=== PATIENT | female | born 1960 | race Caucasian/White ===

== ENCOUNTER 2023-06-27 20:18 | Emergency (ER) | payer MEDICARE, SELFPAY ==
[2023-06-27 20:39] VITALS: BP 145/92; PULSE 75; RESP 18; TEMP 36.4; O2SAT 99
--- NOTE | 2023-06-27 20:46 | XR_ITS ---
The [address] [address] Patient Name: JANET ELIAS MRN: [id number] date: 1960 Sex: F Assigned Patient Location: ER Current Patient Location: ED.MAIN Accession/Order Number: [id number] Exam Date: 06/27/2023 21:08 Report Date: 06/27/2023 21:38 At the request of: JIN LUIS Procedure: XR knee RT 3V EXAM: XR knee RT 3V HISTORY: Knee pain COMPARISON: None. TECHNIQUE: 3 views right knee FINDINGS: Status post right knee total arthroplasty. No evident hardware complication. Moderate to large joint effusion. No acute osseous abnormality. Possible posterior subluxation of the knee joint on the lateral view. XR/XR knee RT 3V IMPRESSION: Possible posterior subluxation of the knee joint on lateral view. Moderate to large joint effusion without acute osseous abnormality. No definite hardware complication otherwise. Electronically authenticated by: COLBY TORRES Date: 06/27/2023 21:38
--- NOTE | 2023-06-27 20:53 | ED_ITS ---
HPI - Extremity Injury (Lower) General Chief Complaint: Extremity Problem, Nontraumatic Stated Complaint: SEVERE KNEE PAIN Time Seen by Provider: 06/27/23 20:34 Source: patient Mode of arrival: Wheelchair Limitations: physical limitation Limitations comment: can't bear weight on right lower extremity History of Present Illness HPI Narrative: patient is a 62-year-old female who presents to the emergency department for the evaluation of right knee pain. She states she had a knee replacement twenty [address] Hurtado, she states in the last several weeks she has had intermittent pain to the anteromedial right knee. She denies any mechanism of injury or trauma. She states today when she was at the [facility] she had significantly increased pain and difficulty bearing weight. She has not had any redness or drainage from the knee. No fevers or vomiting. Her orthopedic surgeon is not aware of the symptoms, she has not yet been seen in the office. Related Data Home Medications Medication Instructions Recorded Confirmed levothyroxine 88 mcg tablet mcg 06/27/23 meloxicam 15 mg tablet mg 06/27/23 metoprolol succinate 50 mg mg PO 06/27/23 tablet,extended release 24 hr Previous Rx's Medication Instructions Recorded hydrocodone 5 mg-acetaminophen 325 1 tab PO Q6H PRN pain #12 tabs 06/27/23 mg tablet methylprednisolone 4 mg tablets in See Rx Instructions .Route 06/27/23 a dose pack (Medrol (Shane)) .COMPLEX #21 ea Allergies Allergy/AdvReac Type Severity Reaction Status Date / Time sulfamethoxazole Allergy Rash Verified 06/27/23 20:46 [From Bactrim] trimethoprim [From Bactrim] Allergy Rash Verified 06/27/23 20:46 Review of Systems ROS Constitutional Denies: fever or chills Ears, nose, mouth, and throat Denies: throat pain or neck pain Respiratory Denies: shortness of breath Gastrointestinal Denies: nausea or vomiting Musculoskeletal Reports: extremity pain and joint pain; Denies: back pain or neck pain Integumentary/Breast Denies: rash Neurological Denies: headache Hematologic/Lymphatic Denies: easy bruising Allergic/Immunologic Denies: hives PFSH PFS Social History Smoking status: Former smoker Exam Narrative Exam Narrative: Gen.: Awake, alert, in no distress Head: Normocephalic, atraumatic ENT: Moist mucous membranes Respiratory: No respiratory distress Extremities: pain with flexion of the right knee, well-healed surgical incision over the anterior right knee. Joint effusion noted to the medial aspect of the anterior knee. No erythema, warmth or pain out of proportion on flexion of the right knee. No bony tenderness of the right tibia or ankle. No laxity of the patella. No posterior right knee tenderness or calf tenderness. Psych: Normal mood and affect Neuro: No focal neuro deficit Skin: Warm, dry, intact Constitutional Vital Signs, click to edit/add: Last Vital Signs Temp 97.6 F 06/27/23 20:39 Pulse 75 06/27/23 20:39 Resp 18 06/27/23 20:39 BP 145/92 H 06/27/23 20:39 Pulse Ox 99 06/27/23 20:39 O2 Del Method Room Air 06/27/23 20:39 Course Vital Signs Vital signs: Vital Signs Temperature 97.6 F 06/27/23 20:39 Pulse Rate 75 06/27/23 20:39 Respiratory Rate 18 06/27/23 20:39 Blood Pressure 145/92 H 06/27/23 20:39 Pulse Oximetry 99 06/27/23 20:39 Oxygen Delivery Method Room Air 06/27/23 20:39 Temperature 97.6 F 06/27/23 20:39 Pulse Rate 75 06/27/23 20:39 Respiratory Rate 18 06/27/23 20:39 Blood Pressure 145/92 H 06/27/23 20:39 Pulse Oximetry 99 06/27/23 20:39 Oxygen Delivery Method Room Air 06/27/23 20:39 MDM - Extremity Injury (Lower) MDM Narrative Medical decision making narrative: x-ray show intact hardware of the right knee, joint effusion palpated on exam. Patient placed in her knee immobilizer which fits her appropriately, she remains neurovascularly intact. Bone spur is noted on the x-rays, this may be contributing to the patient's pain and swelling. She is encouraged to stay off the leg as much as possible, she has crutches which are the appropriate height for her. She will be started on a Medrol Dosepak and a short course of analgesics. It was strongly recommended that she follow up with her orthopedic surgeon for further evaluation and treatment. Return to the Emergency Room if symptoms change or worsen. Medical Records Attestation: I reviewed the patient's medical records. Imaging Data XR knee: Attestation: I personally reviewed and interpreted this imaging study as follows: My impression: NAD Discharge Plan Discharge Chief Complaint: Extremity Problem, Nontraumatic Clinical Impression: Acute pain of right knee, Acute joint effusion Patient Disposition: Home, Self-Care Time of Disposition Decision: 21:32 Condition: Good Prescriptions / Home Meds: New hydrocodone-acetaminophen 5-325 mg tablet 1 tab PO Q6H PRN (Reason: pain) Qty: 12 0RF Rx Instructions: DX: M25.561 methylprednisolone [Medrol (Shane)] 4 mg tablets,dose pack See Rx Instructions .ROUTE .COMPLEX Qty: 21 0RF Rx Instructions: Taper as directed No Action metoprolol succinate 50 mg tablet extended release 24 hr PO meloxicam 15 mg tablet levothyroxine 88 mcg tablet Instructions: Knee Pain (ED) Stand Alone Forms: Portal Instructions Referrals: NOHELIA THOMSON [Primary Care Provider] - 1 week Willie Hurtado DO [Physician] - 1 week Discharge Date/Time: 06/27/23 21:51
[2023-06-27] MEDS: OXYCODONE HCL/ACETAMINOPHEN 5MG/325MG 1 TAB PO (21:10)
[2023-06-27] MEDS: PREDNISONE 20 MG TABLET 60 MG PO (21:10)
[2023-06-27] MEDS: KETOROLAC TROMETHAMINE 10 MG TABLET PO (21:47)
== END 2023-06-27 21:51 | disposition home or self-care (01) ==
PROVIDERS: Emergency Provider Internal Medicine; PCP Family Medicine
DX: M25.461 Effusion, right knee (principal); M25.561 Pain in right knee; Z96.651 Presence of right artificial knee joint; Z79.899 Other long term (current) drug therapy; Z79.890 Hormone replacement therapy; Z87.891 Personal history of nicotine dependence
CPT/HCPCS: 73562; 99283

== ENCOUNTER 2023-08-15 10:55 | Outpatient (OUT) | payer MEDICARE, SELFPAY ==
[2023-08-15 11:20] LABS: Eosinophils Absolute Auto 0.1 10^3/uL (0.0-0.7); Eosinophils Percent Auto 3.4 % (0.9-7.0); Hematocrit 39.8 % (36.0-48.0); Hemoglobin 13.1 g/dL (12.0-16.0); Immature Granulocytes Abs Auto 0.01 10^3/uL (0.00-0.03); Immature Granulocytes Pct Auto 0.3 % (0.0-0.5); Lymphocytes Absolute Auto 1.1 10^3/uL (1.2-3.8); Lymphocytes Percent Auto 28.5 % (20.5-60.0); Mean Corpuscular HGB Conc 32.9 g/dL (29.9-35.2); Mean Corpuscular Hemoglobin 29.8 pg (26.7-34.0); Mean Corpuscular Volume 90.5 fL (81.0-99.0); Mean Platelet Volume 9.7 fL (9.5-13.5); Monocytes Absolute Auto 0.3 10^3/uL (0.3-0.8); Monocytes Percent Auto 7.8 % (1.7-12.0); Neutrophils Absolute Auto 2.3 10^3/uL (1.4-6.5); Platelet Count 239 10^3/uL (150-450); Red Cell Distribution Width 12.6 % (11.0-15.0); White Blood Count 3.9 10^3/uL (4.0-11.0)
[2023-08-15 11:45] LABS: Erythrocyte Sedimentation Rate 31 mm/hr (<=30)
[2023-08-15 11:51] LABS: C Reactive Protein <0.50 mg/dL (<=0.50)
[2023-08-15 14:11] LABS: D Dimer 0.97 mg/L FEU (<=0.59)
== END 2023-08-15 10:56 | disposition home or self-care (01) ==
LOC: LAB 10:59
PROVIDERS: PCP Family Medicine; Visit Provider Orthopaedic Surgery
DX: Z96.651 Presence of right artificial knee joint (principal); T84.84XA Pain due to internal orthopedic prosthetic devices, implants and grafts, initial encounter
CPT/HCPCS: 36415; 85025; 85378; 85652; 86140

== ENCOUNTER 2023-10-09 13:49 | Outpatient (RCR) | payer MEDICARE, SELFPAY | END 2023-10-31 17:20 | disposition home or self-care (01) | LOC: PT 13:49 | PROVIDERS: PCP Family Medicine | DX: Z96.651 Presence of right artificial knee joint (principal); Z47.1 Aftercare following joint replacement surgery | CPT/HCPCS: 97110 ==

== ENCOUNTER 2024-11-22 09:57 | Outpatient (RCR) | payer MEDICARE, SELFPAY | END 2024-12-14 07:03 | disposition home or self-care (01) | LOC: PT 09:57 | PROVIDERS: PCP Family Medicine; Visit Provider Orthopaedic Surgery | DX: Z47.1 Aftercare following joint replacement surgery (principal); Z96.651 Presence of right artificial knee joint | CPT/HCPCS: 97110; 97113; 97161 ==

== ENCOUNTER 2025-05-23 13:40 | Outpatient (OUT) | payer MEDICARE, SELFPAY ==
--- OUTSIDE RECORDS SUMMARY | 2025-05-23 13:44 | XMS_ITS | Encounter Summary ---
Author Organization [facility] Address [address] [place] [address] Care Team Providers Care Semiconductor Dies Loader Name Role Phone Brooks Rodarte MD Primary Care Provider [phone] Encounter Details Date Type Department Care Team (Late st Contact Info) Description 01/04/2019 [facility] [address] [place] [address] Leila Wheeler, [facility] [address] [place] [address] Social History Tobacco Use Types Packs/Day Years Used Date Smoking Tobacco: Never Assessed Comments Unknown Sex and Gender Information Value Date Recorded Sex Assigned at Not on file Legal Sex Female 7:05 PM EDT Gender Identity Not on file Sexual Orientation Not on file documented as of this encounter Plan of Treatment Not on file documented as of this encounter Visit Diagnoses Not on filedocumented in this encounter Care Teams Semiconductor Dies Loader Relationship Specialty Start Date End Date Brooks Rodarte MD [address] [place] [address] PCP - General Family Medicine 07/04/23 documented as of this encounter
--- OUTSIDE RECORDS SUMMARY | 2025-05-23 13:44 | XMS_ITS | Encounter Summary ---
Author Organization [facility] Address [address] [place] [address] Care Team Providers Care Nitroglycerin Supervisor Name Role Phone Brooks Rodarte MD Primary Care Provider [phone] Encounter Details Date Type Department Care Team (Late st Contact Info) Description 11/28/2021 Abstract [facility] [address] [place] [address] Leila Wheeler, [facility] [address] [place] [address] Social History Tobacco Use Types Packs/Day Years [...] on filedocumented in this encounter Care Teams Nitroglycerin Supervisor Relationship Specialty Start Date End Date Brooks Rodarte MD [address] [place] [address] PCP - General Family Medicine 07/04/23 documented as of this encounter
--- OUTSIDE RECORDS SUMMARY | 2025-05-23 13:44 | XMS_ITS | Encounter Summary ---
Author Organization [facility] Address [address] [place] [address] Care Team Providers Care Acting Professor Name Role Phone Brooks Rodarte MD Primary Care Provider [phone] Encounter Details Date Type Department Care Team (Late st Contact Info) Description 04/23/2016 Abstract [facility] [address] [place] [address] Leila Wheeler, [facility] [address] [place] [address] Social History Tobacco Use Types Packs/Day Years [...] on filedocumented in this encounter Care Teams Acting Professor Relationship Specialty Start Date End Date Brooks Rodarte MD [address] [place] [address] PCP - General Family Medicine 07/04/23 documented as of this encounter
--- OUTSIDE RECORDS SUMMARY | 2025-05-23 13:44 | XMS_ITS | Clinical Summary ---
Author Organization [facility] Address [id number] [address] [place] [address] Care Team Providers Care Optician Name Role Phone Brooks Rodarte DO Primary Care Provider [phone] Immunizations Immunization Administration Dates Next Due Covid-19,mrna, Lnp-s, Pf, 50mcg/0.5ml 12+ Season al 07/08/2023 Social History Tobacco Use Types Packs/Day Years Used Date Smoking Tobacco: Never Assessed Childcare Answer Date Recorded Childcare Unknown 02/10/2019 Employment Answer Date Recorded Employment Unknown 02/10/2019 Comments Unknown Sex and Gender Information Value Date Recorded Sex Assigned at Not on file Legal Sex Female 12:02 PM EDT Gender Identity Not on file Sexual Orientation Not on file Plan of Treatment Health Maintenance Due Date Last Done Comments Depression Screening 1971 Tobacco Screening 1971 Adult BMI Screening 1977 DTaP,Tdap and Td Vaccines (1 - Tdap) 1978 Zoster (Shingles) Vaccine (1 of 2) 2009 Fall Risk Screening 2024 COVID-19 Vaccine (6 - 2024-2 6 season) 2025 07/08/2023, 07/02/2022, 07/31/2021, Additional history exists Influenza Vaccine 05/02/2025 07/08/2023, 07/02/2022 Medical Devices Not on file Insurance [facility] Care Teams Optician Relationship Specialty Start Date End Date Brooks Rodarte DO PCP - General Family Medicine 07/11/23
--- OUTSIDE RECORDS SUMMARY | 2025-05-23 13:44 | XMS_ITS | Encounter Summary ---
Author Organization [facility] Address [address] [place] [address] Care Team Providers Care Foot Miter Operator Name Role Phone Brooks Rodarte MD Primary Care Provider [phone] Encounter Details Date Type Department Care Team (Late st Contact Info) Description 12/30/2016 Abstract [facility] [address] [place] [address] Leila Wheeler, [facility] [address] [place] [address] Social History Tobacco Use Types Packs/Day Years [...] on filedocumented in this encounter Care Teams Foot Miter Operator Relationship Specialty Start Date End Date Brooks Rodarte MD [address] [place] [address] PCP - General Family Medicine 07/04/23 documented as of this encounter
--- OUTSIDE RECORDS SUMMARY | 2025-05-23 13:44 | XMS_ITS | Encounter Summary ---
Author Organization [facility] Address [address] [place] [address] Care Team Providers Care Statement Clerks Manager Name Role Phone Brooks Rodarte MD Primary Care Provider [phone] Encounter Details Date Type Department Care Team (Late st Contact Info) Description 12/30/2016 Abstract [facility] [address] [place] [address] Leila Wheeler, [facility] [address] [place] [address] Social History Tobacco Use Types Packs/Day Years [...] on filedocumented in this encounter Care Teams Statement Clerks Manager Relationship Specialty Start Date End Date Brooks Rodarte MD [address] [place] [address] PCP - General Family Medicine 07/04/23 documented as of this encounter
--- OUTSIDE RECORDS SUMMARY | 2025-05-23 13:44 | XMS_ITS | Encounter Summary ---
Author Organization [facility] Address [address] [place] [address] Care Team Providers Care Towel Weaver Name Role Phone Brooks Rodarte MD Primary Care Provider [phone] Encounter Details Date Type Department Care Team (Late st Contact Info) Description 05/20/2016 Abstract [facility] [address] [place] [address] Leila Wheeler, [facility] [address] [place] [address] Social History Tobacco Use Types Packs/Day Years [...] on filedocumented in this encounter Care Teams Towel Weaver Relationship Specialty Start Date End Date Brooks Rodarte MD [address] [place] [address] PCP - General Family Medicine 07/04/23 documented as of this encounter
--- OUTSIDE RECORDS SUMMARY | 2025-05-23 13:44 | XMS_ITS | Encounter Summary ---
Author Organization [facility] Address [address] [place] [address] Care Team Providers Care Prop Maker Name Role Phone Brooks Rodarte MD Primary Care Provider [phone] Encounter Details Date Type Department Care Team (Late st Contact Info) Description 10/23/2016 Abstract [facility] [address] [place] [address] Leila Wheeler, [facility] [address] [place] [address] Social History Tobacco Use Types Packs/Day Years [...] on filedocumented in this encounter Care Teams Prop Maker Relationship Specialty Start Date End Date Brooks Rodarte MD [address] [place] [address] PCP - General Family Medicine 07/04/23 documented as of this encounter
--- OUTSIDE RECORDS SUMMARY | 2025-05-23 13:44 | XMS_ITS | Encounter Summary ---
Author Organization [facility] Address [address] [place] [address] Care Team Providers Care Director Of [employer]ance [employer] Name Role Phone Brooks Rodarte MD Primary Care Provider [phone] Encounter Details Date Type Department Care Team (Late st Contact Info) Description 06/12/2016 Abstract [facility] [address] [place] [address] Leila Wheeler, [facility] [address] [place] [address] Social History Tobacco Use Types Packs/Day Years [...] on filedocumented in this encounter Care Teams Director Of [employer] Relationship Specialty Start Date End Date Brooks Rodarte MD [address] [place] [address] PCP - General Family Medicine 07/04/23 documented as of this encounter
--- OUTSIDE RECORDS SUMMARY | 2025-05-23 13:44 | XMS_ITS | Clinical Summary ---
Author Organization [facility] Address [address] [place] [address] Care Team Providers Care Authorization Representative Name Role Phone House, Brooks Betts MD Primary Care Provider [phone] Allergies Active Allergy Reactions Criticality Noted Date Comments Sulfamethoxazole-Trimethoprim 2022 Medications METOPROLOL SUCCINATE ER PO 50 mg. 05/16/2023 Act cuca esomeprazole (NexIUM) [address] capsule 1 capsule 1 (one) time each day at the same time. Active levothyroxine (Synthroid, Levoxyl) 100 MCG tablet 05/16/2023 Active levothyroxine (Synthroid, Levoxyl) 88 MCG tablet 05/16/2023 Active meloxicam (Mobic) 15 MG tablet Take 15 mg by mouth in the morning. Active triamterene-hyd roCHLOROthiazid e (Dyazide) 37.5-25 MG capsule Active Active Problems No known active problems Family History Medical History Relation Name Comments Emphysema Father motor vehicular accident Maternal Grandfather Heart disease Maternal Grandmother Stroke Maternal Grandmother Hypertension Mother Ovarian cancer Mother Emphysema Paternal Grandfather Heart disease Paternal Grandfather Relation Name Status Comments Father Maternal Grandfather Maternal Grandmother Mother Paternal Grandfather Paternal Grandmother Social History Tobacco Use Types Packs/Day Years Used Date Smoking Tobacco: Former Cigarettes Smokeless Tobacco: Never Tobacco Cessation:Counseling Given: Not Answered Alcohol Use Standard Drinks/Week Comments Yes 0 (1 standard drink = 0.6 oz pure alcohol) 1-2 drinks, monthly or less. caffeine intake: 2-3 cups per day. Comments Unknown Sex and Gender Information Value Date Recorded Sex Assigned at Not on file Legal Sex Female 7:05 PM EDT Gender Identity Not on file Sexual Orientation Not on file Last Filed Vital Signs Vital Sign Reading Time Taken Comments Blood Pressure 140/75 12/03/2021 12:00 PM EDT Pulse - - Temperature - - Respiratory Rate - - Oxygen Saturation - - Inhaled Oxygen Concentration - - Weight 88.9 kg (196 lb) 07/04/2023 8:32 AM EDT Height 152.4 cm (5') 07/04/2023 8:32 AM EDT Body Mass Index 38.28 07/04/2023 8:32 AM EDT Plan of Treatment Health Maintenance Due Date Last Done Comments CT Colonography 1959 Colonoscopy 1959 Colorectal Cancer Screening 1959 FIT-DNA 1959 FIT 1959 FOBT 1959 Sigmoidoscopy 1959 Pap Smear 1980 Cervical Cancer Screening 1989 HPV/Cotest 1989 Mammogram 1999 Pneumococcal Vaccine: 65+ Ye ars (1 of 1 - PCV) 2009 Influenza Vaccine (#1) 2025 07/08/2023, 2021 Insurance [employer] Care Teams Authorization Representative Relationship Specialty Start Date End Date Brooks Rodarte MD [address] [place] [address] PCP - General Family Medicine 07/04/23
--- OUTSIDE RECORDS SUMMARY | 2025-05-23 13:44 | XMS_ITS | Encounter Summary ---
Author Organization [facility] Address [address] [place] [address] Care Team Providers Care Leather Stitcher Name Role Phone Brooks Rodarte MD Primary Care Provider [phone] Encounter Details Date Type Department Care Team (Late st Contact Info) Description 03/26/2016 Abstract [facility] [address] [place] [address] Leila Wheeler, [facility] [address] [place] [address] Social History Tobacco Use Types Packs/Day Years [...] on filedocumented in this encounter Care Teams Leather Stitcher Relationship Specialty Start Date End Date Brooks Rodarte MD [address] [place] [address] PCP - General Family Medicine 07/04/23 documented as of this encounter
--- OUTSIDE RECORDS SUMMARY | 2025-05-23 13:44 | XMS_ITS | Encounter Summary ---
Author Organization [facility] Address [address] [place] [address] Care Team Providers Care Medical Records Assistant Name Role Phone Brooks Rodarte MD Primary Care Provider [phone] Encounter Details Date Type Department Care Team (Late st Contact Info) Description 12/02/2016 Abstract [facility] [address] [place] [address] Leila Wheeler, [facility] [address] [place] [address] Social History Tobacco Use Types Packs/Day Years [...] on filedocumented in this encounter Care Teams Medical Records Assistant Relationship Specialty Start Date End Date Brooks Rodarte MD [address] [place] [address] PCP - General Family Medicine 07/04/23 documented as of this encounter
--- OUTSIDE RECORDS SUMMARY | 2025-05-23 13:44 | XMS_ITS | Encounter Summary ---
Author Organization [facility] Address [address] [place] [address] Care Team Providers Care Roller Coaster Engineer Name Role Phone Brooks Rodarte MD Primary Care Provider [phone] Encounter Details Date Type Department Care Team (Late st Contact Info) Description 12/30/2016 Abstract [facility] [address] [place] [address] Leila Wheeler, [facility] [address] [place] [address] Social History Tobacco Use Types Packs/Day Years [...] on filedocumented in this encounter Care Teams Roller Coaster Engineer Relationship Specialty Start Date End Date Brooks Rodarte MD [address] [place] [address] PCP - General Family Medicine 07/04/23 documented as of this encounter
--- OUTSIDE RECORDS SUMMARY | 2025-05-23 13:44 | XMS_ITS | Encounter Summary ---
Author Organization [facility] Address [address] [place] [address] Care Team Providers Care Settlement Processor Name Role Phone Brooks Rodarte MD Primary Care Provider [phone] Encounter Details Date Type Department Care Team (Late st Contact Info) Description 10/29/2016 Abstract [facility] [address] [place] [address] Leila Wheeler, [facility] [address] [place] [address] Social History Tobacco Use Types Packs/Day Years [...] on filedocumented in this encounter Care Teams Settlement Processor Relationship Specialty Start Date End Date Brooks Rodarte MD [address] [place] [address] PCP - General Family Medicine 07/04/23 documented as of this encounter
--- OUTSIDE RECORDS SUMMARY | 2025-05-23 13:44 | XMS_ITS | Encounter Summary ---
Author Organization [facility] Address [address] [place] [address] Care Team Providers Care Practice Coordinator Name Role Phone Brooks Rodarte MD Primary Care Provider [phone] Encounter Details Date Type Department Care Team (Late st Contact Info) Description 04/07/2000 Abstract [facility] [address] [place] [address] Leila Wheeler, [facility] [address] [place] [address] Social History Tobacco Use Types Packs/Day Years [...] on filedocumented in this encounter Care Teams Practice Coordinator Relationship Specialty Start Date End Date Brooks Rodarte MD [address] [place] [address] PCP - General Family Medicine 07/04/23 documented as of this encounter
--- OUTSIDE RECORDS SUMMARY | 2025-05-23 13:47 | XMS_ITS | CCD ---
Author Organization [facility] CliniSyoh Care Team Providers Care First Aid Director Name Role Phone ANAM COVINGTON Unavailable Unavailable ANAM COVINGTON Unavailable Unavailable ANAM COVINGTON Unavailable Unavailable MAYER, BROOKS Unavailable Unavailable MAYER, DR POZO Primary Care Unavailable MAYER, DR POZO Admitting Unavailable SACRAMENTO, DR JAXSON Jefferson Consulting Unavailable MAYER, DR POZO Attending Unavailable MAYER, DR POZO Consulting Unavailable MAYER, DR POZO Primary Care Unavailable MAYER, DR POZO Admitting Unavailable MAYER, DR POZO Attending Unavailable MAYER, DR POZO Consulting Unavailable [facility], DR SCOOTER Blank Consulting Unavailable MAYER, DR POZO Consulting Unavailable MAYER, DR POZO Primary Care Unavailable MAYER, DR POZO Admitting Unavailable MAYER, DR POZO Attending Unavailable Prince Bradford II Unavailable [phone] MD Prince Bradford II Attending Provider [phone] DO Brooks Thomson Primary Care Provider Mary Allen Unavailable MD Prince Bradford II Attending Provider DO Brooks Thomson Primary Care Provider FELICIA KRAMER Attending Unavailable JR. AGUILLON GEORGE C Attending Unavaila [facility] FELICIA KRAMER Attending Unavailable BROOKS THOMSON Referring Unavailable Prince Bradford MD Attending Provider House Broosk GIRRAD Primary Care Provider Prince Bradford MD Attending Provider House Brooks GIRARD Primary Care Provider [phone] Brooks Thomson Primary Care Unavailable Prince Bradford II Attending UnavailPrince Israel II Admitting Unavailabl e Brooks Thomson Primary Care Unavailable Prince Bradford II Attending UnavailPrince [place] II Admitting UnavailPrince [place] II Attending Unavailabl e House, Brooks Primary Care Unavailable Sanchez KELLY, Prince Muller Admitting Unavailabl e House, Brooks Primary Care Unavailable Sanchez KELLY, Prince Muller Attending Unavailabl e Sanchez KELLY, Prince Muller Admitting Unavailabl e House DO Brooks Primary Care Provider Elaine Crook MD Attending Provider HOUSE, BROOKS P Primary Care Unavailable HOUSE, BROOKS P Primary Care Unavailable HOUSE, BROOKS P Primary Care Unavailable HOUSE, BROOKS P Primary Care Unavailable HOUSE, BROOKS P Primary Care Unavailable HOUSE, BROOKS P Primary Care Unavailable HOUSE, BROOKS P Primary Care Unavailable HOUSE, BROOKS P Primary Care Unavailable HOUSE, DO BROOKS P Attending Unavailable HOUSE, BROOKS P Primary Care Unavailable HOUSE, BROOKS P Primary Care Unavailable HOUSE, DO BROOKS P Attending Unavailable HOUSE, BROOKS P Primary Care Unavailable HOUSE, BROOKS P Primary Care Unavailable HOUSE, DO BROOKS P Attending Unavailable HOUSE, BROOKS P Primary Care Unavailable HOUSE, DO BROOKS P Attending Unavailable HOUSE, BROOKS P Primary Care Unavailable HOUSE, DO BROOKS P Attending Unavailable Allergies Allergy Classification Reported Allergen(s) Allergy Type Date of Onset Reaction(s) Facility (7 sources) Sulfamethoxazole / Trimethoprim Drug Allergy Unknown [employer] Other (13 sources) Sulfamethoxazole; Translations: [sulfamethoxazole] Drug Allergy 4 [facility] (13 sources) Trimethoprim; Translations: [trimethoprim] Drug Allergy 4 [facility] (1 source) Sulfamethoxazole / Trimethoprim; Translations: [Bactrim] Drug Allergy [facility] Repository Medications Current Medications Medication Drug Class(es) Dates Sig (Normalized) Sig (Original) acetaminophen 500 mg oral tablet (17 sources) Start: 09-17-2023 take 1000 mg by mouth every eight hours Acetaminophen Active 1000 MG PO Q8H 0 September 17, 2023 1:00am Start: 09-03-2023 take 2 tablets by mouth every eight hours cholecalciferol 0.125 mg ora l tablet (18 sources) Vitamin D Start: 09-04-2023 take 1 tablet by albertina th once daily in the morning Start: 09-03-2023 take 1 capsule by mo uth once daily Cholecalciferol 125 MCG (5000 UT) 1 capsule Orally Once a day for 30 days Sep, Active diclofenac sodium 75 mg delayed release oral tablet (5 sources) Nonsteroidal Anti-inflammatory Drug Start: 11-03-2024 ergocalciferol 1.25 mg oral capsule (4 sources) Provitamin D2 Compound Start: 09-08-2023 take 1 capsule by mouth every week Ergocalciferol 1.25 MG (66380 UT) 1 capsule Orally Once a Week for 60 days Sep, Active esomeprazole 20 mg delayed release oral capsule (12 sources) Proton Pump Inhibitor Start: 09-04-2023 take 1 capsule by mouth once daily in the morning levothyroxine sodium 0.1 mg oral tablet (20 sources) l-Thyroxine Start: 09-04-2023 take 1 tablet by mouth once Start: 09-04-2023 take 1 tablet by mouth once Levothyroxine So dium Active 24 hr metoprolol succinate 5 0 mg extended release oral tablet (19 sources) beta-Adrenergic Emigdio Start: 09-04-2023 Start: 09-04-2023 take 75 mg by mouth once daily in the morning Metoprolol Succinate Active 75 MG PO Every morning September 04, 2023 1:00am Metoprolol Succi amalia ER Active ondansetron 8 mg oral tablet (6 sources) Serotonin-3 Receptor Antagonist Start: 09-03-2023 take 1 tablet by mouth three times daily as needed for nausea Ondansetron HCl 8 MG 1 tablet as needed for nausea Orally Three times a day for 10 days MED TO BED UPON DISCHARGE 09/16/23 Sep, Active rivaroxaban 10 mg oral tablet (6 sources) Factor Xa Inhibitor Start: 09-03-2023 take 1 tablet by mouth every twenty-four hours Xarelto 10 MG 1 tablet with food Orally Once a day for 35 days MED TO BED UPON DISCHARGE 09/16/23 Sep, Active temazepam 30 mg oral capsule (19 sources) Benzodiazepine Start: 09-04-2023 take 1 capsule by mouth once daily at bedtime Temazepam Active traMADol hydrochloride 50 mg oral tablet (17 sources) Opioid Agonist Start: 09-03-2023 take 1 tablet by mouth every six hours as needed for pain Triamterene-HCTZ (7 sources) Triamterene-HCT Z Active Completed/Discontinued Medications Medication Drug Class(es) Dates Sig (Normalized) Sig (Original) aspirin 81 mg delayed release oral tablet (11 sources) Platelet Aggregation Inhibitor, Nonsteroidal Anti-inflammatory Drug Start: 09-17-2023 End: 10-29-2023 take 1 tablet by mouth twice daily Aspirin 81 mg Tablet,Delayed Release (Dr/Ec) Discontinued 81 MG PO Twice daily 0 September 17, 2023 1:00am October 29, 2023 2:09pm cefadroxil 500 mg oral capsule (17 sources) Cephalosporin Antibacterial Start: 09-17-2023 End: 10-29-2023 take 1 capsule by mouth twice daily Cefadroxil 500 mg Capsule Discontinued 500 MG PO Twice daily 0 September 17, 2023 1:00am October 29, 2023 2:08pm Start: 09-03-2023 take 1 capsule by [facility] every twelve hours Cefadroxil 500 MG 1 tablet Orally every 12 hrs for 7 days MED TO BED UPON DISCHARGE 09/16/23 Sep, Active docusate sodium 50 mg / sennosides, shelter 8.6 mg oral tablet (17 sources) Start: 09-03-2023 End: 10-29-2023 take 2 tablets by mouth once daily Sennosides-Docusate Sodium 8.6-50 mg Tablet Discontinued 2 TAB PO Daily 0 September 17, 2023 1:00am October 29, 2023 2:08pm Ketorolac (7 sources) Nonsteroidal Anti-inflammatory Drug, Cyclooxygenase Inhibitor Start: 03-05-2019 Toradol per 15 mg Mar, 30 mg meloxicam 15 mg oral tablet (12 sources) Nonsteroidal Anti-inflammatory Drug Start: 09-04-2023 End: 09-18-2023 take 1 tablet by mouth once daily in the morning Meloxicam 15 mg Tablet Discontinued 15 MG PO Every morning September 04, 2023 1:00am September 18, 2023 12:02pm methylPREDNISolone 4 mg oral tablet (3 sources) Corticosteroid Start: 11-11-2024 End: 12-16-2024 Methylprednisolone (Medrol (Shane)) 4 mg tablets,dose pack Discontinued 4 MG PO as directed November 11, 2024 12:00am December 16, 2024 1:43pm oxyCODONE hydrochloride 5 mg oral tablet (17 sources) Opioid Agonist Start: 09-03-2023 End: 11-03-2024 take 1 tablet by mouth every four hours as needed for pain Oxycodone 5 mg Tablet Discontinued 5 MG PO Every 4 hours as needed for Pain Scale 6 - 10 0 September 17, 2023 November 03, 2024 12:06pm polyethylene glycol 3350 00548 mg powder for oral solution (17 sources) Osmotic Laxative Start: 09-03-2023 End: 10-29-2023 Polyethylene Glycol 3350 (Healthylax) 17 gram Powder In Packet Discontinued 17 GM PO Daily 0 September 17, 2023 1:00am October 29, 2023 2:08pm predniSONE 10 mg oral tablet (17 sources) Start: 09-03-2023 End: 10-29-2023 take 1 tablet by mouth once daily Prednisone 10 mg tablet Discontinued 10 MG PO Daily September 18, 2023 1:00am October 29, 2023 2:08pm Triamcinolone (7 sources) Corticosteroid Start: 03-05-2019 KENALOG - 10 mg Mar, 40 mg Problems Active Problems Problem Classification Problem Date Documented Da te Episodic/Chronic Complication of device; implant or graft (3 sources) Pain due to internal orthopedic prosthetic devices, implants and grafts, initial encounter Episodic Essential hypertension (15 sources) Hypertensive disorder; Translations: [Essential (primary) hypertension] 09-16-2023 Chronic Nausea and vomiting (1 source) Nausea with vomiting, unspecified; Translations: [NAUSEA WITH VOMITING UNSPECIFIED] Onset: 09-12-2022 Episodic Osteoarthritis (3 sources) Primary osteoarthritis, left wrist; Translations: [Primary osteoarthritis, left elbow] Onset: 02-04-2017 Chronic Osteoporosis (8 sources) Primary osteoporosis; Translations: [Age-related osteoporosis without current pathological fracture] Chronic Other aftercare (1 source) Patient encounter status; Translations: [Aftercare following joint replacement surgery] Chronic Other aftercare (18 sources) Aftercare following joint replacement surgery; Translations: [Aftercare following joint replacement] Onset: 11-03-2024 Chronic Other aftercare (1 source) Other terminal makeup operator (current) drug therapy Episodic Other connective tissue disease (17 sources) History of total knee arthroplasty; Translations: [Presence of right artificial knee joint] 10-28-2023 Chronic Other connective tissue disease (7 sources) Artificial knee joint present; Translations: [Presence of right artificial knee joint] Chronic Other connective tissue disease (7 sources) Presence of right artificial knee joint; Translations: [Knee joint replacement] Onset: 11-03-2024 Chronic Other connective tissue disease (11 sources) History of revision of right total knee arthroplasty; Translations: [Presence of right artificial knee joint] 09-17-2023 Chronic Other connective tissue disease (16 sources) Presence of unspecified artificial knee joint; Translations: [Knee joint replacement] 10-29-2023 Chronic Other connective tissue disease (3 sources) Dupuytren's disease of palm; Translations: [Palmar fascial fibromatosis [Dupuytren]] 02-15-2025 Episodic Other gastrointestinal disorders (4 sources) Diarrhea, unspecified; Translations: [DIARRHEA UNSPECIFIED] Onset: 09-09-2022 Episodic Other nervous system disorders (3 sources) Carpal tunnel syndrome of left wrist; Translations: [Carpal tunnel syndrome, left upper limb] 02-15-2025 Chronic Other nutritional; endocrine; and metabolic disorders (6 sources) Morbid obesity; Translations: [Morbid (severe) obesity due to excess calories] Chronic Other nutritional; endocrine; and metabolic disorders (1 source) Morbid (severe) obesity due to excess calories Chronic Thyroid disorders (16 sources) Hypothyroidism, unspecified; Translations: [Hypothyroidism] Onset: 02-11-2022 09-16-2023 Chronic Unclassified (2 sources) Unknown / UNK(Unknown) Onset: 02-04-2017 Past or Other Problems Problem Classification Problem Date Documented Da te Episodic/Chronic Fracture of upper limb (4 sources) Nondisplaced transverse fracture of shaft of left ulna, subsequent encounter for closed fracture with nonunion; Translations: [NONDISP TRANSVERSE FX SHAFT OF L ULNA, 7THK] Onset: 02-04-2017 Episodic Other connective tissue disease (4 sources) Pain in left foot; Translations: [PAIN IN LEFT FOOT] Onset: 05-10-2022 Episodic Other connective tissue disease (1 source) Neuralgia and neuritis, unspecified; Translations: [NEURALGIA AND NEURITIS UNSPECIFIED] Onset: 02-11-2022 Episodic Other screening for suspected conditions (not mental disorders or infectious disease) (1 source) Encounter for screening mammogram for malignant neoplasm of breast; Translations: [ENC SCR MAMMO MALIG NEOPLASM BREAST] Onset: 02-11-2022 Episodic Residual codes; unclassified (4 sources) Insomnia, unspecified; Translations: [INSOMNIA UNSPECIFIED] Onset: 02-07-2022 Episodic Residual codes; unclassified (1 source) Family history of malignant neoplasm of breast; Translations: [FAMILY HX MALIG NEOPLASM OF BREAST] Onset: 02-11-2022 Episodic Residual codes; unclassified (1 source) Family history of malignant neoplasm of ovary; Translations: [FAM HX MALIGNANT NEOPLASM OVARY] Onset: 02-11-2022 Episodic Results Test Name Value Interpretation Reference Range Facility Controlled Substances Agreem entson 02-16-2025 Controlled Substances Agreements [id number]#1.00OTGTI [facility] Consultation/Specialist Note on 11-16-2024 Consultation/Speciali st Note [id number]#1.00OTGTUC [facility] Consultation/Speciali st Note [id number][facility] reportOrdered By: Vinnie Emmanule on 11-11-2024 Study report [facility] [address] [place] [address] XRay Report Signed Patient: Janet Elias MR#: [id number] : 1960 Acct:[id number] Age/Sex: 64 / F ADM Date: 5 Loc: [facility] Room: Type: [facility] Attending Dr: Prince Bradford II, MD Copies to: Prince Bradford MD~ Ordering Provider: Prince Bradford MD Date of Service: 11/11/24 XR/XR knee RT 3V - NOT FOR ER USE: Z47.1 - Aftercare following joint replacement surgery RIGHT KNEE - 4 views CLINICAL HISTORY: Follow-up right TKA. COMPARISON: Right knee 09/08/2024 FINDINGS: Longstem prosthesis without hardware complication. No acute bony process. XR/XR knee RT 3V - NOT FOR ER USE IMPRESSION: NO HARDWARE COMPLICATION. Impression dictated by: Leonel Emmanuel Jr., D.OIsaiah11/11/2024 1:06 PM Dictation Location: RADIO-PC-23 Transcribed By: WILTON 11/11/24 1306 Dictated By: Leonel Emmanuel Jr, DO 11/11/24 1306 Signed By: 11/11/24 1306 [facility] XR knee RT 3V - NOT FOR ER U Mark 11-11-2024 XR knee RT 3V - NOT FOR ER USE [facility] [address] [place] [address] XRay Report Signed Patient: Janet Elias MR#: [id number] : 1960 Acct:[id number] Age/Sex: 64 / F ADM Date: 11/11/24 Loc: [facility] Room: Type: [facility] Attending Dr: Prince Bradford II, MD Copies to: Prince Bradford MD Ordering Provider: Prince Bradford MD Date of Service: 11/11/24 XR/XR knee RT 3V - NOT FOR ER USE: Z47.1 - Aftercare following joint replacement surgery RIGHT KNEE - 4 views CLINICAL HISTORY: Follow-up right TKA. COMPARISON: Right knee 09/08/2024 FINDINGS: Longstem prosthesis without hardware complication. No acute bony process. XR/XR knee RT 3V - NOT FOR ER USE IMPRESSION: NO HARDWARE COMPLICATION. Impression dictated by: Leonel Emmanuel Jr., D.O.11/11/2024 1:06 PM Dictation Location: RADIO-PC-23 Transcribed By: WILTON 11/11/24 1306 Dictated By: Leonel Emmanuel Jr, DO 11/11/24 1306 Signed By: 11/11/24 1306 Normal [facility] Basophils Auto (Bld) [#/Vol] Ordered By: Prince Bradford on 11-03-2024 Basophils (Bld) [#/Vol] Automated basophil count 0.0-0.2 [facility] Basophils/100 WBC Auto (Bld) Ordered By: Prince Bradford on 11-03-2024 Basophils/100 WBC (Bld) Automated basophil % . [facility] C reactive protein [Mass/vol ume] in Serum or PlasmaOrdered By: Prince Bradford on 11-03-2024 CRP [Mass/Vol] C reactive protein [Mass/volume] in Serum or Plasma High 0.0-0.5 [facility] C-Reactive Proteinon 025 C-Reactive Protein 0.7 mg/dL High 0.0-0.5 [facility] Comment on above: Result Comment: PERF ORMED BY: [place] [address] PATHOLOGIST LICENSED LOAN OFFICER ASSISTANT JOSS JEONG M.D. Performed By: #### C BC, CRP, DDIMER, ESR #### [address] Complete Blood Count Auto Di ffon 11-03-2024 Basophils (Bld) [#/Vol] 0.0 10*3/uL Normal 0.0-0.2 [facility] Comment on above: Performed By: #### C BC, CRP, DDIMER, ESR #### [address] Basophils/100 WBC (Bld) 1.3 % Normal . [facility] Comment on above: Performed By: #### C BC, CRP, DDIMER, ESR #### [address] Eosinophils (Bld) [#/Vol] 0.2 10*3/uL Normal 0.0-0.45 [facility] Comment on above: Performed By: #### C BC, CRP, DDIMER, ESR #### [address] Eosinophils/100 WBC (Bld) 5.6 % Normal . [facility] Comment on above: Performed By: #### C BC, CRP, DDIMER, ESR #### [address] Erythrocyte distribution width (RBC) [Ratio] 13.3 % Normal 11.9-15.3 [facility] Comment on above: Performed By: #### C BC, CRP, DDIMER, ESR #### [address] [address] [place] Hematocrit (Bld) [Volume fraction] 35.8 % Normal 34.0-46.4 [facility] Comment on above: Performed By: #### C BC, CRP, DDIMER, ESR #### [address] Hemoglobin (Bld) [Mass/Vol] 12.8 g/dL Normal 11.8-15.4 [facility] Comment on above: Performed By: #### C BC, CRP, DDIMER, ESR #### [address] Lymphocytes (Bld) [#/Vol] 0.9 10*3/uL Low 1.00-4.8 [facility] Comment on above: Performed By: #### C BC, CRP, DDIMER, ESR #### [address] Lymphocytes/100 WBC (Bld) 24.0 % Normal . [facility] Comment on above: Performed By: #### C BC, CRP, DDIMER, ESR #### [address] MCH (RBC) [Entitic mass] 31.3 pg Normal 24.7-34.3 [facility] Comment on above: Performed By: #### C BC, CRP, DDIMER, ESR #### [address] MCV (RBC) [Entitic vol] 87.7 fL Normal 80-100 [facility] Comment on above: Performed By: #### C BC, CRP, DDIMER, ESR #### [address] Mean Corpuscular HGB Conc 35.7 g/dL High 32.0-35.0 [facility] Comment on above: Performed By: #### C BC, CRP, DDIMER, ESR #### [address] Monocytes (Bld) [#/Vol] 0.3 10*3/uL Normal 0.0-0.8 [facility] Comment on above: Performed By: #### C BC, CRP, DDIMER, ESR #### [address] Monocytes/100 WBC (Bld) 8.8 % Normal . [facility] Comment on above: Performed By: #### C BC, CRP, DDIMER, ESR #### [address] Neutrophils (Bld) [#/Vol] 2.4 10*3/uL Normal 1.8-7.7 [facility] Comment on above: Performed By: #### C BC, CRP, DDIMER, ESR #### [address] Neutrophils/100 WBC (Bld) 60.3 % Normal . [facility] Comment on above: Performed By: #### C BC, CRP, DDIMER, ESR #### [address] NRBC% 0.1 /100{WBC} Normal 0-0.5 [facility] Comment on above: Performed By: #### C BC, CRP, DDIMER, ESR #### [address] Platelet mean volume (Bld) [Entitic vol] 8.1 fL Normal 6.3-10.7 [facility] Comment on above: Performed By: #### C BC, CRP, DDIMER, ESR #### [address] Platelets (Bld) [#/Vol] 240 10*3/uL Normal 150-450 [facility] Comment on above: Performed By: #### C BC, CRP, DDIMER, ESR #### [place] [address] [place] RBC (Bld) [#/Vol] 4.08 10*6/uL Normal 3.60-5.00 [facility] Comment on above: Performed By: #### C BC, CRP, DDIMER, ESR #### [address] [place] [address] [place] WBC (Bld) [#/Vol] 3.9 10*3/uL Normal 3.8-11.6 [facility] Comment on above: Performed By: #### C BC, CRP, DDIMER, ESR #### [address] D-Dimer High Sensitivityon 0 11-03-2024 D-Dimer High Sensitivity 579 ng/mL High 0-243 [facility] Comment on above: Result Comment: The reference range for D-dimer is <243 ng/mL D-dimer units. D-dimer results must be used in conjunction with a clinical pretest probability (PTP) assessment model for deep vein thrombosis (DVT) and pulmonary embolism (PE). Results <230 ng/mL d-dimer units can be used as a negative predictor in patients with low or moderate probability for DVT/PE. Results above the exclusion threshold of 230 ng/ml D-dimer units for DVT/PE may indicate the need for further diagnostic testing. D-Dimer can be increased in hospitalized patients due to co-morbid conditions. A hematocrit value greater than 55% may lead to inaccurate results in coagulation testing. Patients having hematocrit values >55% require a special collection tube for coagulation studies. Please contact the laboratory at [phone] for redraw instructions. PERFORMED BY: [place] [address] PATHOLOGIST LICENSED LOAN OFFICER ASSISTANT JOSS JEONG M.D. Performed By: #### C BC, CRP, DDIMER, ESR #### [place] [id number] [facility] Eosinophils Auto (Bld) [#/Vo l]Ordered By: Prince Bradford on 11-03-2024 Eosinophils (Bld) [#/Vol] Automated eosinophil count 0.0-0.45 [facility] Eosinophils/100 WBC Auto (Bl d)Ordered By: Prince Bradford on 11-03-2024 Eosinophils/100 WBC (Bld) Automated eosinophil % . [facility] Erythrocyte Sedimentation Ra jose 11-03-2024 ESR (Bld) [Velocity] 23 mm/h Normal 0-29 [facility] Comment on above: Result Comment: PERF ORMED BY: [facility] [address] [place] [address] PATHOLOGIST LICENSED LOAN OFFICER ASSISTANT JOSS JEONG M.D. Performed By: #### C BC, CRP, DDIMER, ESR #### [facility] [address] Erythrocyte distribution wid th Auto (RBC) [Ratio]Ordered By: Prince Bradford on 11-03-2024 Erythrocyte distribution width (RBC) [Ratio] Erythrocyte distribution width [Ratio] by Automated count 11.9-15.3 [facility] Erythrocyte sedimentation ra te by Photometric methodOrdered By: Prince Bradford on 11-03-2024 ESR Photometric method (Bld) [Velocity] Erythrocyte sedimentation rate by Photometric method 0-29 [facility] Fibrin D-dimer [Presence] in Platelet poor plasma by Latex agglutinationOrdered By: Prince Bradford on 11-03-2024 Fibrin D-dimer LA Ql (PPP) Fibrin D-dimer [Presence] in Platelet poor plasma by Latex agglutination High 0-243 [facility] Comment on above: The reference range for D-dimer is <243 ng/mL D-dimer units.D-dimer results must be used in conjunction with a clinicalpretest probability (PTP) assessment model for deep veinthrombosis (DVT) and pulmonary embolism (PE). Results <230ng/mL d-dimer units can be used as a negative predictor inpatients with low or moderate probability for DVT/PE.Results above the exclusion threshold of 230 ng/ml D-dimerunits for DVT/PE may indicate the need for furtherdiagnostic testing.D-Dimer can be increased in hospitalized patients due toco-morbid conditions.A hematocrit value greater than 55% may lead to inaccurate results in coagulation testing. Patients having hematocrit values >55% require a special collection tube for coagulation studies. Please contact the laboratory at [phone] for redraw instructions. Hematocrit Auto (Bld) [Volum e fraction]Ordered By: Prince Bradford on 11-03-2024 Hematocrit (Bld) [Volume fraction] Hematocrit [Volume Fraction] of Blood by Automated count 34.0-46.4 [facility] Hemoglobin [Mass/volume] in BloodOrdered By: Prince Bradford on 11-03-2024 Hemoglobin (Bld) [Mass/Vol] Hemoglobin [Mass/volume] in Blood 11.8-15.4 [facility] Leukocytes [#/volume] correc francis for nucleated erythrocytes in Blood by Automated counOrdered By: Prince Bradford on 11-03-2024 WBC corrected for nucl RBC Auto (Bld) [#/Vol] Leukocytes [#/volume] corrected for nucleated erythrocytes in Blood by Automated coun 3.8-11.6 [facility] Lymphocytes Auto (Bld) [#/Vo l]Ordered By: Prince Bradford on 11-03-2024 Lymphocytes (Bld) [#/Vol] Lymphocytes [#/volume] in Blood by Automated count Low 1.00-4.8 [facility] Lymphocytes/100 WBC Auto (Bl d)Ordered By: Prince Bradford on 11-03-2024 Lymphocytes/100 WBC (Bld) Lymphocytes/100 leukocytes in Blood by Automated count . [facility] MCH Auto (RBC) [Entitic mass ]Ordered By: Prince Bradford on 11-03-2024 MCH (RBC) [Entitic mass] MCH [Entitic mass] by Automated count 24.7-34.3 [facility] MCHC Auto (RBC) [Mass/Vol]Or dered By: Prince Bradford on 11-03-2024 MCHC (RBC) [Mass/Vol] MCHC [Mass/volume] by Automated count High 32.0-35.0 [facility] MCV Auto (RBC) [Entitic vol] Ordered By: Prince Bradford on 11-03-2024 MCV (RBC) [Entitic vol] MCV [Entitic volume] by Automated count 80-100 [facility] Monocytes Auto (Bld) [#/Vol] Ordered By: Prince Bradford on 11-03-2024 Monocytes (Bld) [#/Vol] Automated blood monocyte count 0.0-0.8 [facility] Monocytes/100 WBC Auto (Bld) Ordered By: Prince Bradford on 11-03-2024 Monocytes/100 WBC (Bld) Automated monocyte % . [facility] Neutrophils Auto (Bld) [#/Vo l]Ordered By: Prince Bradford on 11-03-2024 Neutrophils (Bld) [#/Vol] Neutrophils [#/volume] in Blood by Automated count 1.8-7.7 [facility] Neutrophils/100 WBC Auto (Bl d)Ordered By: Prince Bradford on 11-03-2024 Neutrophils/100 WBC (Bld) Automated neutrophil % . [facility] Nucleated erythrocytes [Pres ence] in Blood by Automated countOrdered By: Prince Bradford on 11-03-2024 Nucleated RBC Auto Ql (Bld) Nucleated erythrocytes [Presence] in Blood by Automated count 0-0.5 [facility] Platelet mean volume Auto (B ld) [Entitic vol]Ordered By: Prince Bradford on 11-03-2024 Platelet mean volume (Bld) [Entitic vol] Platelet mean volume [Entitic volume] in Blood by Automated count 6.3-10.7 [facility] Platelets Auto (Bld) [#/Vol] Ordered By: Prince Bradford on 11-03-2024 Platelets (Bld) [#/Vol] Platelets [#/volume] in Blood by Automated count 150-450 [facility] RBC Auto (Bld) [#/Vol]Ordere d By: Prince Bradford on 11-03-2024 RBC (Bld) [#/Vol] Erythrocytes [#/volu me] in Blood by Automated count 3.60-5.00 [facility] WBC Auto (Bld) [#/Vol]Ordere d By: Prince Bradford on 11-03-2024 WBC (Bld) [#/Vol] Leukocytes [#/volume ] in Blood by Automated count 3.8-11.6 [facility] Consultation/Specialist Note on 09-15-2024 Consultation/Speciali st Note [id number] FF [facility] X-ray reportOrdered By: Vinnie Emmanuel on 09-08-2024 Study report [facility] [address] [place] [address] XRay Report Signed Patient: Janet Elias MR#: [id number] : 1960 Acct:[id number] Age/Sex: 64 / F ADM Date: 5 Loc: [facility] Room: Type: [facility] CLI Attending Dr: Prince Bradford II, MD Copies to: Prince Bradford MD~ Ordering Provider: Prince Bradford MD Date of Service: 09/08/24 XR/XR knee RT 2V: Z47.1 - Aftercare following joint replacement surgery RIGHT KNEE - 4 views CLINICAL HISTORY: Follow-up right TKA revision COMPARISON: Right knee 12/10/2023 FINDINGS: Long stem prosthesis without radiographic complication or acute bony process. XR/XR knee RT 2V IMPRESSION: NO HARDWARE COMPLICATION. Impression dictated by: Tea Love Jr.OIsaiah09/08/2024 6:29 PM Dictation Location: [place] [address] Transcribed By: [facility] 09/08/241828 Dictated By: Leonel Emmanuel Jr, DO 09/08/241827 Signed By: 09/08/241828 [facility] XR knee RT 2Von 09-08-2024 XR knee RT 2V [facility] [address] [place] [address] XRay Report Signed Patient: Janet Elias MR#: [id number] : 1960 Acct:[id number] Age/Sex: 64 / F ADM Date: 09/08/24 Loc: [facility] Room: Type: [facility] CLI Attending Dr: Prince Bradford II, MD Copies to: Prince Bradford MD Ordering Provider: Prince Bradford MD Date of Service: 09/08/24 XR/XR knee RT 2V: Z47.1 - Aftercare following joint replacement surgery RIGHT KNEE - 4 views CLINICAL HISTORY: Follow-up right TKA revision COMPARISON: Right knee 12/10/2023 FINDINGS: Long stem prosthesis without radiographic complication or acute bony process. XR/XR knee RT 2V IMPRESSION: NO HARDWARE COMPLICATION. Impression dictated by: Lloyd Love Jr..OIsaiah09/08/2024 6:29 PM Dictation Location: RADIO-PC-18 Transcribed By: PWS 09/08/241828 Dictated By: Leonel Emmanuel Jr, DO 09/08/241827 Signed By: 09/08/241828 Normal [facility] XR knee RT 2Von 12-10-2023 XR knee RT 2V [facility] [address] [place] [address] XRay Report Signed Patient: Janet Elias MR#: [id number] : 1960 Acct:[id number] Age/Sex: 63 / F ADM Date: 12/10/23 Loc: [facility] Room: Type: [facility] Attending Dr: Prince Bradford II, MD Copies to: Prince Bradford MD Ordering Provider: Prince Bradford MD Date of Service: 12/10/23 XR/XR knee RT 2V: Z47.1 - Aftercare following joint replacement surgery ([id number]) XR/XR femur RT 2V*: Z47.1 - Aftercare following joint replacement surgery ([id number]) XR/XR tibia fibula RT 2V*: Z47.1 - Aftercare following joint replacement surgery 2 views RIGHT femur HISTORY: Status post RIGHT total knee arthroplasty 09/16/23 COMPARISON: 09/03/23 Revised RIGHT knee arthroplasty. No hardware failure. Adequate hips. Intact bony structures. Adequate alignment. XR/XR femur RT 2V* IMPRESSION: Unremarkable revised RIGHT knee arthroplasty. 2 views of the RIGHT knee. No hardware failure of revised RIGHT knee arthroplasty. Adequate alignment. No acute bony findings. Small joint effusion. Unremarkable soft tissues. IMPRESSION: Complicated revised RIGHT knee arthroplasty. 2 views of the RIGHT tibia and fibula Intact bony structures and adequate alignment. Unremarkable RIGHT knee arthroplasty. Mild RIGHT ankle degenerative change. IMPRESSION: Unremarkable revised RIGHT knee arthroplasty. Impression dictated by: Noé Beck M.D.12/10/2023 4:17 PM Dictation Location: RADIO-PC-01 Transcribed By: PWS 12/10/231616 Dictated By: Noé Beck DO 12/10/231614 Signed By: 04/10/24 1617 Normal [facility] Automated epithelial cells c ount in urine sediment (number/area)Ordered By: Prince Bradford on 09-04-2023 Epithelial cells Auto (Urine sed) [#/Area] 0-1 [HPF] 0-2 [facility] Automated erythrocytes count in urine sediment (number/area)Ordered By: Prince Bradford on 09-04-2023 RBC Auto (Urine sed) [#/Area] 0-1 [HPF] 0-4 [facility] Automated leukocytes count i n urine sediment (number/area)Ordered By: Prince Bradford on 09-04-2023 WBC Auto (Urine sed) [#/Area] 0-1 [HPF] 0-4 [facility] Automated urine hyaline cast s count (number/volume)Ordered By: Prince Bradford on 09-04-2023 Hyaline casts Auto (U) [#/Vol] None seen [LPF] 0-1 [facility] Basophils Auto (Bld) [#/Vol] Ordered By: Prince Bradford on 09-04-2023 Basophils (Bld) [#/Vol] 0.0 10*3/uL 0.0-0.2 [facility] Basophils/100 WBC Auto (Bld) Ordered By: Prince Bradford on 09-04-2023 Basophils/100 WBC (Bld) 0.8 % . [facility] Bilirubin Test strip Ql (U)O rdered By: Prince Bradford on 09-04-2023 Bilirubin Ql (U) Negative Negative [facility] Calcium [Mass/volume] in Ser um or PlasmaOrdered By: Prince Bradford on 09-04-2023 Calcium [Mass/Vol] 9.0 mg/dL 8.6-10.3 [facility] Carbon dioxide, total [Moles /volume] in Serum or PlasmaOrdered By: Prince Bradford on 09-04-2023 CO2 [Moles/Vol] 26.4 mmol/L 21.0-31.0 [facility] Chloride [Moles/volume] in S patricio or PlasmaOrdered By: Prince Bradford on 09-04-2023 Chloride [Moles/Vol] 95 mmol/L 98-107 [facility] Color Auto (U)Ordered By: Olena Bradford on 09-04-2023 Color (U) Yellow Yellow [facility] Creatinine [Mass/volume] in Serum or PlasmaOrdered By: Prince Bradford on 09-04-2023 Creatinine [Mass/Vol] 0.85 mg/dL 0.60-1.20 [facility] Eosinophils Auto (Bld) [#/Vo l]Ordered By: Prince Bradford on 09-04-2023 Eosinophils (Bld) [#/Vol] 0.1 10*3/uL 0.0-0.45 [facility] Eosinophils/100 WBC Auto (Bl d)Ordered By: Prince Bradford on 09-04-2023 Eosinophils/100 WBC (Bld) 3.1 % . [facility] Erythrocyte distribution wid th Auto (RBC) [Ratio]Ordered By: Prince Bradford on 09-04-2023 Erythrocyte distribution width (RBC) [Ratio] 12.5 % 11.9-15.3 [facility] Fructosamine [Moles/volume] in Serum or PlasmaOrdered By: Prince Bradford on 09-04-2023 Fructosamine [Moles/Vol] 207 umol/L 0-285 [facility] Comment on above: Published reference interval for apparently healthysubjects between age 20 and 60 is 205 - 285 umol/L and in apoorly controlled diabetic population is 228 - 563 umol/Lwith a mean of 396 umol/L.Performed at: - [facility] [id number] Director: Walter Prince PhD, Phone: [phone] Glucose [Mass/volume] in Ser um or PlasmaOrdered By: Prince Bradford on 09-04-2023 Glucose [Mass/Vol] 107 mg/dL 70-100 [facility] Comment on above: ADA recommended refe rence rangeRandom Glucose Reference Range is dependent on time and content of last meal. Glucose of more than 200 mg/dL in a nonstressed, ambulatory subject supports the diagnosis of Diabetes Mellitus. Hematocrit Auto (Bld) [Volum e fraction]Ordered By: Prince Bradford on 09-04-2023 Hematocrit (Bld) [Volume fraction] 40.1 % 34.0-46.4 [facility] Hemoglobin [Mass/volume] in BloodOrdered By: Prince Bradford on 09-04-2023 Hemoglobin (Bld) [Mass/Vol] 14.0 g/dL 11.8-15.4 [facility] Ketones Auto test strip (U) [Mass/Vol]Ordered By: Prince Bradford on 09-04-2023 Ketones (U) [Mass/Vol] Negative Negative [facility] Leukocytes [#/volume] correc frnacis for nucleated erythrocytes in Blood by Automated counOrdered By: Prince Bradford on 09-04-2023 WBC corrected for nucl RBC Auto (Bld) [#/Vol] 4.2 10*3/uL 3.8-11.6 [facility] Lymphocytes Auto (Bld) [#/Vo l]Ordered By: Prince Bradford on 09-04-2023 Lymphocytes (Bld) [#/Vol] 1.3 10*3/uL 1.00-4.8 [facility] Lymphocytes/100 WBC Auto (Bl d)Ordered By: Prince Bradford on 09-04-2023 Lymphocytes/100 WBC (Bld) 31.8 % . [facility] MCH Auto (RBC) [Entitic mass ]Ordered By: Prince Bradford on 09-04-2023 MCH (RBC) [Entitic mass] 30.3 pg 24.7-34.3 [facility] MCHC Auto (RBC) [Mass/Vol]Or dered By: Prince Bradford on 09-04-2023 MCHC (RBC) [Mass/Vol] 34.9 g/dL 32.0-35.0 [facility] MCV Auto (RBC) [Entitic vol] Ordered By: Prince Bradford on 09-04-2023 MCV (RBC) [Entitic vol] 86.8 fL 80-100 [facility] Monocytes Auto (Bld) [#/Vol] Ordered By: Prince Bradford on 09-04-2023 Monocytes (Bld) [#/Vol] 0.4 10*3/uL 0.0-0.8 [facility] Monocytes/100 WBC Auto (Bld) Ordered By: Prince Bradford on 09-04-2023 Monocytes/100 WBC (Bld) 8.8 % . [facility] Neutrophils Auto (Bld) [#/Vo l]Ordered By: Prince Bradford on 09-04-2023 Neutrophils (Bld) [#/Vol] 2.4 10*3/uL 1.8-7.7 [facility] Neutrophils/100 WBC Auto (Bl d)Ordered By: Prince Bradford on 09-04-2023 Neutrophils/100 WBC (Bld) 55.5 % . [facility] Nitrite Test strip Ql (U)Ord ered By: Prince Bradford on 09-04-2023 Nitrite Ql (U) Negative Negative [facility] No Panel InformationOrdered By: Prince Bradford on 09-04-2023 Estimated GFR (CKD-EPI) > 60.0 mL/Min [facility] Pharmacy Creatinine Clearance (Chem N/A [facility] Nucleated erythrocytes [Pres ence] in Blood by Automated countOrdered By: Prince Bradford on 09-04-2023 Nucleated RBC Auto Ql (Bld) 0.1 /100{WBC} 0-0.5 [facility] Platelet mean volume Auto (B ld) [Entitic vol]Ordered By: Prince Bradford on 09-04-2023 Platelet mean volume (Bld) [Entitic vol] 8.3 fL 6.3-10.7 [facility] Platelets Auto (Bld) [#/Vol] Ordered By: Prince Bradford on 09-04-2023 Platelets (Bld) [#/Vol] 267 10*3/uL 150-450 [facility] Potassium [Moles/volume] in Serum or PlasmaOrdered By: Prince Bradford on 09-04-2023 Potassium [Moles/Vol] 4.3 mmol/L 3.5-5.1 [facility] Protein Auto test strip (U) [Mass/Vol]Ordered By: Prince Bradford on 09-04-2023 Protein (U) [Mass/Vol] Negative Negative [facility] RBC Auto (Bld) [#/Vol]Ordere d By: Prince Bradford on 09-04-2023 RBC (Bld) [#/Vol] 4.62 10*6/uL 3.60-5.00 [facility] Serum or plasma anion gap de terminationOrdered By: Prince Bradford on 09-04-2023 Anion gap [Moles/Vol] 10.9 mmol/L 6.0-15.0 [facility] Sodium [Moles/volume] in Ser um or PlasmaOrdered By: Prince Bradford on 09-04-2023 Sodium [Moles/Vol] 128 mmol/L 136-145 [facility] Specific gravity Auto test s trip (U) [Rel density]Ordered By: Prince Bradford on 09-04-2023 Specific gravity (U) [Rel density] 1.006 1.001-1.03 0 [facility] Urea nitrogen [Mass/volume] in Serum or PlasmaOrdered By: Prince Bradford on 09-04-2023 Urea nitrogen [Mass/Vol] 9 mg/dL 7-25 [facility] Urine bacteria detection by automated methodOrdered By: Prince Bradford on 09-04-2023 Bacteria Auto Ql (U) None seen None Seen [facility] Urine clarity by refractomet ry automatedOrdered By: Prince Bradford on 09-04-2023 Clarity Refractometry automated (U) Clear Clear [facility] Urine glucose measurement by automated test strip (mass/volume)Ordered By: Prince Bradford on 09-04-2023 Glucose Auto test strip (U) [Mass/Vol] Normal mg/dL Normal [facility] Urine hemoglobin detection b y automated test stripOrdered By: Prince Bradford on 09-04-2023 Hemoglobin Auto test strip Ql (U) Negative Negative [facility] Urine leukocyte esterase det ection by automated test stripOrdered By: Prince Bradford on 09-04-2023 Leukocyte esterase Auto test strip Ql (U) 1+ Negative [facility] Urobilinogen Auto test strip (U) [Mass/Vol]Ordered By: Prince Bradford on 09-04-2023 Urobilinogen (U) [Mass/Vol] Normal mg/dL Normal [facility] WBC Auto (Bld) [#/Vol]Ordere d By: Prince Bradford on 09-04-2023 WBC (Bld) [#/Vol] 4.2 10*3/uL 3.8-11.6 [facility] pH Auto test strip (U)Ordere d By: Prince Bradford on 09-04-2023 pH (U) 6.5 [pH] 5.0-9.0 [facility] Albumin [Mass/volume] in Ser um or Plasma by Bromocresol green (BCG) dye binding methoOrdered By: Prince Bradford on 09-03-2023 Albumin BCG dye [Mass/Vol] 4.2 g/dL 3.5-5.7 [facility] Basophils Auto (Bld) [#/Vol] Ordered By: Prince Bradford on 09-03-2023 Basophils (Bld) [#/Vol] 0.0 10*3/uL 0.0-0.2 [facility] Basophils/100 WBC Auto (Bld) Ordered By: Prince Bradford on 09-03-2023 Basophils/100 WBC (Bld) 1.0 % . [facility] C reactive protein [Mass/vol ume] in Serum or PlasmaOrdered By: Prince Bradford on 09-03-2023 CRP [Mass/Vol] < 0.5 mg/dL 0.0-0.5 [facility] Cotinine [Mass/volume] in Se rum or PlasmaOrdered By: Prince Bradford on 09-03-2023 Cotinine [Mass/Vol] <1.0 ng/mL . [facility] Comment on above: This test was develo ped and its performance characteristicsdetermined by [employer]. It has not been cleared orapproved by the Food and Drug Administration.Cotinine levels greater than 20.0 are consistent with theuse of tobacco or tobacco cessation products.Performed at: [facility] [address] [id number] Director: Ritika Don MD, Phone: [phone] Eosinophils Auto (Bld) [#/Vo l]Ordered By: Prince Bradford on 09-03-2023 Eosinophils (Bld) [#/Vol] 0.2 10*3/uL 0.0-0.45 [facility] Eosinophils/100 WBC Auto (Bl d)Ordered By: Prince Bradford on 09-03-2023 Eosinophils/100 WBC (Bld) 3.7 % . [facility] Erythrocyte distribution wid th Auto (RBC) [Ratio]Ordered By: Prince Bradford on 09-03-2023 Erythrocyte distribution width (RBC) [Ratio] 12.4 % 11.9-15.3 [facility] Erythrocyte sedimentation ra te by Photometric methodOrdered By: Prince Bradford on 09-03-2023 ESR Photometric method (Bld) [Velocity] 19 mm/hr 0-29 [facility] Fibrin D-dimer [Presence] in Platelet poor plasma by Latex agglutinationOrdered By: Prince Bradford on 09-03-2023 Fibrin D-dimer LA Ql (PPP) 313 ng/mL 0-243 [facility] Comment on above: The reference range for D-dimer is <243 ng/mL D-dimer units.D-dimer results must be used in conjunction with a clinicalpretest probability (PTP) assessment model for deep veinthrombosis (DVT) and pulmonary embolism (PE). Results <230ng/mL d-dimer units can be used as a negative predictor inpatients with low or moderate probability for DVT/PE.Results above the exclusion threshold of 230 ng/ml D-dimerunits for DVT/PE may indicate the need for furtherdiagnostic testing.D-Dimer can be increased in hospitalized patients due toco-morbid conditions.A hematocrit value greater than 55% may lead to inaccurate results in coagulation testing. Patients having hematocrit values >55% require a special collection tube for coagulation studies. Please contact the laboratory at [phone] for redraw instructions. Glucose mean value [Mass/vol ume] in Blood Estimated from glycated hemoglobinOrdered By: Prince Bradford on 09-03-2023 Average glucose Estimated from glycated hemoglobin (Bld) [Mass/Vol] 117 mg/dL [facility] Hematocrit Auto (Bld) [Volum e fraction]Ordered By: Prince Bradford on 09-03-2023 Hematocrit (Bld) [Volume fraction] 40.6 % 34.0-46.4 [facility] Hemoglobin A1c percentageOrd ered By: Prince Bradford on 09-03-2023 HbA1c (Bld) [Mass fraction] 5.7 % 4.3-5.6 [facility] Comment on above: Increased risk for d iabetes: 5.7 - 6.4diabetes: >6.4glycemic control for adults with diabetes: <7.0 Hemoglobin [Mass/volume] in BloodOrdered By: Prince Bradford on 09-03-2023 Hemoglobin (Bld) [Mass/Vol] 13.8 g/dL 11.8-15.4 [facility] Leukocytes [#/volume] correc francis for nucleated erythrocytes in Blood by Automated counOrdered By: Prince Bradford on 09-03-2023 WBC corrected for nucl RBC Auto (Bld) [#/Vol] 4.3 10*3/uL 3.8-11.6 [facility] Lymphocytes Auto (Bld) [#/Vo l]Ordered By: Prince Bradford on 09-03-2023 Lymphocytes (Bld) [#/Vol] 1.4 10*3/uL 1.00-4.8 [facility] Lymphocytes/100 WBC Auto (Bl d)Ordered By: Prince Bradford on 09-03-2023 Lymphocytes/100 WBC (Bld) 33.5 % . [facility] MCH Auto (RBC) [Entitic mass ]Ordered By: Prince Bradford on 09-03-2023 MCH (RBC) [Entitic mass] 29.8 pg 24.7-34.3 [facility] MCHC Auto (RBC) [Mass/Vol]Or dered By: Prince Bradford on 09-03-2023 MCHC (RBC) [Mass/Vol] 34.0 g/dL 32.0-35.0 [facility] MCV Auto (RBC) [Entitic vol] Ordered By: Prince Bradford on 09-03-2023 MCV (RBC) [Entitic vol] 87.4 fL 80-100 [facility] Monocytes Auto (Bld) [#/Vol] Ordered By: Prince Bradford on 09-03-2023 Monocytes (Bld) [#/Vol] 0.4 10*3/uL 0.0-0.8 [facility] Monocytes/100 WBC Auto (Bld) Ordered By: Prince Bradford on 09-03-2023 Monocytes/100 WBC (Bld) 9.2 % . [facility] Neutrophils Auto (Bld) [#/Vo l]Ordered By: Prince Bradford on 09-03-2023 Neutrophils (Bld) [#/Vol] 2.3 10*3/uL 1.8-7.7 [facility] Neutrophils/100 WBC Auto (Bl d)Ordered By: Prince Bradford on 09-03-2023 Neutrophils/100 WBC (Bld) 52.6 % . [facility] Nicotine [Mass/volume] in Se rum or PlasmaOrdered By: Prince Bradford on 09-03-2023 Nicotine [Mass/Vol] <1.0 ng/mL . [facility] Comment on above: This test was develo ped and its performance characteristicsdetermined by [employer]. It has not been cleared orapproved by the Food and Drug Administration.Nicotine levels greater than 2.0 are consistent with theuse of tobacco or tobacco cessation products. Nucleated erythrocytes [Pres ence] in Blood by Automated countOrdered By: Prince Bradford on 09-03-2023 Nucleated RBC Auto Ql (Bld) 0.3 /100{WBC} 0-0.5 [facility] Platelet mean volume Auto (B ld) [Entitic vol]Ordered By: Prince Bradford on 09-03-2023 Platelet mean volume (Bld) [Entitic vol] 8.9 fL 6.3-10.7 [facility] Platelets Auto (Bld) [#/Vol] Ordered By: Prince Bradford on 09-03-2023 Platelets (Bld) [#/Vol] 264 10*3/uL 150-450 [facility] RBC Auto (Bld) [#/Vol]Ordere d By: Prince Bradford on 09-03-2023 RBC (Bld) [#/Vol] 4.65 10*6/uL 3.60-5.00 [facility] Vitamin D+Metabolites [Mass/ volume] in Serum or PlasmaOrdered By: Prince Bradford on 09-03-2023 Vitamin D+Metabolites [Mass/Vol] 30.4 ng/mL 30-100 [facility] Comment on above: VITAMIN D STATUS 25( [place])VITAMIN D RANGE (ng/mL) Deficient <20 Insufficient 20 to <30Sufficient 30 to 100Reference: Tobi SANCHEZ,[place], Rosales RIVERS, et al. Evaluation,treatment, and prevention of vitamin D deficiency; an Endocrine Society clinical practice guideline. JCEM. 2010; 96(7):1911-30. WBC Auto (Bld) [#/Vol]Ordere d By: Prince Bradford on 09-03-2023 WBC (Bld) [#/Vol] 4.3 10*3/uL 3.8-11.6 [facility] Wound methicillin resistant Staphylococcus aureus (MRSA) cultureOrdered By: Prince Bradford on 09-03-2023 MRSA isol Org specific cx Ql (Unsp spec) [facility] XR tibia fibula RT 2V*on XR tibia fibula RT 2V* [facility] [employer] Other XR tibia fibula RT 2V* [facility] [place] [employer] Other XR tibia fibula RT 2V* [address] [place] [address] [employer] Other XR tibia fibula RT 2V* [place] [address] [employer] Other XR tibia fibula RT 2V* XRay Report [employer] Other XR tibia fibula RT 2V* Signed [employer] Other XR tibia fibula RT 2V* Patient: Janet Elias MR#: [id number] [employer] Other XR tibia fibula RT 2V* [address] [employer] [employer] Other XR tibia fibula RT 2V* : 1960 Acct:[id number] [employer] Other XR tibia fibula RT 2V* Age/Sex: 63 / F ADM Date: 09/03/23 [employer] Other XR tibia fibula RT 2V* Loc: SOXD Room: Type: REG CLI [employer] Other XR tibia fibula RT 2V* Attending Dr: Prince Bradford II, MD [employer] Other XR tibia fibula RT 2V* Copies to: Prince Bradford MD [employer] Other XR tibia fibula RT 2V* Ordering Provider: Prince Bradford MD [employer] Other XR tibia fibula RT 2V* Date of Service: 09/03/23 [employer] Other XR tibia fibula RT 2V* XR/XR tibia fibula RT 2V*: History of total right knee replacement [employer] Other XR tibia fibula RT 2V* ([id number]) XR/XR femur RT 2V*: History of total right knee replacement [employer] Other XR tibia fibula RT 2V* RIGHT FEMUR AND TIB-FIB - one view [employer] Other XR tibia fibula RT 2V* CLINICAL DATA: Follow-up right knee replacement [employer] Other XR tibia fibula RT 2V* COMPARISON: Right knee 08/15/2023 [employer] Other XR tibia fibula RT 2V* AP standing view to include the femur and tib-fib bilaterally was obtained using a long cassette. [employer] Other XR tibia fibula RT 2V* Patient has bilateral knee prostheses. These appear intact and in appropriate position. [employer] Other XR tibia fibula RT 2V* The femurs shows no acute fracture or dislocation. There is no prominent degenerative change at [employer] Other XR tibia fibula RT 2V* either hip. There is minor sclerosis at the SI joints. [employer] Other XR tibia fibula RT 2V* The tibia and fibula on both sides show no acute fracture or dislocation. No soft tissue [employer] Other XR tibia fibula RT 2V* abnormalities are present. [employer] Other XR tibia fibula RT 2V* XR/XR femur RT 2V* [employer] Other XR tibia fibula RT 2V* IMPRESSION: [employer] Other XR tibia fibula RT 2V* SATISFACTORY SINGLE VIEW ASSESSMENT OF KNEE REPLACEMENTS. [employer] Other XR tibia fibula RT 2V* NO ACUTE BONY FINDINGS INVOLVING THE FEMUR, TIBIA OR FIBULA. [employer] Other XR tibia fibula RT 2V* Impression dictated by: Gunjan Fletcher M.D.09/03/2023 2:38 PM [employer] Other XR tibia fibula RT 2V* Dictation Location: [facility]- [employer] Other XR tibia fibula RT 2V* Transcribed By: WILTON 09/03/23 [facility] [employer] Other XR tibia fibula RT 2V* Dictated By: Gunjan Fletcher MD 09/03/23 [facility] [employer] Other XR tibia fibula RT 2V* Signed By: [employer] Other XR tibia fibula RT 2V* 09/03/23 [facility] [employer] Other XR knee RT 3Von 08-15-2023 XR knee RT 3V [id number]) XR/XR knee RT 3V - NOT FOR ER USE: History of total right knee [employer] Other XR knee RT 3V replacement [employer] Other XR knee RT 3V 3 views right knee p agustina film [employer] Other XR knee RT 3V HISTORY: Right knee pain and swelling since June. [employer] Other XR knee RT 3V ACUTE FINDINGS: No a cute findings [employer] Other XR knee RT 3V DEGENERATIVE CHANGE: Unremarkable [place] [employer] Other XR knee RT 3V SOFT TISSUE FINDINGS : Unremarkable [place] [employer] Other XR knee RT 3V JOINT EFFUSION: Mode rate joint effusion [facility] [employer] Other XR knee RT 3V POSTOP CHANGES: No hardware abnormality. [employer] Other XR knee RT 3V BONE MINERALIZATION: Adequate [facility] [employer] Other XR knee RT 3V X R/XR knee RT 3V - NOT FOR ER USE [facility] [employer] Other XR knee RT 3V IMPRESSION: Uncompli cated right knee arthroplasty. Moderate joint effusion. [employer] Other XR knee RT 3V Impression dictated by: Noé Beck M.D.08/15/2023 12:12 PM [place] [employer] Other XR knee RT 3V Transcribed By: PWS 08/15/23 1212 [employer] Other XR knee RT 3V Dictated By: Olayinka Beck DO 08/15/23 1204 [employer] Other XR knee RT 3V 08/15/23 1212 [facility] [employer] Other XR pelvis 1-2Von 08-15-2023 XR pelvis 1-2V [facility] [employer] Other XR pelvis 1-2V [facility] [employer] Other XR pelvis 1-2V 1111 [facility] [employer] Other XR pelvis 1-2[place] [address] No rt [employer] Other XR pelvis 1-2V XRay Report [facility] [employer] Other XR pelvis 1-2V Signed [employer] Other XR pelvis 1-2V Patient: August Elias MR#: [id number] [employer] Other XR pelvis 1-2V 4123 [employer] Other XR pelvis 1-2V : 1960 Acct:[id number] [employer] Other XR pelvis 1-2V Age/Sex: 63 / F ADM Date: 08/15/23 [employer] Other XR pelvis 1-2V Loc: SOXD Room: Type : [facility] [employer] Other XR pelvis 1-2V Attending Dr: Prince Bradford II, MD [employer] Other XR pelvis 1-2V Copies to: Prince Bradford MD [employer] Other XR pelvis 1-2V Ordering Provider: Abhay Bradford MD [employer] Other XR pelvis 1-2V Date of Service: 08/15/23 [employer] Other XR pelvis 1-2V [id number]) XR/XR pelvis 1-2V: History of total right knee replacement [employer] Other XR pelvis 1-2V Single view of the p shivani plain film [employer] Other XR pelvis 1-2V HISTORY: Right knee pain and swelling since June [employer] Other XR pelvis 1-2V COMPARISON: None [facility] [employer] Other XR pelvis 1-2V ACUTE FINDINGS: None [employer] Other XR pelvis 1-2V BONY ALIGNMENT: Adequate [employer] Other XR pelvis 1-2V SOFT TISSUES: Unremarkable [employer] Other XR pelvis 1-2V DEGENERATIVE CHANGE:Unremarkable hips. Mild SI joint degeneration. Moderate lower lumbar [employer] Other XR pelvis 1-2V degenerative change. [employer] Other XR pelvis 1-2V INTRAPELVIC STRUCTUR ES: Unremarkable [employer] Other XR pelvis 1-2V POSTSURGICAL CHANGES:None [employer] Other XR pelvis 1-2V X R/XR pelvis 1-2V [employer] Other XR pelvis 1-2V IMPRESSION:Unremarka ble hips. SI joint and lower lumbar degenerative change. [employer] Other XR pelvis 1-2V Impression dictated by: Noé Beck M.D.08/15/2023 12:14 PM [employer] Other XR pelvis 1-2V Dictation Location: [place] [address] [employer] Other XR pelvis 1-2V Transcribed By: PWS 08/15/23 [facility]4 [employer] Other XR pelvis 1-2V Dictated By: Olayinka Beck DO 08/15/23 [facility] [employer] Other XR pelvis 1-2V Signed By: [employer] Other XR pelvis 1-2V 08/15/23 [facility]4 [employer] Other CBC AUTO DIFFon 09-09-2022 BASO # 0.0 103/ul Normal 0.0-0.1 [facility] [place] [facility] Comment on above: Performed By: #### C BC #### [facility] [address] [place] [address] Dr. Alyssa Gusman Basophils/100 WBC (Bld) 1.0 % Normal 0.2-2.0 [facility] [place] [facility] Comment on above: Performed By: #### C BC #### [facility] [address] [place] [address] Dr. Alyssa Gusman EO # 0.0 103/ul Normal 0.0-0.7 [facility] [place] [facility] Comment on above: Performed By: #### C BC #### [facility] [address] [place] [address] Dr. Alyssa Gusman Eosinophils/100 WBC (Bld) 1.0 % Normal 0.9-7.0 [facility] [place] [facility] Comment on above: Performed By: #### C BC #### [facility] [address] [place] [address] Dr. Alyssa Gusman Erythrocyte distribution width (RBC) [Ratio] 11.4 % Normal 11.0-15.0 [facility] Comment on above: Performed By: #### C BC #### [facility] [address] [place] [address] Dr. Alyssa Gusman Hematocrit (Bld) [Volume fraction] 37.9 % Normal 36.0-48.0 [facility] Comment on above: Performed By: #### C BC #### [facility] [address] [place] [address] Dr. Alyssa Gusman Hemoglobin (Bld) [Mass/Vol] 14.6 g/dL Normal 12.0-16.0 [facility] [place] [facility] Comment on above: Performed By: #### C BC #### [facility] [address] [place] [address] Dr. Alyssa Gusman IG # 0.02 10e3/ul Normal 0.00-0.03 [facility] [place] [facility] Comment on above: Performed By: #### C BC #### [facility] [address] [place] [address] Dr. Alyssa Gusman IG % 0.5 % Normal 0.0-0.5 [facility] [place] [facility] Comment on above: Performed By: #### C BC #### [facility] [address] [place] [address] Dr. Alyssa Gusman LYMPH # 1.0 103/ul Critically low 1.2-3.8 [facility] Comment on above: Performed By: #### C BC #### [facility] [address] [place] [address] Dr. Alyssa Gusman Lymphocytes/100 WBC (Bld) 24.6 % Normal 20.5-60.0 [facility] Comment on above: Performed By: #### C BC #### [facility] [address] [place] [address] Dr. Alyssa Gusman MANUAL DIFF REQ NO Normal [facility] Comment on above: Performed By: #### C BC #### [facility] [address] [place] [address] Dr. Alyssa Gusman MCH (RBC) [Entitic mass] 29.7 pg Normal 26.7-34.0 [facility] [place] [facility] Comment on above: Performed By: #### C BC #### [facility] [address] [place] [address] Dr. Alyssa Gusman MCHC (RBC) [Mass/Vol] 38.5 g/dL Critically high 29.9-35.2 [facility] Comment on above: Performed By: #### C BC #### [facility] [address] [place] [address] Dr. Alyssa Gusman MCV (RBC) [Entitic vol] 77.2 fL Critically low 81.0-99.0 [facility] Comment on above: Performed By: #### C BC #### [facility] [address] [place] [address] Dr. Alyssa Gusman MONO # 0.5 103/ul Normal 0.3-0.8 [facility] Comment on above: Performed By: #### C BC #### [facility] [address] [place] [address] Dr. Alyssa Gusman Monocytes/100 WBC (Bld) 12.1 % Critically high 1.7-12.0 [facility] [place] [facility] Comment on above: Performed By: #### C BC #### [facility] [address] [place] [address] Dr. Alyssa Gusman NEUT # 2.4 103/ul Normal 1.4-6.5 [facility] [place] [facility] Comment on above: Performed By: #### C BC #### [facility] [address] [place] [address] Dr. Alyssa Gusman Neutrophils/100 WBC (Bld) 60.8 % Normal 43.0-75.0 [facility] Comment on above: Performed By: #### C BC #### [facility] [address] [place] [address] Dr. Alyssa Gusman Platelet mean volume (Bld) [Entitic vol] 9.7 fL Normal 9.5-13.5 [facility] Comment on above: Performed By: #### C BC #### [facility] [address] [place] [address] Dr. Alyssa Gusman PLT 314 103/ul Normal 150-450 [facility] [place] [facility] Comment on above: Performed By: #### C BC #### [facility] [address] [place] [address] Dr. Alyssa Gusman RBC 4.91 106/ul Normal 4.20-5.40 [facility] Comment on above: Performed By: #### C BC #### [facility] [address] [place] [address] Dr. Alyssa Gusman WBC 3.9 103/ul Critically low 4.0-11.0 [facility] Comment on above: Performed By: #### C BC #### [facility] [address] [place] [address] Dr. Alyssa Gusman MAGNESIUMon 09-09-2022 Magnesium [Mass/Vol] 1.7 mg/dL Critically low 1.8-2.4 [facility] Comment on above: Performed By: #### M G, CMP #### [facility] [address] [place] [address] Dr. Alyssa Gusman PROF 14(COMP METB)on 023 Albumin [Mass/Vol] 3.8 g/dL Normal 3.4-5.0 [facility] Comment on above: Performed By: #### M Leonard, CMP #### [facility] [address] [place] [address] Dr. Alyssa Gusman Albumin/Globulin [Mass ratio] 1.2 {ratio} Normal [facility] Comment on above: Performed By: #### M Leonard, CMP #### [facility] [address] [address] [address] Alyssa Gusman ALP [Catalytic activity/Vol] 74 U/L Normal 46-116 [facility] Comment on above: Performed By: #### M G, CMP #### [facility] [address] [address] [address] Alyssa Gusman ALT [Catalytic activity/Vol] 46 U/L Normal 14-59 [facility] Comment on above: Performed By: #### M G, CMP #### [facility] [address] [address] [address] Alyssa Gusman Anion gap [Moles/Vol] 10.4 mmol/L Normal Th [facility] Comment on above: Performed By: #### M G, CMP #### [facility] [address] [place] [address] Dr. Alyssa Gusman AST [Catalytic activity/Vol] 33 U/L Normal 15-37 [facility] Comment on above: Performed By: #### M G, CMP #### [facility] [address] [place] [address] Dr. Alyssa Gusman Bilirubin [Mass/Vol] 0.8 mg/dL Normal 0.2-1.0 [facility] Comment on above: Performed By: #### M G, CMP #### [facility] [address] [place] [address] Dr. Alyssa Gusman Calcium [Mass/Vol] 9.2 mg/dL Normal 8.5-10.1 [facility] Comment on above: Performed By: #### M G, CMP #### [facility] [address] [place] [address] Dr. Alyssa Gusman Chloride [Moles/Vol] 82 mmol/L Critically low 98-107 [facility] Comment on above: Performed By: #### M G, CMP #### [facility] [address] [address] [address] Alyssa Gusman CO2 [Moles/Vol] 32.4 mmol/L Critically high 21.0-32.0 [facility] Comment on above: Performed By: #### M G, CMP #### [facility] [address] [address] [address] Alyssa Gusman Creatinine [Mass/Vol] 1.42 mg/dL Critically high 0.55-1.02 [facility] Comment on above: Performed By: #### M G, CMP #### [facility] [address] [address] [address] Alyssa Gusman EGFR-AF TANZANIAN 45 mL/min/1.73m2 Critically low >=60 [facility] Comment on above: Performed By: #### M G, CMP #### [facility] [address] [address] [address] Alyssa Gusman EGFR-NON AF TANZANIAN 37 mL/min/1.73m2 Critically low >=60 [facility] Comment on above: Performed By: #### M G, CMP #### [facility] [address] [address] [address] Alyssa Gusman Globulin (S) [Mass/Vol] 3.3 g/dL Normal [facility] Comment on above: Performed By: #### M G, CMP #### [facility] [address] [address] [address] Alyssa Gusman Glucose [Mass/Vol] 112 mg/dL Critically high 74-106 T [facility] Comment on above: Performed By: #### Yohana G, CMP #### [facility] [address] [address] [address] Alyssa Gusman Potassium [Moles/Vol] 2.8 mmol/L Critically low 3.5-5.1 [facility] Comment on above: Performed By: #### M G, CMP #### [facility] [address] [address] [address] Alyssa Gusman Protein [Mass/Vol] 7.1 g/dL Normal 6.4-8.2 [facility] Comment on above: Performed By: #### M G, CMP #### [facility] [address] [address] [address] Alyssa Gusman Sodium [Moles/Vol] 122 mmol/L Critically low 136-145 Th [facility] Comment on above: Performed By: #### M G, CMP #### [facility] [address] [place] [address] Dr. Alyssa Gusman Urea nitrogen [Mass/Vol] 15.0 mg/dL Normal 7.0-18.0 [facility] Comment on above: Performed By: #### M G, CMP #### [facility] [address] [place] [address] Dr. Alyssa Gusman Urea nitrogen/Creatinine [Mass ratio] 10.6 mg/mg Normal [facility] Comment on above: Performed By: #### M G, CMP #### [facility] [address] [place] [address] Dr. Alyssa Gusman T4 LABCORPon 02-08-2022 T4 [Mass/Vol] 11.1 ug/dL Normal 4.5-12.0 [facility] Comment on above: Performed By: #### T 4LC #### [facility] [address] [place] [address] Dr. Alyssa Gusman CBC AUTO DIFFon 02-07-2022 BASO # 0.0 103/ul Normal 0.0-0.1 [facility] Comment on above: Performed By: #### C BC #### [facility] [address] [place] [address] Dr. Alyssa Gusman Basophils/100 WBC (Bld) 0.9 % Normal 0.2-2.0 [facility] Comment on above: Performed By: #### C BC #### [facility] [address] [place] [address] Dr. Alyssa Gusman EO # 0.1 103/ul Normal 0.0-0.7 [facility] Comment on above: Performed By: #### C BC #### [facility] [address] [place] [address] Dr. Alyssa Gusman Eosinophils/100 WBC (Bld) 3.4 % Normal 0.9-7.0 [facility] Comment on above: Performed By: #### C BC #### [facility] [address] [place] [address] Dr. Alyssa Gusman Erythrocyte distribution width (RBC) [Ratio] 12.4 % Normal 11.0-15.0 [facility] Comment on above: Performed By: #### C BC #### [facility] [address] [place] [address] Dr. Alyssa Gusman Hematocrit (Bld) [Volume fraction] 39.3 % Normal 36.0-48.0 [facility] Comment on above: Performed By: #### C BC #### [facility] [address] [place] [address] Dr. Alyssa Gusman Hemoglobin (Bld) [Mass/Vol] 13.2 g/dL Normal 12.0-16.0 [facility] Comment on above: Performed By: #### C BC #### [facility] [address] [place] [address] Dr. Alyssa Gusman IG # 0.00 10e3/ul Normal 0.00-0.03 [facility] Comment on above: Performed By: #### C BC #### [facility] [address] [place] [address] Dr. Alyssa Gusman IG % 0.0 % Normal 0.0-0.5 [facility] Comment on above: Performed By: #### C BC #### [facility] [address] [place] [address] Dr. Alyssa Gusman LYMPH # 1.2 103/ul Normal 1.2-3.8 [facility] Comment on above: Performed By: #### C BC #### [facility] [address] [place] [address] Dr. Alyssa Gusman Lymphocytes/100 WBC (Bld) 34.1 % Normal 20.5-60.0 [facility] Comment on above: Performed By: #### C BC #### [facility] [address] [place] [address] Dr. Alyssa Gusman MANUAL DIFF REQ NO Normal [facility] Comment on above: Performed By: #### C BC #### [facility] [address] [place] [address] Dr. Alyssa Gusman MCH (RBC) [Entitic mass] 30.2 pg Normal 26.7-34.0 [facility] Comment on above: Performed By: #### C BC #### [facility] [address] [address] [address] Alyssa Gusman MCHC (RBC) [Mass/Vol] 33.6 g/dL Normal 29.9-35.2 [facility] Comment on above: Performed By: #### C BC #### [facility] [address] [place] [address] Dr. Alyssa Gusman MCV (RBC) [Entitic vol] 89.9 fL Normal 81.0-99.0 [facility] Comment on above: Performed By: #### C BC #### [facility] [address] [place] [address] Dr. Alyssa Gusman MONO # 0.4 103/ul Normal 0.3-0.8 [facility] Comment on above: Performed By: #### C BC #### [facility] [address] [place] [address] Dr. Alyssa Gusman Monocytes/100 WBC (Bld) 11.4 % Normal 1.7-12.0 [facility] Comment on above: Performed By: #### C BC #### [facility] [address] [place] [address] Dr. Alyssa Gusman NEUT # 1.8 103/ul Normal 1.4-6.5 [facility] Comment on above: Performed By: #### C BC #### [facility] [address] [place] [address] Dr. Alyssa Gusman Neutrophils/100 WBC (Bld) 50.2 % Normal 43.0-75.0 [facility] Comment on above: Performed By: #### C BC #### [facility] [address] [place] [address] Dr. Alyssa Gusman Platelet mean volume (Bld) [Entitic vol] 10.5 fL Normal 9.5-13.5 [facility] Comment on above: Performed By: #### C BC #### [facility] [address] [place] [address] Dr. Alyssa Gusman PLT 241 103/ul Normal 150-450 [facility] [place] [facility] Comment on above: Performed By: #### C BC #### [facility] [address] [place], [place] [address] Dr. Alyssa Gusman RBC 4.37 106/ul Normal 4.20-5.40 [facility] Comment on above: Performed By: #### C BC #### [facility] [address] [place], [place] [address] Dr. Alyssa Gusman WBC 3.5 103/ul Critically low 4.0-11.0 [facility] Comment on above: Performed By: #### C BC #### [facility] [address] [place], [place] [address] Dr. Alysas Gusman MG MAMM SCREEN 3D DEX CADon 02-07-2022 MG MAMM SCREEN 3D DEX CAD Patient: JANET ELIAS Exam Date: 02/07/2022 : 1960 Gender:F Ordering : DR BROOKS THOMSON D.O. Admission #: [id number] Family : Order #: [id number] CLICK HERE TO VIEW EXAM RADIOLOGY REPORT PROCEDURE: MAMMOGRAM SCREENING 3D BILATERAL CAD COMPARISON: MG MAMM SCREEN DEX W CAD, 07/25/2017. MG MAMM SCREEN DEX W CAD, 08/21/2020. INDICATIONS: Screening mammography Calculator Name NCI Breast Cancer Risk Assessment Tool 5 Year Breast Cancer Risk 1.70% Lifetime Breast Cancer Risk 7.70% Personal Breast Cancer No Personal Ovarian Cancer No Treatments None Family Cancers Grandmother-maternal with breast cancer at age 71; Mother with ovarian cancer at age 36. LOCATION: [facility] BREAST COMPOSITION: Scattered areas fibroglandular density. FINDINGS: DIAGNOSTIC CATEGORY 1--NEGATIVE. NO CHANGE FROM COMPARISON ASSESSMENT. Scattered benign-appearing calcifications are present. Scattered benign-appearing lymph nodes are present. Scattered benign-appearing nodules are present. RIGHT BREAST: No significant suspicious finding. LEFT BREAST: No significant suspicious finding. RECOMMENDATIONS: ROUTINE MAMMOGRAM AND CLINICAL EVALUATION IN 12 MONTHS. PLEASE NOTE: A NORMAL MAMMOGRAM DOES NOT EXCLUDE THE POSSIBILITY OF BREAST CANCER. A CLINICALLY SUSPICIOUS PALPABLE LUMP SHOULD BE BIOPSIED. Dictated by: Jaxson Foster MD on 02/07/2022 at 10:21 Approved by: Jaxson Foster MD on 02/07/2022 at 10:22 Normal [facility] PROF 14(COMP METB)on 06-09-2 022 Albumin [Mass/Vol] 3.5 g/dL Normal 3.4-5.0 [facility] Comment on above: Performed By: #### T RAVINDRA, CMP #### [facility] [address] [place] [address] Dr. Alyssa Gusman Albumin/Globulin [Mass ratio] 1.0 {ratio} Normal [facility] Comment on above: Performed By: #### T RAVINDRA, CMP #### [facility] [address] [place] [address] Dr. Alyssa Gusman ALP [Catalytic activity/Vol] 68 U/L Normal 46-116 [facility] Comment on above: Performed By: #### T RAVINDRA, CMP #### [facility] [address] [place] [address] Dr. Alyssa Gusman ALT [Catalytic activity/Vol] 39 U/L Normal 14-59 [facility] Comment on above: Performed By: #### T RAVINDRA, CMP #### [facility] [address] [place] [address] Dr. Alyssa Gusman Anion gap [Moles/Vol] 13.7 mmol/L Normal [facility] [place] Comment on above: Performed By: #### T RAVINDRA, CMP #### [facility] [address] [place] [address] Dr. Alyssa Gusman AST [Catalytic activity/Vol] 22 U/L Normal 15-37 [facility] Comment on above: Performed By: #### T RAVINDRA, CMP #### [facility] [address] [place] [address] Dr. Alyssa Gusman Bilirubin [Mass/Vol] 0.4 mg/dL Normal 0.2-1.0 [facility] Comment on above: Performed By: #### T RAVINDRA, CMP #### [facility] [address] [place] [address] Dr. Alyssa Gusman Calcium [Mass/Vol] 8.5 mg/dL Normal 8.5-10.1 [facility] Comment on above: Performed By: #### T RAVINDRA, CMP #### [facility] [address] [place] [address] Dr. Alyssa Gusman Chloride [Moles/Vol] 100 mmol/L Normal 98-107 [facility] Comment on above: Performed By: #### T SH, CMP #### [facility] [address] [place] [address] Dr. Alyssa Gusman CO2 [Moles/Vol] 27.5 mmol/L Normal 21.0-32.0 [facility] Comment on above: Performed By: #### T SH, CMP #### [facility] [address] [place] [address] Dr. Alyssa Gusman Creatinine [Mass/Vol] 0.79 mg/dL Normal 0.55-1.02 [facility] Comment on above: Performed By: #### T SH, CMP #### [facility] [address] [place] [address] Dr. Alyssa Gusman EGFR-AF TANZANIAN >60 Normal >=60 [facility] Comment on above: Performed By: #### T SH, CMP #### [facility] [address] [place] [address] Dr. Alyssa Gusman EGFR-NON AF TANZANIAN >60 Normal >=60 [facility] Comment on above: Performed By: #### T SH, CMP #### [facility] [address] [place] [address] Dr. Alyssa Gusman Globulin (S) [Mass/Vol] 3.4 g/dL Normal [facility] Comment on above: Performed By: #### T SH, CMP #### [facility] [address] [place] [address] Dr. Alyssa Gusman Glucose [Mass/Vol] 110 mg/dL Critically high 74-106 [facility] Comment on above: Performed By: #### T SH, CMP #### [facility] [address] [place] [address] Dr. Alyssa Gusman Potassium [Moles/Vol] 4.2 mmol/L Normal 3.5-5.1 [facility] Comment on above: Performed By: #### T SH, CMP #### [facility] [address] [place] [address] Dr. Alyssa Gusman Protein [Mass/Vol] 6.9 g/dL Normal 6.4-8.2 [facility] Comment on above: Performed By: #### T SH, CMP #### [facility] [address] [place] [address] Dr. Alyssa Gusman Sodium [Moles/Vol] 137 mmol/L Normal 136-145 [facility] Comment on above: Performed By: #### T SH, CMP #### [facility] [address] [place] [address] Dr. Alyssa Gusman Urea nitrogen [Mass/Vol] 15.0 mg/dL Normal 7.0-18.0 [facility] Comment on above: Performed By: #### T SH, CMP #### [facility] [address] [place] [address] Dr. Alyssa Gusman Urea nitrogen/Creatinine [Mass ratio] 18.9 mg/mg Normal [facility] Comment on above: Performed By: #### T SH, CMP #### [facility] [address] [place] [address] Dr. Alyssa Gusman TSHon 02-07-2022 TSH 1.298 uIU/mL Normal 0.358-3.74 0 [facility] Comment on above: Performed By: #### T SH, CMP #### [facility] [address] [place] [address] Dr. Alyssa Gusman TSH RANGE SEE BELOW Normal [facility] Comment on above: Result Comment: <0.3 4 UIU/ml HYPERTHYROID 0.34-5.60 UIU/ml EUTHYROID >5.60 UIU/ml HYPOTHYROID Performed By: #### T SH, CMP #### [facility] [address] [place] [address] Dr. Alyssa Gusman Vital Signs Date Time Vital Sign Value Performing Clinician Facility 02-15-2025 13:02-040 Body height 152.4 cm [facility] Work Phone: [facility] 02-15-2025 13:02-0400 Body mass index (BMI) [Ratio] 36.7 kg/m2 [facility] Work Phone: [facility] 02-15-2025 13:02-0400 Body weight 85.27 kg Brooks Thomson DO Work Phone: [facility] 09-18-2023 07:40-0500 Body temperature 97.4 [degF] MD Prince Bradford II Work Phone: [facility] 09-18-2023 07:40-0500 Diastolic blood pressure 78 mm[Hg] MD Prince Bradford II Work Phone: [facility] 09-18-2023 07:40-0500 Heart rate 86 /min MD Prince Bradford II Work Phone: [facility] 09-18-2023 07:40-0500 Respiratory rate 20 /min MD Prince Bradford II Work Phone: [facility] 09-18-2023 07:40-0500 SaO2% (BldA) [Mass fraction] 93 % MD Prince Bradford II Work Phone: [facility] 09-18-2023 07:40-0500 Systolic blood pressure 130 mm[Hg] MD Prince Bradford II Work Phone: [facility] 09-17-2023 12:27-0500 Body height 152.4 cm MD Prince Bradford II Work Phone: [facility] 09-16-2023 18:05-0500 Inhaled oxygen flow rate 1 L/min MD Prince Bradford II Work Phone: [facility] 09-16-2023 11:52-0500 Body mass index (BMI) [Ratio] 38.7 kg/m2 MD Prince Bradford II Work Phone: [facility] 09-16-2023 11:52-0500 Body weight 89.9 kg MD Prince Bradford II Work Phone: [facility] 08-15-2023 09:00-0500 Body height 152.4 cm Prince Bradford II Other [employer] Other 08-15-2023 09:00-0500 Body mass index (BMI) [Ratio] 37.1 kg/m2 Prince Bradford II Other [employer] Other 08-15-2023 09:00-0500 Body weight 86.18 kg Prince Bradford II Other [employer] Other Encounters Encounter Date Encounter Type Care Provider Facility Start: 05-23-2025 ambulatory BR[facility]KS P HOUSE Facilit y:[facility] Start: 05-18-2025 ambulatory BR[facility]KS P [facility]SE Facilit y:[facility] Start: 04-21-2025 End: 04-21-2025 ambulatory BR[facility]KS P HOUSE Facility:[facility] Start: 03-31-2025 End: 03-31-2025 ambulatory Brooks House DO Work Phone: [facility] Work Phone: Start: 03-31-2025 End: 03-31-2025 Patient encounter procedure Elaine Crook MD -[facility] Work Phone: Start: 03-21-2025 End: 03-21-2025 ambulatory BROOKS P HOUSE Facility:[facility] Start: 02-16-2025 ambulatory BROOKS P HOUSE Facilit y:[facility] Start: 02-15-2025 End: 02-15-2025 Patient encounter procedure Elaine Crook MD -[facility] Work Phone: Start: 02-14-2025 End: 02-14-2025 ambulatory BROOKS P HOUSE Facility:[facility] Start: 01-20-2025 End: 01-20-2025 ambulatory [facility]KS P [facility]SE [facility] Start: 12-20-2024 End: 12-20-2024 ambulatory [facility] Start: 11-17-2024 ambulatory BROOKS P HOUSE Facilit y:[facility] Start: 11-11-2024 End: 11-11-2024 ambulatory Brooks House DO Work Phone: [facility] Work Phone: Start: 11-11-2024 End: 11-11-2024 Patient encounter procedure Brooks House DO Work Phone: [facility] Work Phone: Start: 11-03-2024 End: 11-03-2024 ambulatory Brooks House DO Work Phone: [facility] Work Phone: Start: 11-03-2024 End: 11-03-2024 Patient encounter procedure Brooks House DO Work Phone: [facility] Work Phone: Start: 10-22-2024 End: 10-22-2024 ambulatory BROOKS P HOUSE Facility:[facility] Start: 09-22-2024 End: 09-22-2024 ambulatory BR[facility]KS P HOUSE Facility:[facility] Start: 09-08-2024 End: 09-08-2024 Patient encounter procedure Brooks House DO Work Phone: [facility] Work Phone: Start: 09-08-2024 End: 09-08-2024 ambulatory Brooks House DO Work Phone: [facility] Work Phone: Start: 08-18-2024 ambulatory BROOKS P HOUSE Facilit y:[facility] Start: 07-21-2024 End: 07-21-2024 ambulatory BROOKS P HOUSE Facility:[facility] Start: 06-22-2024 End: 06-22-2024 ambulatory BROOKS P HOUSE Facility:[facility] Start: 03-03-2024 End: 03-03-2024 ambulatory FELICIA KRAMER Not Available Start: 12-30-2023 End: 12-30-2023 ambulatory FELICIA KRAMER Not Available Start: 12-10-2023 End: 12-10-2023 ambulatory DO Brooks House Work Phone: [facility] Work Phone: Start: 12-10-2023 End: 12-10-2023 Patient encounter procedure DO Brooks House Work Phone: [facility] Work Phone: Start: 12-10-2023 End: 12-10-2023 Patient encounter procedure DO Brooks House Work Phone: [facility] [place] [facility] Start: 12-10-2023 End: 12-10-2023 ambulatory DO Brooks House Work Phone: [facility] Work Phone: Start: 10-29-2023 End: 10-29-2023 Patient encounter procedure MD Prince Bradford II Work Phone: [facility] Work Phone: Start: 10-01-2023 End: 10-01-2023 ambulatory Mary Allen Other [employer] Other Start: 10-01-2023 Postop follow up vis it related to original px Mary Allen [facility] Start: 09-16-2023 Non-patient / Non-visit MD Romeo Bradford II Work Phone: [facility] Work Phone: Start: 09-12-2023 (Prolonged) Prolonge d Services Prince Bradford II [facility] Start: 09-12-2023 End: 09-12-2023 ambulatory Prince Bradford II Other [employer] Other Start: 09-12-2023 Telephone encounter Prince Bradford II [facility] Start: 09-08-2023 End: 09-08-2023 ambulatory Prince Bradford II Other [employer] Other Start: 09-08-2023 Telephone encounter Prince Bradford II [facility] Start: 09-05-2023 Registered Recurring MD Prince Bradford II Work Phone: [facility] [place] Start: 09-04-2023 End: 09-04-2023 ambulatory DO Brooks Thomson Work Phone: [facility] Work Phone: Start: 09-04-2023 End: 09-04-2023 Patient encounter procedure DO Brooks Thomson Work Phone: [facility] Work Phone: Start: 09-03-2023 Office outpatient vi sit 40 minutes Prince Bradford II [facility] Start: 09-03-2023 Telephone encounter Prince Bradford II [facility] Start: 09-03-2023 End: 09-03-2023 ambulatory DO Brooks Thomson Work Phone: [facility] Work Phone: Start: 09-03-2023 End: 09-03-2023 Patient encounter procedure DO Brooks Thomson Work Phone: [facility] Start: 08-15-2023 Office outpatient ne w 45 minutes Prince Bradford II [facility] Start: 08-15-2023 End: 08-15-2023 ambulatory Prince Bradford II Other [employer] Other Start: 08-15-2023 End: 08-15-2023 Patient encounter procedure MD Prince Bradford II Work Phone: [facility] Start: 08-04-2023 End: 08-04-2023 ambulatory FLORIAN VALDEZ Not Available Start: 09-09-2022 End: 09-10-[address] BROOKS THOMSON Facility:[facility] Start: 05-10-2022 End: 05-11-[address] BROOKS THOMSON Facility:[facility] Start: 02-07-2022 End: 02-08-[address] BROOKS THOMSON Facility:[facility] Start: 02-04-2017 End: 02-05-2017 Ambulatory ANAM COVINGTON Facility:[facility] Procedures Date Procedure Procedure Detail Performing Clinician Start: 11-11-2024 X-ray of right knee, three views Brooks Thomson DO Work Phone: Start: 09-08-2024 X-ray of right knee, two views Brooks Thomson DO Work Phone: Start: 12-10-2023 Plain X-ray of right femur DO Brooks Ho use Work Phone: Start: 12-10-2023 X-ray of right knee DO Brooks Thomson Work Phone: Start: 12-10-2023 Plain X-ray of right tibia and right fibula DO Brooks Thomson Work Phone: Start: 10-29-2023 X-ray of right knee MD Prince Johnston Work Phone: Start: 09-03-2023 Methicillin resistant Staphylococcus aureus culture MD Prince Bradford II Work Phone: Start: 09-03-2023 Plain X-ray of right femur DO Brooks Ho use Work Phone: Start: 09-03-2023 Plain X-ray of right tibia and right fibula DO Brooks Thomson Work Phone: Start: 08-15-2023 X-ray of right knee MD Prince Johnston Work Phone: H/O: artificial joint Aftercare following joint replacement MD Prince Bradford II Work Phone: Plan of Treatment Date Care Activity Detail Author Start: 11-11-2024 X-ray of right knee, three views XR knee RT 3V - NOT FOR ER USE [facility] Start: 11-11-2024 XR Knee - right 3 Views [facility] Start: 09-08-2024 X-ray of right knee, two views XR knee RT 2V [facility] Start: 09-08-2024 XR Knee - right 2 Views [facility] Start: 12-10-2023 Plain X-ray of right femur XR femur RT 2V* [facility] Start: 12-10-2023 X-ray of right knee XR knee RT 2V [facility] Start: 12-10-2023 XR Femur - right 2 Views [facility] Start: 12-10-2023 XR Knee - right 2 Views [facility] Start: 12-10-2023 Plain X-ray of right tibia and right fibula XR tibia fibula RT 2V* [facility] Start: 12-10-2023 XR Tibia and Fibula - right 2 Views [facility] Start: 09-18-2023 [facility] Start: 09-16-2023 Referral to rehabili tation physician [facility] Start: 09-16-2023 Referral to clinical vegetable grader [facility] Start: 09-16-2023 Hospital admission [facility] Start: 09-16-2023 [facility] Start: 09-04-2023 [facility] Start: 09-03-2023 Methicillin resistan t Staphylococcus aureus culture MRSA Culture [facility] Start: 09-03-2023 MRSA Culture MRSA Culture [facility] Cotinine [Mass/volum e] in Serum or Plasma [facility] Fungus identified in Unspecified specimen by Culture [facility] Methicillin resistan t Staphylococcus aureus [Presence] in Unspecified specimen by Organism specific culture [facility] Nicotine [Mass/volum e] in Serum or Plasma [facility] Patient Education [address] Therapy [facility] Work Phone: Patient referral [facility] Work Phone: Immunizations Immunization Date Immunization Notes Care Provider Margie weinstein 07-08-2023 COVID-19 (MODERNA) 12Y and older DO Brooks House Work Phone: [facility] 07-02-2022 COVID-19 mRNA Bivale nt Booster (Moderna) DO Brooks Bethesda Work Phone: [facility] 07-31-2021 COVID-19 mRNA-1273 (Moderna) DO [facility] Work Phone: [facility] 12-09-2020 COVID-19 mRNA-1273 (Moderna) DO Brooks Thomson Work Phone: [facility] 11-11-2020 COVID-19 mRNA-1273 (Moderna) DO Brooks Thomson Work Phone: [facility] Payers Date Payer Category Payer Self-pay 1960 Unknown [id number] 1960 Unknown [id number] 2.16.84 [id number] 1959 Unknown [id number] 2.16.84 [id number] 1959 Unknown [id number] 2.16.84 [id number] 1959 Unknown [id number] 2.16.84 [id number] 1959 Unknown [id number] 2.16.84 [id number] 1959 Unknown [id number] 2.16.840 .[id number] 1959 Unknown [id number] 2.16.8 [id number] 1959 Unknown [id number] 2.16.8 [id number] 1959 Unknown [id number] 2.16.8 [id number] 1959 Unknown [id number] 2.16.8 [id number] 1959 Unknown [id number] 2.16.8 [id number] Medicare Medicare [id number] Unknown [id number] 2.16.8 [id number] Unknown [id number] 2.16.8 [id number] Unknown [id number] 2.16.8 [id number] Unknown [id number] 2.16.8 [id number] Social History Date Type Detail Facility Unknown if ever smoked [employer] Other Start: 09-01-1966 End: 09-01-2013 Sex Assigned At [employer] Other Start: 1960 Sex Assigned At Female [facility] Start: 09-04-2023 End: 09-16-2023 Tobacco smoking status NHIS Ex-smoker (finding) [facility] Start: 09-08-2024 End: 11-12-2024 Sex Female (finding) [facility] Medical Equipment Procedure Code Equipment Code Equipment Origin al Text Equipment Identifier Dates Revision total knee arthroplasty Orthopaedic cement, non-medicated ()[id number] FDA Start: 09-16-2023 Revision total knee arthroplasty Knee arthroplasty wedge ()[id number] FDA Start: 09-16-2023 Revision total knee arthroplasty Uncoated knee femur prosthesis, metallic ()[id number] FDA Start: 09-16-2023 Revision total knee arthroplasty Uncoated knee tibia prosthesis, metallic ()[id number] FDA Start: 09-16-2023 Revision total knee arthroplasty Knee femur stem prosthesis ()[id number] FDA Start: 09-16-2023 Revision total knee arthroplasty Knee femur stem prosthesis ()[id number] FDA Start: 09-16-2023 Revision total knee arthroplasty Tibial insert ()[id number] FDA Start: 09-16-2023 Revision total knee arthroplasty Knee arthroplasty wedge ()[id number] FDA Start: 09-16-2023 Revision total knee arthroplasty Knee arthroplasty wedge ()[id number] FDA Start: 09-16-2023 Clinical Notes 05-10-2022 to 05-03-2025 Note Date & Type Note Facility 05-03-2025 Note Entered by KP THOMSON DO on May 03, 2025 07:41:33 EDT From: BROOKS THOMSON DO To: [facility]/pharmacy #[id number] Sent: 05/03/2025 07:41:33 EDT Subject: Medication Management Submitted: Complete:diclofenac (diclofenac sodium 75 mg oral delayed release tablet) Signed by BROOKS THOMSON DO 05/03/2025 07:41:00 EDT Approved with modifications: diclofenac (DICLOFENAC SOD EC 75 MG TAB) TAKE 1 TABLET BY MOUTH TWICE A DAY Qty: 60 tab(s) Days Supply: 30 Refills: 5 Substitutions [id number] To: BROOKS THOMSON DO Sent: May 02, 2025 11:27:46 PM CDT Subject: Medication Management Due: May 03, 2025 12:02:36 AM CDT On Hold Pending Signature Dispensed Drug: diclofenac (diclofenac sodium 75 mg oral delayed release tablet), TAKE 1 TABLET BY MOUTH TWICE A DAY Quantity: 60 tab(s) Days Supply: 30 Refills: 5 Substitutions Allowed Notes from Pharmacy: [facility] 04-17-2025 Note Entered by KP THOMSON DO on April 17, 2025 09:25:30 EDT From: BROOKS THOMSON DO [id number] Sent: 04/17/2025 09:25:30 EDT Subject: Medication Management Submitted: Complete:levothyroxine (levothyroxine 100 mcg (0.1 mg) oral tablet) Signed by BROOKS THOMSON DO 04/17/2025 09:25:00 EDT Approved with modifications: levothyroxine (LEVOTHYROXINE 88 MCG TABLET) TAKE 1 TABLET BY MOUTH ON FRIDAY, FRIDAY & FRIDAY Qty: 36 tab(s) Days Supply: 84 Refills: 5 Substitutions [id number] [id number] To: BROOKS THOMSON DO Sent: April 16, 2025 11:41:30 PM CDT Subject: Medication Management Due: April 17, 2025 12:25:07 AM CDT On Hold Pending Signature Dispensed Drug: levothyroxine (levothyroxine 88 mcg (0.088 mg) oral tablet), TAKE 1 TABLET BY MOUTH ON FRIDAY, FRIDAY & FRIDAY Quantity: 36 tab(s) Days Supply: 84 Refills: 4 Substitutions Allowed Notes from Pharmacy: [facility] 04-10-2025 Note Entered by KP THOMSON DO on April 10, 2025 17:16:19 EDT From: BROOKS THOMSON DO To: [facility]/pharmacy #[id number] Sent: 04/10/2025 17:16:19 EDT Subject: Medication Management Submitted: Complete:cyclobenzaprine (cyclobenzaprine 5 mg oral tablet) Signed by BROOKS THOMSON DO 04/10/2025 17:16:00 EDT Approved with modifications: cyclobenzaprine (CYCLOBENZAPRINE 5 MG TABLET) TAKE 1 TABLET BY MOUTH TWICE A DAY Qty: 60 tab(s) Days Supply: 30 Refills: 5 Substitutions Allowed Route To Pharmacy - [facility]/pharmacy #[id number] From: [facility]ORE [id number] To: BROOKS THOMSON DO Sent: April 09, 2025 12:12:21 AM CDT Subject: Medication Management Due: April 10, 2025 12:12:21 AM CDT On Hold Pending Signature Dispensed Drug: cyclobenzaprine (cyclobenzaprine 5 mg oral tablet), TAKE 1 TABLET BY MOUTH TWICE A DAY Quantity: 60 tab(s) Days Supply: 30 Refills: 1 Substitutions Allowed Notes from Pharmacy: [facility] 02-15-2025 Evaluation note Diagnosis Onset Date Resolution Left carpal tunnel syndrome acute February 15, 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, 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 Left carpal tunnel syndrome acute March 31, 2025 9:43am Palmar fibromatosis acute March 31, 2025 9:43am [facility] Work Phone: 1(923) 182-961606-16-2025 NoteEntered by BROOKS THOMSON DO on February 14, 2025 07:37:22 EDT From: BROOKS THOMSON DO To: [facility]/pharmacy #[id number] Sent: 02/14/2025 07:37:22 EDT Subject: Medication Management Submitted: Complete:metoprolol (Metoprolol Succinate ER 50 mg oral tablet, extended release) Signed by BROOKS THOMSON DO 02/14/2025 07:37:00 EDT Approved with modifications: metoprolol (METOPROLOL SUCC ER 50 MG TAB) TAKE 1 AND 1/2 TABLETS BY MOUTH EVERY DAY Qty: 135 tab(s) Days Supply: 90 Refills: 1 Substitutions Allowed Route To Pharmacy - [facility]/pharmacy #[id number] Patient matched by BROOKS THOMSON DO on 02/14/2025 07:37:01 EDT From: [id number] To: BROOKS THOMSON DO Sent: February 12, 2025 11:41:39 PM CDT Subject: Medication Management Due: February 13, 2025 12:20:41 AM CDT On Hold Pending Signature Dispensed Drug: metoprolol (Metoprolol Succinate ER 50 mg oral tablet, extended release), TAKE 1 AND 1/2 TABLETS BY MOUTH EVERY DAY Quantity: 135 tab(s) Days Supply: 90 Refills: 3 Substitutions [facility]owed [id number] Note Entered by BROOKS THOMSON DO on January 31, 2025 07:34:13 EDT From: BROOKS THOMSON DO To: [facility]/pharmacy #[id number] Sent: 01/31/2025 07:34:13 EDT Subject: Medication Management Submitted: Complete:levothyroxine (levothyroxine 100 mcg (0.1 mg) oral tablet) Signed by BROOKS THOMSON DO 01/31/2025 07:34:00 EDT Submitted: Complete:levothyroxine (levothyroxine 88 mcg (0.088 mg) oral tablet) Signed by BROOKS THOMSON DO 01/31/2025 07:34:00 EDT Approved with modifications: levothyroxine (LEVOTHYROXINE 100 MCG TABLET) TAKE 1 TABLET BY MOUTH ON FRIDAY,FRIDAY,FRIDAY,FRIDAY Qty: 48 tab(s) Days Supply: 84 Refills: 2 Substitutions Allowed Route To Pharmacy - [facility]/pharmacy #[id number] From: [employer] To: BROOKS THOMSON DO Sent: January 28, 2025 11:41:48 PM CDT Subject: Medication Management Due: January 29, 2025 12:07:55 AM CDT On Hold Pending Signature Dispensed Drug: levothyroxine (levothyroxine 100 mcg (0.1 mg) oral tablet), TAKE 1 TABLET BY MOUTH ON FRIDAY,FRIDAY,FRIDAY,FRIDAY Quantity: 48 tab(s) Days Supply: 84 Refills: 3 Substitutions Allowed [id number] Note Entered by BROOKS THOMSON DO on December 13, 2024 07:29:49 EDT From: BROOKS THOMSON DO To: [facility]/pharmacy #[id number] Sent: 12/13/2024 07:29:49 EDT Subject: Medication Management Submitted: Complete:hydrochlorothiazide-triamterene (hydrochlorothiazide-triamterene 25 mg- 37.5 mg oral tablet) Signed by BROOKS THOMSON DO 12/13/2024 07:29:00 EDT Approved with modifications: hydrochlorothiazide-triamterene (TRIAMTERENE-HCTZ 37.5-25 MG TB) TAKE 1 TABLET BY MOUTH EVERY DAY Qty: 90 tab(s) Days Supply: 90 Refills: 1 Substitutions Allowed Route To Pharmacy - [facility]/pharmacy #[id number] From: [place] [employer] [id number] To: BROOKS THOMSON DO Sent: December 11, 2024 11:40:02 PM CDT Subject: Medication Management Due: December 12, 2024 12:21:24 AM CDT On Hold Pending Signature Dispensed Drug: hydrochlorothiazide-triamterene (hydrochlorothiazide-triamterene 25 mg-37.5 mg oraltablet), TAKE 1 TABLET BY MOUTH EVERY DAY Quantity: 90 tab(s) Days Supply: 90 Refills: 1 Substitutions Allowed [id number] Note Entered by BROOKS THOMSON DO on November 10, 2024 07:29:19 EDT From: BROOKS THOMSON DO [id number]: 11/10/2024 07:29:19 EDT Subject: Medication Management Submitted: Complete:diclofenac (diclofenac sodium 75 mg oral delayed release tablet) Signed by BROOKS THOMSON DO 11/10/2024 07:29:00 EDT Approved with modifications: diclofenac (DICLOFENAC SOD EC 75 MG TAB) TAKE 1 TABLET BY MOUTH TWICE A DAY Qty: 60 tab(s) Days Supply: 30 Refills: 5 Substitutions Allowed Route To Pharmacy - [facility]/pharmacy #[id number] From: [facility] [id number] To: BROOKS THOMSON DO Sent: November 09, 2024 11:27:23 PM CDT Subject: Medication Management Due: November 10, 2024 12:03:01 AM CDT On Hold Pending Signature Dispensed Drug: diclofenac (diclofenac sodium 75 mg oral delayed release tablet), TAKE 1 TABLET BY MOUTH TWICE A DAY Quantity: 60 tab(s) Days Supply: 30 Refills: 2 Substitutions Allowed [id number] Evaluation note* Diagnosis Onset Date Resolution Status Admit Date Aftercare following joint replacement acute September 08 12:36pm Status post revision of tota l knee replacement acute September 08 12:36pm [facility] Work Phone: 1(218) 793-929301-08-2025 Evaluation note* Diagnosis Onset Date Resolution Status Admit Date Aftercare following joint replacement acute September 08 12:36pm Status post revision of tota l knee replacement acute September 08 12:36pm Aftercare following joint replacement acute November 03, 2024 11:03am Status post revision of tota l knee replacement acute November 03, 2024 11:03am [facility] Work Phone: 1(686) 771-594601-08-2025 Evaluation note* Diagnosis Onset Date Resolution Status Admit Date Aftercare following joint replacement acute September 08 12:36pm Status post revision of tota l knee replacement acute September 08 12:36pm Aftercare following joint replacement acute November 03, 2024 11:03am Status post revision of tota l knee replacement acute November 03, 2024 11:03am Aftercare following joint replacement acute November 11, 2024 10:50am Status post revision of tota l knee replacement acute November 11 10:50am [facility] Work Phone: 1(485) 640-564912-18-2024 NoteEntered by BROOKS THOMSON DO on August 18, 2024 07:28:35 EST From: BROOKS THOMSON DO To: [facility]/pharmacy #[id number] Sent: 08/18/2024 07:28:35 EST Subject: Medication Management Submitted: Complete:meloxicam (meloxicam 15 mg oral tablet) Signed by BROOKS THOMSON DO 08/18/2024 07:28:00 EST Approved with modifications: meloxicam (MELOXICAM 15 MG TABLET) TAKE 1 TABLET BY MOUTH EVERY DAY Qty: 30 tab(s) Days Supply: 30 Refills: 5 Substitutions Allowed Route To Pharmacy - [facility]/pharmacy #[id number] From: [place] [employer] To: BROOKS THOMSON DO Sent: August 17, 2024 11:46:21 PM [employer] Subject: Medication Management Due: August 18, 2024 12:07:38 AM [employer]A DEVELOPER On Hold Pending Signature Dispensed Drug: meloxicam (meloxicam 15 mg oral tablet), TAKE 1 TABLET BY MOUTH EVERY DAY Quantity: 30 tab(s) Days Supply: 30 Refills: 5 Substitutions Allowed [id number] Note Entered by BROOKS THOMSON DO on June 16, 2024 07:26:51 EDT From: BROOKS THOMSON DO To: [facility]/pharmacy #[id number] Sent: 06/16/2024 07:26:51 EDT Subject: Medication Management Submitted: Complete:hydrochlorothiazide-triamterene (hydrochlorothiazide-triamterene 25 mg- 37.5 mg oral tablet) Signed by BROOKS THOMSON DO 06/16/2024 07:26:00 EDT Approved with modifications: hydrochlorothiazide-triamterene (TRIAMTERENE-HCTZ 37.5-25 MG TB) TAKE 1 TABLET BY MOUTH EVERY DAY Qty: 90 tab(s) Days Supply: 90 Refills: 1 Substitutions Allowed Route To Pharmacy - [facility]/pharmacy #[id number] From: [place] [employer] To: BROOKS THOMSON DO Sent: June 15, 2024 11:43:03 PM CDT Subject: Medication Management Due: June 16, 2024 12:03:32 AM CDT On Hold Pending Signature Dispensed Drug: hydrochlorothiazide-triamterene (hydrochlorothiazide-triamterene 25 mg-37.5 mg oraltablet), TAKE 1 TABLET BY MOUTH EVERY DAY Quantity: 90 tab(s) Days Supply: 90 Refills: 0 Substitutions Allowed [id number] Evaluation note* Encounter Date Diagnosis Assessment Notes Treatment Notes Treatment Clinical Notes Sep, Aftercare following joint replacement surgery (ICD-10 - Z47.1) Patient is progressing well 2 weeks status post right total knee arthroplasty revision. Zipline removed and Steri-Strips placed. Patient may shower but should refrain from soaking in a hot tub bathtub or swimming pool. Patient to continue anticoagulation therapy as previously ordered by Dr. Bradford. Order provided for outpatient physical therapy. Patient asked if she could drive inform patient if she is able to move foot from gas to brake without difficulty and is not taking any pain medication then she is cleared for driving. Follow-up with Dr. Bradford in 4 weeks with x-ray of right knee. All questions and concerns addressed. Examination and assessment of this patient was performed by Mary Allen NP and patient will continue with the treatment plan per Dr. Bradford, who initiated this treatment plan. Dr. Bradford is present in the office today and providing supervision. Sep, Presence of right artificial knee joint (ICD-10 - Z96.651) [employer] Other 01-12-2024 Evaluation note* Encounter Date Diagnosis Assessment Notes Treatment Notes Treatment Clinical Notes Sep, Other [employer] ped[employer] 1. H and P date: 09/03/2023 2. Diagnosis: Right total knee aseptic loosening 3. Counseling: Patient received counseling at their history and physical. 4. Coordination of care: The patient was discussed at today's total joints meeting with anesthesia, OR staff, and implant reps in an effort to coordinate the patient's care during the perioperative period. The anesthesiologist was involved in discussions regarding the patient's pain management such as regional blocks, anesthesia plans the day of surgery such as general versus spinal, as well as a final review of lab work to ensure the patient could proceed with surgery safely. The trust manager was vital for surgery timing and scheduling purposes. The implant rep was also available for necessary discussions regarding preoperative templates that were created on preoperative x-rays to ensure the appropriate implants and sizes of implants would be available the day of surgery. The patient's discharge plan was also discussed and the final decision was confirmed. 5. Medication Changes: None 6. Lab Tests: The patient's screening tests including albumin levels, vitamin D levels, hemoglobin, hemoglobin A1c, cotinine serum level, and MRSA nasal cultures were all reviewed to ensure appropriate perioperative care can be performed. This included selection of perioperative antibiotics, surgical dressing, and any contact precautions that may need to be enacted. The patient's presurgical testing lab work was also reviewed. This included a CBC, BMP, UA, fructosamine, and a blood type and screen. This lab work was discussed with anesthesia during today's total joints meeting to ensure the patient could proceed with surgery safely. We will plan to do a repeat sodium the morning of surgery 7. Review of reports/records: The surgical clearance information provided by the patient's PCP and if deemed necessary, other specialists, was reviewed. Any recommendations made by these care providers were taken into consideration for the patient's perioperative and postoperative treatment plans. Prolonged services time spent: 32 minutes [employer] Other 01-08-2024 Evaluation note* Encounter Date Diagnosis Assessment Notes Treatment Notes Treatment Clinical Notes Sep, Age-related osteoporosis without current pathological fracture (ICD-10 - M81.0) [employer] Other 01-03-2024 Evaluation note* Encounter Date Diagnosis Assessment Notes Treatment Notes Treatment Clinical Notes Sep, Pain due to internal orthopedic prosthetic devices, implants and grafts, initial encounter (ICD-10 - T84.84XA) [employer] Other 01-03-2024 Evaluation note* Encounter Date Diagnosis Assessment Notes Treatment Notes Treatment Clinical Notes Sep, History of total right knee replacement (ICD-10 - Z96.651) Sep, Pain due to internal orthopedic prosthetic devices, implants and grafts, initial encounter (ICD-10 - T84.84XA) Sep, Presence of right artificial knee joint (ICD-10 - Z96.651) Sep, Age-related osteoporosis without current pathological fracture (ICD-10 - M81.0) Sep, Obesity, morbid, BMI 50 or higher (ICD-10 - E66.01) Sep, Other mcfp (current) drug therapy (ICD-10 - Z79.899) Sep, Other Aspiration Date : 08/15/2023 Alpha-defensin: Negative Synovial CRP: 1.0 Cell count with diff: 677 with 26.6% PMNs Neutrophil elastase: Negative Microbial ID panel: Negative Cultures: No growth x 7 days Lab collection date: 08/15/2023 WBC 3.9 ESR 31 CRP less than 0.5 D-Dimer 970 The results of these labs will determine the next step in treatment. We discussed the above results and taking her bone scan/x-rays into account, I explained to her that I think her knee components are loose but have undergone aseptic loosening. I explained that this is an identifiable mechanical problem and in my opinion I would recommend surgery to fix this problem with revision total knee replacement. We discussed the specific risks and benefits of the procedure including infection, blood loss requiring transfusion, blood clots, fracture, instability, injury to surrounding structures including blood vessels nerves tendons ligaments, and bone. We also discussed the overall expectations of revision knee replacement surgery and its outcomes. All the patient's questions and concerns were answered and addressed. Will work to get her set up for right total knee revision surgery as soon as possible. Will plan for her to stay the night and then determine if she would be a good candidate for acute inpatient rehab. 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 Patient does have stairs to get into her home. I think that she be an excellent inpatient candidate as well as acute inpatient rehab candidate. [employer] Other 12-15-2023 Evaluation note* Encounter Date Diagnosis Assessment Notes Treatment Notes Treatment Clinical Notes Aug, History of total right knee replacement (ICD-10 - Z96.651) Aug, Pain due to internal orthopedic prosthetic devices, implants and grafts, initial encounter (ICD-10 - T84.84XA) Aug, Presence of right artificial knee joint (ICD-10 - Z96.651) Aug, Other We had a long discussion today regarding her right knee presentation as well as x-rays/bone scan. I explained that the x-rays and bone scan suggest that the knee is loose especially in the distal femoral component but at this point we need to determine the etiology of that loosening. We discussed the concern for infection and a result we will order the following labs: WBC ESR CRP D-Dimer The results of these labs will determine the next step in treatment. We also did an aspiration of the right knee today under sterile conditions. Approximately 25 cc of a dark yellow appearing joint fluid was aspirated and will be sent for Synovasure testing. Patient tolerated this well. I will plan to check back with her in about 10 days when we have all of the lab work as well as the Synovasure findings to determine if this is septic versus aseptic loosening. [place] [employer] Other 09-09-2022 NotePROCEDURE: XR FOOT LT MIN 3 VIEWS HISTORY: Pain in left foot ; lateral foot pain for 6 months COMPARISON: None. FINDINGS: BONES:Calcaneal plantar spur. No fracture, dislocation, or bone lesion. Mild degenerative changes of the midfoot. SOFT TISSUES:No visible soft tissue swelling. EFFUSION:None visible. OTHER: Negative. IMPRESSION: 1. No acute bone abnormality. 2. Minimal degenerative changes. Electronically authenticated by: SCOOTER HO Date: 2022-05-10 16:13[facility] information [facility] Work Phone: Evaluation note* Diagnosis Onset Date Resolution Status Hypertension acute Hypothyroidism acute Status post revision of total replacement of right kne e [facility] Work Phone: Evaluation noteNo InformationNortNew [facility] [employer] Other Evaluation note* Diagnosis Onset Date Resolution Status Hypertension acute Hypothyroidism acute Aftercare following joint replacement acute Status post revision of total knee replacement [facility] Work Phone: Evaluation note* Diagnosis Onset Date Resolution Status Hypertension acute Hypothyroidism acute Aftercare following joint replacement acute Status post revision of total knee replacement acute Aftercare following joint replacement acute Status post revision of total knee replacement [facility] Work Phone: Evaluation note* Diagnosis Onset Date Resolution Status Admit Date Aftercare following joint replacement acute [place] [address], 202 5 12:36pm Status post revision of tota l knee replacement acute September 08 12:36pm [facility] Work Phone: History general Narrative - Reported* Type Description Date Medical History Hypothyroidism Medical History Arthritis Medical History irregular heart beat Surgical History both knees replaced Surgical History bilateral shoulder surgery [employer] Other Hospital Discharge instructions Additional Instructions Joint Replacement Discharge Instructions Your safety during your recovery process is important to us. Please seek immediate emergency care if you have sudden chest pain or shortness of breath. Additionally, please call our office at [phone] should any of the following occur: wound bleeding or an increase in bleeding, increased swelling, redness around the incision, fever over 101 F, excessive vomiting, nosebleeds, or bloody stool. Discharge Medications (scheduled) indicated with an X: ___X___ Senokot-S 8.6-50mg tablet. Take 2 tablets by mouth daily for 30 days or as long as you are taking a narcotic pain medication (tramadol, oxycodone, or morphine). Begin the day of surgery. X___ Miralax 17g packet. Drink 1 packet mixed with 8 ounces of water daily for 7 days. Begin the morning after surgery. Begin your home anticoagulation medication, the morning after surgery. Take as prescribed like you were before surgery. Ecotrin (coated aspirin) 81mg tablet by mouth twice daily for 35 days. Begin the morning after surgery. Protonix (pantoprazole) 20mg tablet by mouth daily for 35 days. Begin the morning after surgery. ___X___ Xarelto (rivaroxaban) 10mg table by mouth daily for 35 days. Begin the morning after surgery. Celebrex (celecoxib) 200mg tablet by mouth twice daily for 30 days. Take with food. Begin the morning after surgery. ___X___ Duricef (cefadroxil) 500mg tablet by mouth twice daily for 7 days. Take with food. Begin the morning after surgery. Bactrim-DS (sulfamethoxazole & trimethoprim) 800mg-160mg tablet by mouth twice daily for 7 days. Take with food. Begin the morning after surgery. Cleocin (clindamycin) 300mg tablet by mouth 3 times (every 8 hours) a day for 7 days. Take with food. Begin the morning after surgery. ____X__ Tylenol (acetaminophen) 500mg tablet. Take 2 tablets 3 times (every 8 hours) a day for 30 days. Begin the night of surgery if necessary. ____X__ Prednisone 10mg tablet. Take 1 tablet daily for 10 days. Begin the morning after surgery. *If you have a patch behind your ear remove it the morning after surgery, discard, and thoroughly wash your hands. Discharge Medications (as needed) indicated with an X: Zofran (Ondansetron) 8mg tablet by mouth 3 times (every 8 hours) a day as needed for nausea. Begin the night of surgery if necessary. ___X___ Tramadol (Ultram) 50mg tablet. Take 1 tablet by mouth every 6 hours as needed for pain. Do not take at the same time as oxycodone, MS Contin (morphine extended release), or Dilaudid (hydromorphone). Take with food. Begin the night of surgery. Take around the clock for 24 hours after surgery and then utilize if necessary. ____X__ Oxycodone 5mg tablet. Take 1 tablet by mouth every 4 hours as needed for pain. If pain unrelenting 30 minutes after taking 1 tablet, then take another 1 tablet. Do not take at the same time as MS Contin (morphine extended release), Dilaudid (hydromorphone), or Tramadol (Ultram). Take with food. Begin the night of surgery. Take around the clock for 24 hours after surgery and then utilize if necessary. MS Contin (morphine extended release) 15mg tablet. Take 1 tablet by mouth every 12 hours as needed for BREAKTHROUGH pain only. If pain unrelenting 30 minutes after you have taken the second oxycodone 5mg tablet, then take 1 MS Contin tablet. Do not take at the same time as oxycodone or Tramadol (Ultram); this is a time-released medication and can only be taken once every 12 hours. Resume oxycodone at next scheduled time (4 hours after the MS Contin tablet). Begin the night of surgery if necessary. Dilaudid (hydromorphone) 2mg tablet. Take 1 tablet by mouth every 8 hours as needed for BREAKTHROUGH pain only. If pain unrelenting 30 minutes after oxycodone, then take 1 Dilaudid tablet. Do not take at the same time as oxycodone or Tramadol (Ultram). Resume oxycodone at next scheduled time (4 hours after the Dilaudid tablet). Begin the night of surgery if necessary. Discharge Instructions: BE SURE YOU HAVE READ THE BOOKLET YOU RECEIVED IN THE OFFICE. Home Health: Home health is a valuable partner in the joint replacement process; they will be your first step to your road of recovery. A therapist will see you the day after your surgery; they will be at your home before noon. They will see you the first three days after surgery and continue working with you until I see you in the office for your 2-week post-op appointment. Follow their instructions. Exercises are to be done several times a day, including the days the therapist does not come to your house! Wound Care: Your surgical incision may be covered with a few different dressings. Your home health physical therapist will remove the gauze dressing the first day after surgery, but they will leave one of the following in place until you see me in the office. Zipline This is a no contact dressing that will stay in place until you are seen in the office for your 2-week post-op appointment. Do not place any ointments, creams, or lotions on your wound. Avoid getting outside on hot days; excessive sweating can increase the risk of wound infection. If there is drainage, place a gauze dressing over the wound, secure with paper tape, and call your therapist. A small amount of drainage is expected. When you do bathe, allow soapy water to run over the dressing site, but do not scrub the incision or the dressing. Pat the dressing site dry with a towel after you shower. DO NOT take a bath, enter a pool, oneil/pond,or ocean until we discuss this at your post-op appointments. Aquacel This is a silver-impregnated dressing with antibiotic properties that will stay in place until you are seen in the office for your 2-week post-op appointment. Do not place any ointments, creams, or lotions around your wound or on the dressing. Avoid getting outside on hot days; excessive sweating can increase the risk of wound infection. If there is drainage, place a gauze dressing over the wound, secure with paper tape, and call your therapist. A small amount of drainage is expected. When you do bathe, allow soapy water to run over the dressing site, but do not scrub the incision or the dressing. Pat the dressing site dry with a towel after you shower. DO NOT take a bath, enter a pool, oneil pond, or ocean until we discuss this at your post-op appointments. Prevena This is a negative pressure wound therapy device with a collection container for any drainage. If this becomes completely full, call your therapist to discuss changing the collection container. This device also has a 14-day battery. Your home health physical therapist will remove the dressing 14 days after your surgery; it will be removed prior to your initial follow up appointment. Do not place any ointments, creams, or lotions around your wound or on the dressing. Avoid getting outside on hot days; excessive sweating can increase the risk of wound infection. When you do bathe, allow soapy water to run over the dressing site, but do not scrub the device or the surrounding skin. DO NOT get the device wet! Pat the dressing site dry with a towel after you shower. DO NOT take a bath, enter a pool, oneil/pond, or ocean until we discuss this at your post-op appointments. What to expect: SWELLING: Ice frequently, a minimum of 4 times a day for 20 minutes at a time for the first 2-3 weeks after surgery, especially after doing your exercises. While icing, elevate your foot above the level of your heart with several pillows under your ankle. DO NOT put pillows under your knee. (KNEE REPLACEMENT ONLY) Avoid prolonged periods of sitting over the first 7 to 10 days after surgery. We recommend that you not sit for more than 45 to 60 minutes at a time. You should get up and move around or lie down and elevate your leg. BRUISING: You will have bruising to some degree; possibly the thigh, calf, ankle, foot, and in some cases the genitalia. Do not be alarmed. The bruising will eventually go away on its own as the body reabsorbs the blood. BLISTERS: Some patients may develop blisters around the knee/hip and/or the incision. Although they can be alarming in appearance, they pose no significant risk to your joint replacement. Leave the blisters alone and allow them to heal on their own. NUMBNESS: Usually normal around the incision. For knee replacements, the outside of the knee may be involved as well. The area of numbness may shrink over time or it could last forever. For hip replacements, you may notice numbness on the outside of the thigh extending down the outside of the knee. The area of numbness may shrink over time or it could last forever. FRANCIS hose (stockinette): Wear them for 4 weeks on the operative side and 2 weeks on the nonoperative side. Try to wear these as 24/7 as possible to help decrease swelling. Weight Bearing, Walkers, and Canes: Do not remove your knee immobilizer. Do not walk without this until your therapist has removed it either on the first day after surgery or the second day after surgery. Do not attempt to walk without your walker and your healthcare consultant until the therapist checks you the following day after surgery and gives you further instruction. Typically, you will start out on a walker, then progress to a cane, and eventually walk without any device. Some of our patients do this within 2 weeks of surgery, while others can take 6 weeks. Pain Medications: You may experience significant pain. Our goal is to make your pain manageable (not absent, since this is usually not realistic) and to allow you to progress with your therapy for your hip or knee. Take your pain medication scheduled for the first 24 hours, then take it as needed. Always take your pain medication with food to decrease nausea and vomiting. Be sure to take stool softeners and/or laxatives as directed. You may take xzsc-gfr-shzbagj Benadryl if itching occurs without a rash or hives. Icing and elevation will help relieve pain as well, do not underestimate the power of ice and elevation. We do recommend that you stop taking narcotic pain medications by 4-6 weeks after surgery and if necessary, continue to use anti-inflammatory medications such as Mobic (meloxicam), Celebrex (celecoxib), or an xinz-sze-zztzmhd medication (Aleve, Motrin, Ibuprofen, etc). Driving an automobile: You must be off all narcotic pain medications. If your right leg is involved, that is your braking leg. Your physical therapist needs to help you determine that you can actively and firmly hit the brake and sustain it as this could be a life or situation for you or someone else. You will not be cleared to drive by me or anyone else. It is up to you to know when you feel safe to drive. We do recommend utilizing an empty parking lot to practice and ensure you are able to slam on the brakes if necessary during an emergency. Low Grade Fever (less than 101 F): Low-grade fevers can be treated, but make sure you do not exceed the daily limit of Tylenol. The daily limit on Tylenol (acetaminophen) is 3000 mg in a 24-hour period. If you have procedures done after your joint replacement: Dental procedures (including routine cleaning), prostate surgery, colonoscopy, and other invasive procedures could increase your risk for a total joint infection. During a postoperative visit, be sure to discuss the use of prophylactic antibiotic therapy prior to and sometimes after these invasive procedures. The decision to utilize antibiotics before and/or after these invasive procedures is a shared decision process between you and myself. Constipation: If you develop constipation in spite of taking stool softeners and/or laxatives, follow the protocol below: Day 2 of constipation if no results, use a Dulcolax suppository Day 3 of constipation if no results, use a fleet s enema. If no results by the afternoon, notify our office. Bladder Habits: If you have difficulty urinating or are unable to urinate within 12 hours after arriving home following your surgery, please notify our office immediately. Expectations for Pain Relief after Joint Replacement: Patients predictably improve for up to a year after a hip or knee replacement. It is normal for you to still have some pain in your hip or knee for as much as 3 to 9 months after surgery. The pain relief will come, but you should not expect great relief of pain in less than this time. High demand activities (such as going up and down stairs) frequently take 3 to 9 months before patients feel comfortable doing them. It is permissible to go up and down stairs whenever you can safely navigate them, but it will take much longer to do them normally and with great confidence. Questions or Problems: If you have any questions, problems, or confusion about your recovery after your hip or knee replacement, please feel free to call our office at [phone]. You are a priority of ours and we will not be upset with you if you call. We would much rather you call to confirm aspects of your recovery process as opposed to possibly hindering your recovery with inappropriate care. We are committed to providing you with the best care possible. Prince Bradford II, MD Updated 11/15/2022[facility] Work Phone: Reason for referral (narrative)No reason for referral information available[facility] Work Phone: Summary Purpose Family History No Family History Records Found Relationship Condition Age at Onset Recorded Date/T christo Not Specified Malignant neoplasm of ovary Unknown Hypertension Unknown father Malignant neoplasm of urinary bladder Unk nown Chronic obstructive pulmonary disease Unk nown brother Obstructive sleep apnea syndrome Unknown sister Obstructive sleep apnea syndrome Unknown Relationship Condition Age at Onset Recorded Date/T christo Not Specified Malignant neoplasm of ovary Unknown Hypertension Unknown father Malignant neoplasm of urinary bladder Unk nown Chronic obstructive pulmonary disease Unk nown brother Obstructive sleep apnea syndrome Unknown sister Obstructive sleep apnea syndrome Unknown father Unknown Not Specified Hypertension Unknown Malignant neoplasm Unknown Unknown Relationship Condition Age at Onset Recorded Date/T christo mother Malignant neoplasm of ovary Unknown Hypertension Unknown father Malignant neoplasm of urinary bladder Unk nown Chronic obstructive pulmonary disease Unk nown brother Obstructive sleep apnea syndrome Unknown sister Obstructive sleep apnea syndrome Unknown father Unknown mother Hypertension Unknown Malignant neoplasm Unknown Unknown Advance Directives No Advanced Directives Records Found Advance Directive Response Recorded Date/ Time Advance Directives No August 1:39pm Advance Directive Response Recorded Date/ Time Advance Directives No August 2:39pm Chief Complaint and Reason for Visit Chief Complaint Admit Date Z47.1 Z96.651 September 08, 2024 12 :10pm 1 YEAR FOLLOW UP September 08, 2024 12 :36pm Reason for Visit Admit Date Aftercare following joint replacement Donte kim 2024 12:36pm Status post revision of total knee repla cement September 08, 2024 12:36pm Chief Complaint z96.651 Z96.651 T84.84XA E66.01 M81.0 Z79.899 Chief Complaint z96.651 Z96.651 T84.84XA E66.01 M81.0 Z79.899 Right Knee Pain Chief Complaint z96.651 Z96.651 Z96.651 T84.84XA E66.01 M81.0 Z79.899 Right Knee Pain Revision RTK Pre Op Right Knee Pain Reason for Visit Hypertension Hypothyroidism Status post revision of total replacement of right knee Chief Complaint Right Knee Pain Z96.659 - Presence of unspecified artificial knee 4 WEEKS Reason for Visit Hypertension Hypothyroidism Aftercare following joint replacement Status post revision of total knee replacement Chief Complaint Right Knee Pain Z96.659 - Presence of unspecified artificial knee 4 WEEKS Z47.1 - Aftercare following joint replacement surg 6 weeks Reason for Visit Hypertension Hypothyroidism Aftercare following joint replacement Status post revision of total knee replacement Aftercare following joint replacement Status post revision of total knee replacement Chief Complaint Admit Date Z47.1 - Aftercare following joint replac ement surg September 08, 2024 12:10pm 1 YEAR FOLLOW UP September 08, 2024 12 :36pm Chief Complaint Admit Date Z47.1 Z96.651 September 08, 2024 12 :10pm 1 YEAR FOLLOW UP September 08, 2024 12 :36pm OP SP RTKA PAIN AND SWELLING November 03, 2024 11:03am Chief Complaint Admit Date Z47.1 Z96.651 September 08, 2024 12 :10pm 1 YEAR FOLLOW UP September 08, 2024 12 :36pm OP SP RTKA PAIN AND SWELLING November 03, 2024 11:03am Z96.651 Z47.1 November 03, 2024 11:4 2am Reason for Visit Admit Date Aftercare following joint replacement Donte kim 2024 12:36pm Status post revision of total knee repla cement September 08, 2024 12:36pm Aftercare following joint replacement [facility] 2024 11:03am Status post revision of total knee repla cement November 03, 2024 11:03am Chief Complaint Admit Date Z47.1 Z96.651 September 08, 2024 12 :10pm 1 YEAR FOLLOW UP September 08, 2024 12 :36pm OP SP RTKA PAIN AND SWELLING November 03, 2024 11:03am Z96.651 Z47.1 November 03, 2024 11:4 2am 1 WEEK November 11, 2024 10: 50am Z47.1 - Aftercare following joint replac ement surg November 11, 2024 10:54am Reason for Visit Admit Date Aftercare following joint replacement Donte kim 2024 12:36pm Status post revision of total knee repla cement September 08, 2024 12:36pm Aftercare following joint replacement [facility] 2024 11:03am Status post revision of total knee repla cement November 03, 2024 11:03am Aftercare following joint replacement [facility] 2024 10:50am Status post revision of total knee repla cement November 11, 2024 10:50am Chief Complaint Admit Date CONSULT DR. 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 Left carpal tunnel syndrome March 31 025 9:43am Palmar fibromatosis March 31, 2025 9:43 am Additional Source Comments INFORMATION SOURCE (unrecogn ized section and content) DATE CREATED AUTHOR 02/25/2018 [facility] DATE CREATED AUTHOR AUTHOR'S ORGANIZ ATION 09/12/2022 [facility] DATE CREATED AUTHOR AUTHOR'S ORGANIZ ATION 03/04/2024 [facility] EPIC DATE CREATED AUTHOR AUTHOR'S ORGANIZ ATION 11/14/2024 [facility] DATE CREATED AUTHOR AUTHOR'S ORGANIZ ATION 05/21/2025 [facility] REASON FOR VISIT (unrecogniz ed section and content) CONSULT DR AGUILLON RT TKA P AIN, CONCERN FOR PROSTHETIC LOOSENING WX NOMS, APPROVED PER [facility]post op medsRecheck Right KneeNo InformationNo Informationpre op/post op (inpatient)Recheck Right Knee Care Teams (unrecognized sec tion and content) Team Status: Active Member Role Status Dates Brooks Thomson DO Primary Care Provider Active Team Status: Inactive Member Role Status Dates Prince Bradford II, MD Attending Provider Active Start: September 08, 2024 End: September 08, 2024 Brooks Thomson DO Primary Care Provider Active Start: September 08, 2024 End: September 08, 2024 Team Status: Inactive Member Role Status Dates Brooks Thomson DO Primary Care Provider Active Start: September 08, 2024 End: September 08, 2024 Prince Bradford II, MD Attending Provider Active Start: September 08, 2024 End: September 08, 2024 Team Status: Active Member Role Status Dates Prince Bradford II, MD Admit Provider, Attending Provider, Other Provider Active Start: September 16, 2023 Brooks Thomson DO Primary Care Provider Active Start: September 16, 2023 Seema Issa RN Other Provider Active Star t: September 16, 2023 Carmita Jara RN Other Provider Active Start : September 16, 2023 Angelica Acevedo RN Other Provider Active Start: J anuary 2023 Galina Umaña RN Other Provider Active Star t: September 16, 2023 Yara Mesa RN Other Provider Active Start : September 16, 2023 Kellie Salazar RN Other Provider Active Start: J anuary 2023 Rigoberto Lea MD Other Provider Active Start: September 16, 2023 Neeta Lilly APRN Other Provider Active Start: September 16, 2023 Jarrell Acevedo DO Other Provider Active Start : September 16, 2023 Christos Conrad MD Other Provider Active Start : September 16, 2023 Mani Quevedo DO Other Provider Active Start: September 16, 2023 Archie Beasley MD Other Provider Active Start: September 16, 2023 Jolene Pedersen MD Other Provider Active Start : September 16, 2023 Carley Conway APRN Other Provider Active Start: September 16, 2023 Lizbet Jin MD Other Provider Active Start: September 16, 2023 Jeff Evans MD Other Provider Active Start: J anuary 2023 Thu Wright MD Other Provider Active Start: September 16, 2023 Andres Macias MD Other Provider Active Start: September 16, 2023 Kin Alberts DO Other Provider Active Start: September 16, 2023 Mohan Howard MD Other Provider Active Start: covel 2023 Min Kuo MD Other Provider Active Start: Sep Nieves Jaquez NP-C Other Provider Active St art: September 16, 2023 Shon Shin MD Other Provider Active Start: September 16, 2023 Tadeo Hernandez MD Other Provider Active Start: covel 2023 John Russ MD Other Provider Active Start: Sep Armaan Stovall MD Other Provider Active Start: anuary 2023 Heather Landry DO Other Provider Active Start: covel 2023 Jerry Barker , Other Provider Active Start : September 16, 2023 Manuel You , Other Provider Active Sta rt: September 16, 2023 Teresa Walker APRN Other Provider Active Start: September 16, 2023 Jamey Gil , Other Provider Active Start: September 16, 2023 Shant Kramer MD Other Provider Active Sta rt: September 16, 2023 Meagan Cheatham APRN Other Provider Active Start : September 16, 2023 Darline Renteria APRN Other Provider Active St art: September 16, 2023 Jennifer Munguia MD Other Provider Active Start: J anuary 2023 Darien Correia MD Other Provider Active S tart: September 16, 2023 Janet Collado , Other Provider Active Star t: September 16, 2023 Sofia Hilliard APRN Other Provider Active S tart: September 16, 2023 Kp Houser DO Other Provider Active Start: September 16, 2023 Amita Jerome RN Other Provider Active Start: J anuary 2023 Leonel Dinh MD Other Provider Active Start: J anuary 2023 Team Status: Inactive Member Role Status Dates Prince Bradford II, MD Attending Provider Active Start: October 29, 2023 End: October 29, 2023 Brooks Thomson DO Primary Care Provider Active Start: October 29, 2023 End: October 29, 2023 Team Status: Inactive Member Role Status Dates Brooks Thomson DO Primary Care Provider Active Start: October 29, 2023 End: October 29, 2023 Prince Bradford II, MD Attending Provider Active Start: October 29, 2023 End: October 29, 2023 Team Status: Inactive Member Role Status Dates Prince Bradford II, MD Attending Provider Active Team Status: Inactive Member Role Status Dates Brooks Thomson DO Primary Care Provider Active Prince Bradford II, MD Attending Provider Active Team Status: Inactive Member Role Status Dates Prince Bradford II, MD Attending Provider Active Brooks Thomson DO Primary Care Provider Active Team Status: Inactive Member Role Status Dates Prince Bradford II, MD Attending Provider Active Start: August 15, 2023 End: August 15, 2023 Team Status: Inactive Member Role Status Dates Prince Bradford II, MD Attending Provider Active Start: September 03, 2023 End: September 03, 2023 Team Status: Inactive Member Role Status Dates Brooks Thomson DO Primary Care Provider Active Start: September 03, 2023 End: September 03, 2023 Prince Bradford II, MD Attending Provider Active Start: September 03, 2023 End: September 03, 2023 Team Status: Inactive Member Role Status Dates Prince Bradford II, MD Attending Provider Active Start: September 04, 2023 End: September 04, 2023 Brooks Thomson DO Primary Care Provider Active Start: September 04, 2023 End: September 04, 2023 Team Status: Active Member Role Status Brodie Bradford II, MD Attending Provider Active Start: September 05, 2023 Brooks Thomson DO Primary Care Provider Active Start: September 05, 2023 Team Status: Active Member Role Status Dates Prince Bradford II, MD Attending Provider Active Start: December 10, 2023 Brooks Thomson DO Primary Care Provider Active Start: December 10, 2023 Team Status: Inactive Member Role Status Dates Brooks Thomson DO Primary Care Provider Active Start: December 10, 2023 End: December 10, 2023 Prince Bradford II, MD Attending Provider Active Start: December 10, 2023 End: December 10, 2023 Team Status: Inactive Member Role Status Brodie Bradford II, MD Attending Provider Active Start: December 10, 2023 End: December 10, 2023 Brooks Thomson DO Primary Care Provider Active Start: December 10, 2023 End: December 10, 2023 Team Status: Active Member Role Status Dates Prince Bradford II, MD Attending Provider Active Start: September 08, 2024 Brooks Thomson DO Primary Care Provider Active Start: September 08, 2024 Team Status: Inactive Member Role Status Dates Brooks Thomson DO Primary Care Provider Active Start: November 03, 2024 End: November 03, 2024 Prince Bradford II, MD Attending Provider Active Start: November 03, 2024 End: November 03, 2024 Team Status: Inactive Member Role Status Brodie Thomson DO Primary Care Provider Active Start: November 11, 2024 End: November 11, 2024 Prince Bradford II, MD Attending Provider Active Start: November 11, 2024 End: November 11, 2024 Team Status: Active Member Role Status Dates Prince Bradford II, MD Attending Provider Active Start: November 11, 2024 Brooks Thomson DO Primary Care Provider Active Start: November 11, 2024 Team Status: Inactive Member Role Status Dates Prince Bradford II, MD Attending Provider Active Start: November 11, 2024 End: November 11, 2024 Brooks Thomson DO Primary Care Provider Active Start: November 11, 2024 End: November 11, 2024 Team Status: Inactive Member Role Status Dates Brooks Thomson DO Primary Care Provider Active Start: February 15, 2025 End: February 15, 2025 Elaine Crook MD Attending Provider Active Start: February 15, 2025 End: February 15, 2025 Team Status: Inactive Member Role Status Brodie Thomson DO Primary Care Provider Active Start: March 31, 2025 End: March 31, 2025 Elaine Crook MD Attending Provider Active Start: March 31, 2025 End: March 31, 2025 Goals (unrecognized section and content) Goals may be documented in a n alternate section FOR RECORDS PERTAINING TO PATIENTS WHO ARE OR HAVE BEEN ENROLLED IN A CHEMICAL DEPENDENCY/SUBSTANCEABUSE PROGRAM, SOME INFORMATION MAY BE OMITTED. This clinical summary was aggregated from multiple sources. Caution should be exercised in using it in the provision of clinical care. This summary normalizes information from multiple sources, and as a consequence, information in this document may materially change the coding, format and clinical context of patient data. In addition, data may be omitted in some cases. CLINICAL DECISIONS SHOULD BE BASED ON THE PRIMARY CLINICAL RECORDS. [facility] [employer] provides no warranty or guarantee of the accuracy or completeness of information in this document.
--- NOTE | 2025-05-23 13:49 | XR_ITS ---
The [address] [address] Patient Name: JANET ELIAS MRN: [id number] date: 1960 Sex: F Assigned Patient Location: [facility] Current Patient Location: Accession/Order Number: [id number] Exam Date: 05/23/2025 13:55 Report Date: 05/24/2025 08:45 At the request of: NOHELIA THOMSON Procedure: XR lumbar spine min 4V LUMBAR SPINE -4 views: CLINICAL HISTORY: Left back pain for the past 4 months after lifting sandbags. COMPARISON: None AP, lateral and both oblique views of the lumbosacral junction were obtained. There is subtle dextroscoliotic curvature. There is no acute compression fracture. There is slight anterolisthesis of L4 and L5. There is multilevel disc space narrowing and endplate spurring, greater in the lower thoracic and upper lumbar region. There is vacuum phenomenon at L4-5. The lumbosacral disc space is maintained. Facet hypertrophy is seen, greater distally. The SI joints show mild sclerosis. There are no paraspinal soft tissue abnormalities. There is minor atherosclerotic plaque at the aorta. XR/XR lumbar spine min 4V IMPRESSION: SUBTLE SCOLIOSIS AND MULTILEVEL DEGENERATIVE CHANGES. NO DEFINITE ACUTE BONY FINDINGS. Impression dictated by: Gunjan Fletcher M.D. 05/24/2025 8:45 AM Dictation Location: [employer] Electronically authenticated by: [id number] Date: 05/24/2025 08:45
== END 2025-05-23 13:41 | disposition home or self-care (01) ==
PROVIDERS: PCP Family Medicine; Visit Provider Family Medicine
DX: M19.90 Unspecified osteoarthritis, unspecified site (principal); M54.50 Low back pain, unspecified; M51.369 Other intervertebral disc degeneration, lumbar region without mention of lumbar back pain or lower extremity pain
CPT/HCPCS: 72110

== ENCOUNTER 2025-05-31 16:43 | Emergency (ER) | payer MEDICARE, SELFPAY ==
[2025-05-31 16:55] VITALS: BP 152/81; PULSE 82; TEMP 36.6; O2SAT 97; BMI 38.1
--- NOTE | 2025-05-31 17:28 | ED_ITS ---
Documented by User: EMILY Pisano 06/01/25 10:11 HPI HPI - General Adult General Chief complaint: Extremity Injury, Lower Stated complaint: FELL ON RIGHT KNEE Time Seen by Provider: 05/31/25 17:13 Source: patient Mode of arrival: Wheelchair Limitations: no limitations History of Present Illness HPI narrative: Patient is a 64-year-old female that presents to the emergency department with complaints of right knee pain after a trip and fall onto her knee. She denies any head strike or LOC. She states that she was watching the baseball game and was in her bedroom and ended up tripping over a sheet when she tried to munguia to see the TV. She does not take AC/AP medications. She has had bilateral knee replacements originally with Dr. Hurtado in [place] and a revision on the right knee with Dr. Bradford 18 months ago. She last saw him in November for some increased pain. She states she did hurt her right great toe but the pain is not that bad. She is walking with a cane but does not normally use one. She was able to get up and bear weight through the leg. Related Data Home Medications ?Medication ?Instructions ?Recorded ?Confirmed levothyroxine 88 mcg tablet mcg 06/27/23 meloxicam 15 mg tablet mg 06/27/23 metoprolol succinate 50 mg mg PO 06/27/23 tablet,extended release 24 hr Previous Rx's ?Medication ?Instructions ?Recorded hydrocodone 5 mg-acetaminophen 325 1 tab PO Q6H PRN pa in #12 tabs 06/27/23 mg tablet methylprednisolone 4 mg tablets in See Rx Instructions .Route 06/27/23 a dose pack (Medrol (Shane)) .COMPLEX #21 ea Allergies Allergy/AdvReac Type Severity Reaction Status Date / Time sulfamethoxazole (From Allergy Rash Verified 06/27/23 20:46 Bactrim) trimethoprim (From Bactrim) Allergy Rash Verified 06/27/23 20:46 Opioid HPI Opioid Management Most Recent Opioid Data: Last Pain Scale 3 05/31/25, 17:12 Review of Systems ROS Status of ROS 10 or more systems reviewed and unremark able except as noted in history and below PFSH PFSH Social History Smoking status: Former smoker Little interest or pleasure in doing things: not at all Feeling down, depressed, or hopeless: not at all Exam Narrative Exam Narrative: General: No distress, age-appropriate Skin: Warm, dry, no pallor. No rash. Head: Normocephalic, atraumatic. Neck: Supple, non-tender. Eye: Pupils are equal, round and EOMI. No scleral icterus. Ears, Nose, Mouth, and Throat: No nasal mucosal hypertrophy. Oral mucosa is moist, no posterior oropharynx erythema, uvula is mid-line Cardiovascular: Regular Rate and Rhythm without murmur, gallop or rub. Respiratory: No accessory muscle use or respiratory distress. Lungs are clear to auscultation, no wheezing, rales or rhonchi Chest Wall: no tenderness Back: No midline thoracic or lumbar vertebral tenderness. Musculoskeletal: Full ROM of all extremities, except right knee, 0?90 actively. Diffusely tender, minimal swelling. No erythema. Well-healed midline scars bilateral knees. No calf or popliteal tenderness. GI: Abdomen is soft, non-distended, non tender to palpation. No masses appreciated. No rebound, guarding, or rigidity noted. Neurological: A&O x4. No cranial nerve dysfunction observed. No truncal ataxia. Moves all extremities. Sensation intact. Psychiatric: Cooperative and interactive. Normal mood and affect. Constitutional Vital Signs, click to edit/add: Last Vital Signs Temp 97.8 F 05/31/25 16:55 Pulse 82 05/31/25 16:55 Resp 20 05/31/25 16:55 BP 152/81 H 05/31/25 16:55 Pulse Ox 97 05/31/25 16:55 O2 Del Method Room Air 05/31/25 16:55 Documenting provider has reviewed patient's vital signs: yes Course Vital Signs Vital signs: Vital Signs Temperature 97.8 F 05/31/25 16:55 Pulse Rate 82 05/31/25 16:55 Respiratory Rate 20 05/31/25 16:55 Blood Pressure 152/81 H 05/31/25 16:55 Pulse Oximetry 97 05/31/25 16:55 Oxygen Delivery Method Room Air 05/31/25 16:55 Temperature 97.8 F 05/31/25 16:55 Pulse Rate 82 05/31/25 16:55 Respiratory Rate 20 05/31/25 16:55 Blood Pressure 152/81 H 05/31/25 16:55 Pulse Oximetry 97 05/31/25 16:55 Oxygen Delivery Method Room Air 05/31/25 16:55 Medical Decision Making MDM Narrative Medical decision making narrative: This is a 64-year-old female that presents with right knee pain after a trip and fall onto the right knee. Past surgical history of bilateral total knee replacements with Dr. Genesis gomes. She had a right knee revision with Dr. Bradford about 18 months ago. She was able to bear weight with a cane after the fall. On arrival patient appears comfortable sitting up on the ED cart, there is an ice pack on her right knee. There is no erythema to the right knee, mild swelling. Well-healed midline scar. Vitals are stable on arrival. X-ray right knee ordered. X-ray right knee reviewed by myself and radiological read as follows: No acute findings no hardware complication. I discussed this with patient and plan to discharge home and she is agreeable. She can bear weight as tolerated with her cane or walker. We discussed ice, elevation, and Tylenol for pain, she cannot take IBU. All questions answered and vitals remained stable during her ED course. Patients pain controlled. Patient discharged with plan for follow up wit h her ortho surgeon Dr Bradford. ATTENDING ADDENDUM: Dr. Cabrera Patient seen and evaluated at bedside with midlevel provider. Agree with plan. Differential Diagnosis Differential Diagnosis: Hardware malfunction total joint, femur or tibia fracture Imaging Data Right Knee X-Ray: Attestation: I have reviewed the pertinent imaging results. Radiologist's impression: ITS Impressions Knee X-Ray 05/31/25 17:32 IMPRESSION: No acute findings no hardware complication. Impression dictated by: Noé Beck M.D. 05/31/2025 6:04 PM Dictation Location: [facility] Electronically authenticated by: [id number] Y Date: 05/31/2025 18:04 Discharge Plan Discharge Chief Complaint: Extremity Injury, Lower Clinical Impression: Acute pain of right knee Patient Disposition: Home, Self-Care Time of Disposition Decision: 18:13 Condition: Good Mode of Transportation: Private Vehicle Prescriptions / Home Meds: No Action metoprolol succinate 50 mg tablet extended release 24 hr PO meloxicam 15 mg tablet levothyroxine 88 mcg tablet hydrocodone-acetaminophen 5-325 mg tablet 1 tab PO Q6H PRN (Reason: pain) Qty: 12 0RF Rx Instructions: DX: M25.561 methylprednisolone [Medrol (Shane)] 4 mg tablets,dose pack See Rx Instructions .ROUTE .COMPLEX Qty: 21 0RF Rx Instructions: Taper as directed Print Language: Kuwaiti Instructions: Knee Pain (ED) Referrals: NOHELIA THOMSON [Primary Care Provider, Family Practice] - 1 week Prince Bradford MD [Physician, Orthopedics] - 1 week Discharge Date/Time: 05/31/25 18:29 Documented by User: Timothy Cabrera, 05/31/25 18:56 HPI HPI - General Adult General Chief complaint: Extremity Injury, Lower Stated complaint: FELL ON RIGHT KNEE Time Seen by Provider: 05/31/25 17:13 Related Data Home Medications ?Medication ?Instructions ?Recorded ?Confirmed levothyroxine 88 mcg tablet mcg 06/27/23 meloxicam 15 mg tablet mg 06/27/23 metoprolol succinate 50 mg mg PO 06/27/23 tablet,extended release 24 hr Previous Rx's ?Medication ?Instructions ?Recorded hydrocodone 5 mg-acetaminophen 325 1 tab PO Q6H PRN pa in #12 tabs 06/27/23 mg tablet methylprednisolone 4 mg tablets in See Rx Instructions .Route 06/27/23 a dose pack (Medrol (Shane)) .COMPLEX #21 ea Allergies Allergy/AdvReac Type Severity Reaction Status Date / Time sulfamethoxazole (From Allergy Rash Verified 06/27/23 20:46 Bactrim) trimethoprim (From Bactrim) Allergy Rash Verified 06/27/23 20:46 Opioid HPI Opioid Management Most Recent Opioid Data: Last Pain Scale 3 05/31/25, 17:12 PFSH PFSH Social History Smoking status: Former smoker Little interest or pleasure in doing things: not at all Feeling down, depressed, or hopeless: not at all Exam Constitutional Vital Signs, click to edit/add: Last Vital Signs Temp 97.8 F 05/31/25 16:55 Pulse 82 05/31/25 16:55 Resp 20 05/31/25 16:55 BP 152/81 H 05/31/25 16:55 Pulse Ox 97 05/31/25 16:55 O2 Del Method Room Air 05/31/25 16:55 Course Vital Signs Vital signs: Vital Signs Temperature 97.8 F 05/31/25 16:55 Pulse Rate 82 05/31/25 16:55 Respiratory Rate 20 05/31/25 16:55 Blood Pressure 152/81 H 05/31/25 16:55 Pulse Oximetry 97 05/31/25 16:55 Oxygen Delivery Method Room Air 05/31/25 16:55 Temperature 97.8 F 05/31/25 16:55 Pulse Rate 82 05/31/25 16:55 Respiratory Rate 20 05/31/25 16:55 Blood Pressure 152/81 H 05/31/25 16:55 Pulse Oximetry 97 05/31/25 16:55 Oxygen Delivery Method Room Air 05/31/25 16:55 Medical Decision Making MDM Narrative Medical decision making narrative: This is a 64-year-old female that presents with right knee pain after a trip and fall onto the right knee. Past surgical history of bilateral total knee replacements with Dr. Genesis gomes. She had a right knee revision with Dr. Bradford about 18 months ago. She was able to bear weight with a cane after the fall. On arrival patient appears comfortable sitting up on the ED cart, there is an ice pack on her right knee. There is no erythema to the right knee, mild swelling. Well-healed midline scar. Vitals are stable on arrival. X-ray right knee ordered. ATTENDING ADDENDUM: Dr. Cabrera Patient seen and evaluated at bedside with midlevel provider. Agree with plan. Imaging Data Right Knee X-Ray: Radiologist's impression: ITS Impressions Knee X-Ray 05/31/25 17:32 IMPRESSION: No acute findings no hardware complication. Impression dictated by: Noé Beck M.D. 05/31/2025 6:04 PM Dictation Location: [place] [address] Electronically authenticated by: [id number] Y Date: 05/31/2025 18:04 Discharge Plan Discharge Chief Complaint: Extremity Injury, Lower Clinical Impression: Acute pain of right knee Patient Disposition: Home, Self-Care Time of Disposition Decision: 18:13 Condition: Good Mode of Transportation: Private Vehicle Prescriptions / Home Meds: No Action metoprolol succinate 50 mg tablet extended release 24 hr PO meloxicam 15 mg tablet levothyroxine 88 mcg tablet hydrocodone-acetaminophen 5-325 mg tablet 1 tab PO Q6H PRN (Reason: pain) Qty: 12 0RF Rx Instructions: DX: M25.561 methylprednisolone [Medrol (Shane)] 4 mg tablets,dose pack See Rx Instructions .ROUTE .COMPLEX Qty: 21 0RF Rx Instructions: Taper as directed Print Language: Kuwaiti Instructions: Knee Pain (ED) Referrals: NOHELIA THOMSON [Primary Care Provider, Family Practice] - 1 week Prince Bradford MD [Physician, Orthopedics] - 1 week Discharge Date/Time: 05/31/25 18:29
--- NOTE | 2025-05-31 17:32 | XR_ITS ---
[facility] [place] [id number] Patient Name: JANET ELIAS MRN: [id number] date: 1960 Sex: F Assigned Patient Location: ER Current Patient Location: ED.MAIN Accession/Order Number: [id number] Exam Date: 05/31/2025 17:25 Report Date: 05/31/2025 18:04 At the request of: ZURI DIAZ Procedure: XR knee RT 3V 3 views right knee plain film COMPARISON: 06/27/2023 HISTORY: Right knee pain. Fell. ACUTE FINDINGS: No acute findings DEGENERATIVE CHANGE: Unremarkable SOFT TISSUE FINDINGS: Unremarkable JOINT EFFUSION: None POSTOP CHANGES: Right knee arthroplasty. No hardware complication. BONE MINERALIZATION: Adequate XR/XR knee RT 3V IMPRESSION: No acute findings no hardware complication. Impression dictated by: Noé Beck M.D. 05/31/2025 6:04 PM Dictation Location: [place] [address] Electronically authenticated by: [id number] Y Date: 05/31/2025 18:04
--- OUTSIDE RECORDS SUMMARY | 2025-05-31 18:01 | XMS_ITS | Encounter Summary ---
Author Organization [facility] Address [address] [place] [address] Care Team Providers Care Instrumentation Specialist Name Role Phone Brooks Rodarte MD Primary Care Provider [phone] Encounter Details Date Type Department Care Team (Late st Contact Info) Description 12/30/2016 Abstract [facility] [address] [place] [address] Leila Wheeler, [facility] [address] [place] [address] Social History Tobacco Use Types Packs/Day Years [...] on filedocumented in this encounter Care Teams Instrumentation Specialist Relationship Specialty Start Date End Date Brooks Rodarte MD [address] [place] [address] PCP - General Family Medicine 07/04/23 documented as of this encounter
--- OUTSIDE RECORDS SUMMARY | 2025-05-31 18:01 | XMS_ITS | Clinical Summary ---
Author Organization [id number] [address] [place] [address] Care Team Providers Care Skein Tier Name Role Phone Brooks Rodarte DO Primary Care Provider [phone] Immunizations Immunization Administration Dates Next Due Covid-19,mrna, [...] 07/02/2022 Medical Devices Not on file Insurance [facility] MEDICARE Care Teams Skein Tier Relationship Specialty Start Date End Date Brooks Rodarte DO PCP - General Family Medicine 07/11/23
--- OUTSIDE RECORDS SUMMARY | 2025-05-31 18:01 | XMS_ITS | Encounter Summary ---
Author Organization [facility] Address [address] [place] [address] Care Team Providers Care Professional Athlete Name Role Phone Brooks Rodarte MD Primary Care Provider [phone] Encounter Details Date Type Department Care Team (Late st Contact Info) Description 05/20/2016 Abstract [facility] [address] [place] [address] Leila Wheeler, [facility] [address] [place] [address] Social History Tobacco Use Types Packs/Day Years [...] on filedocumented in this encounter Care Teams Professional Athlete Relationship Specialty Start Date End Date Brooks Rodarte MD [address] [place] [address] PCP - General Family Medicine 07/04/23 documented as of this encounter
--- OUTSIDE RECORDS SUMMARY | 2025-05-31 18:01 | XMS_ITS | Encounter Summary ---
Author Organization [facility] Address [address] [place] [address] Care Team Providers Care Smoke Jumper Supervisor Name Role Phone Brooks Rodarte MD Primary Care Provider [phone] Encounter Details Date Type Department Care Team (Late st Contact Info) Description 10/29/2016 Abstract [facility] [address] [place] [address] Leila Wheeler, [facility] [address] [place] [address] Social History Tobacco Use Types Packs/Day Years [...] on filedocumented in this encounter Care Teams Smoke Jumper Supervisor Relationship Specialty Start Date End Date Brooks Rodarte MD [address] [place] [address] PCP - General Family Medicine 07/04/23 documented as of this encounter
--- OUTSIDE RECORDS SUMMARY | 2025-05-31 18:01 | XMS_ITS | Encounter Summary ---
Author Organization [facility] Address [address] [place] [address] Care Team Providers Care Security Management Specialist Name Role Phone Brooks Rodarte MD Primary Care Provider [phone] Encounter Details Date Type Department Care Team (Late st Contact Info) Description 01/04/2019 Abstract [facility] [address] [place] [address] Leila Wheeler, [facility] [address] [place] [address] Social History Tobacco Use Types Packs/Day Years [...] on filedocumented in this encounter Care Teams Security Management Specialist Relationship Specialty Start Date End Date Brooks Rodarte MD [address] [place] [address] PCP - General Family Medicine 07/04/23 documented as of this encounter
--- OUTSIDE RECORDS SUMMARY | 2025-05-31 18:01 | XMS_ITS | Encounter Summary ---
Author Organization [facility] Address [address] [place] [address] Care Team Providers Care Deputy Jailer Name Role Phone Brooks Rodarte MD Primary Care Provider [phone] Encounter Details Date Type Department Care Team (Late st Contact Info) Description 10/23/2016 Abstract [facility] [address] [place] [address] Leila Wheeler, [facility] [address] [place] [address] Social History Tobacco Use Types Packs/Day Years [...] on filedocumented in this encounter Care Teams Deputy Jailer Relationship Specialty Start Date End Date Brooks Rodarte MD [address] [place] [address] PCP - General Family Medicine 07/04/23 documented as of this encounter
--- OUTSIDE RECORDS SUMMARY | 2025-05-31 18:01 | XMS_ITS | Encounter Summary ---
Author Organization [facility] Address [address] [place] [address] Care Team Providers Care Try On Baster Name Role Phone Brooks Rodarte MD Primary Care Provider [phone] Encounter Details Date Type Department Care Team (Late st Contact Info) Description 12/30/2016 Abstract [facility] [address] [place] [address] Leila Wheeler, [facility] [address] [place] [address] Social History Tobacco Use Types Packs/Day Years [...] on filedocumented in this encounter Care Teams Try On Baster Relationship Specialty Start Date End Date Brooks Rodarte MD [address] [place] [address] PCP - General Family Medicine 07/04/23 documented as of this encounter
--- OUTSIDE RECORDS SUMMARY | 2025-05-31 18:01 | XMS_ITS | Encounter Summary ---
Author Organization [facility] Address [address] [place] [address] Care Team Providers Care Tutor Coordinator Name Role Phone Brooks Rodarte MD Primary Care Provider [phone] Encounter Details Date Type Department Care Team (Late st Contact Info) Description 01/24/2021 Abstract [facility] [address] [place] [address] Leila Wheeler, [facility] [address] [place] [address] Social History Tobacco Use Types Packs/Day Years [...] on filedocumented in this encounter Care Teams Tutor Coordinator Relationship Specialty Start Date End Date Brooks Rodarte MD [address] [facility] [place] [address] PCP - General Family Medicine 07/04/23 documented as of this encounter
--- OUTSIDE RECORDS SUMMARY | 2025-05-31 18:01 | XMS_ITS | Encounter Summary ---
Author Organization [facility] Address [address] [place] [address] Care Team Providers Care Farm Field Manager Name Role Phone Brooks Rodarte MD Primary Care Provider Encounter Details Date Type Department Care Team (Late st Contact Info) Description 12/02/2016 Abstract [facility] [address] [place] [address] Leila Wheeler, [facility] [address] [place] [address] Social History Tobacco Use Types Packs/Day Years [...] on filedocumented in this encounter Care Teams Farm Field Manager Relationship Specialty Start Date End Date Brooks Rodarte MD [address] [place] [address] PCP - General Family Medicine 07/04/23 documented as of this encounter
--- OUTSIDE RECORDS SUMMARY | 2025-05-31 18:01 | XMS_ITS | Encounter Summary ---
Author Organization [facility] Address [address] [place] [address] Care Team Providers Care Medical Asst Name Role Phone Brooks Rodarte MD Primary Care Provider [phone] Encounter Details Date Type Department Care Team (Late st Contact Info) Description 04/23/2016 Abstract [facility] [address] [place] [address] Leila Wheeler, [facility] [address] [place] [address] Social History Tobacco Use Types Packs/Day Years [...] filedocumented in this encounter Care Teams Medical Asst Relationship Specialty Start Date End Date Brooks Rodarte MD [address] [place] [address] PCP - General Family Medicine 07/04/23 documented as of this encounter
--- OUTSIDE RECORDS SUMMARY | 2025-05-31 18:01 | XMS_ITS | Clinical Summary ---
Author Organization [facility] Address [address] [place] [address] Care Team Providers Care Putty Worker Name Role Phone House, Brooks Betts MD Primary Care Provider [phone] Allergies Active Allergy Reactions Criticality Noted Date [...] 2025 07/08/2023, 2021 Insurance [employer] Care Teams Putty Worker Relationship Specialty Start Date End Date Brooks Rodarte MD [address] [place] [address] PCP - General Family Medicine 07/04/23
--- OUTSIDE RECORDS SUMMARY | 2025-05-31 18:01 | XMS_ITS | Encounter Summary ---
Author Organization [facility] Address [address] [place] [address] Care Team Providers Care Shop And Alteration Tailor Name Role Phone Brooks Rodarte MD Primary Care Provider Encounter Details Date Type Department Care Team (Late st Contact Info) Description 12/30/2016 [facility] [address] [place] [address] Leila Wheeler, [facility] [address] [place] [address] Social History Tobacco Use Types Packs/Day Years [...] on filedocumented in this encounter Care Teams Shop And Alteration Tailor Relationship Specialty Start Date End Date Brooks Rodarte MD [address] [place] [address] PCP - General Family Medicine 07/04/23 documented as of this encounter
--- OUTSIDE RECORDS SUMMARY | 2025-05-31 18:01 | XMS_ITS | Encounter Summary ---
Author Organization [facility] Address [address] [place] [address] Care Team Providers Care Swabber Name Role Phone Brooks Rodarte MD Primary Care Provider [phone] Encounter Details Date Type Department Care Team (Late st Contact Info) Description 03/26/2016 Abstract [facility] [address] [place] [address] Leila Wheeler, [facility] [address] [place] [address] Social History Tobacco Use Types Packs/Day Years [...] on filedocumented in this encounter Care Teams Swabber Relationship Specialty Start Date End Date Brooks Rodarte MD [address] [place] [address] PCP - General Family Medicine 07/04/23 documented as of this encounter
--- OUTSIDE RECORDS SUMMARY | 2025-05-31 18:01 | XMS_ITS | Encounter Summary ---
Author Organization [facility] Address [address] [place] [address] Care Team Providers Care Vp Packaging Name Role Phone Brooks Rodarte MD Primary Care Provider [phone] Encounter Details Date Type Department Care Team (Late st Contact Info) Description 11/28/2021 Abstract [facility] [address] [place] [address] Leila Wheeler, [facility] [address] [place] [address] Social History Tobacco Use Types Packs/Day Years [...] on filedocumented in this encounter Care Teams Vp Packaging Relationship Specialty Start Date End Date Brooks Rodarte MD [address] [place] [address] PCP - General Family Medicine 07/04/23 documented as of this encounter
--- OUTSIDE RECORDS SUMMARY | 2025-05-31 18:01 | XMS_ITS | Encounter Summary ---
Author Organization [facility] Address [address] [place] [address] Care Team Providers Care Pewter Finisher Name Role Phone Brooks Rodarte MD Primary Care Provider [phone] Encounter Details Date Type Department Care Team (Late st Contact Info) Description 06/12/2016 Abstract [facility] [address] [place] [address] Leila Wheeler, [facility] [address] [place] [address] Social History Tobacco Use Types Packs/Day Years [...] on filedocumented in this encounter Care Teams Pewter Finisher Relationship Specialty Start Date End Date Brooks Rodarte MD [address] [place] [address] PCP - General Family Medicine 07/04/23 documented as of this encounter
--- OUTSIDE RECORDS SUMMARY | 2025-05-31 18:02 | XMS_ITS | Encounter Summary ---
Author Organization [facility] Address [address] [place] [address] Care Team Providers Care Uniforms Sales Representative Name Role Phone Brooks Rodarte MD Primary Care Provider [phone] Encounter Details Date Type Department Care Team (Late st Contact Info) Description 04/07/2000 Abstract [facility] [address] [place] [address] Leila Wheeler, [facility] [address] [place] [address] Social History Tobacco Use Types Packs/Day Years [...] on filedocumented in this encounter Care Teams Uniforms Sales Representative Relationship Specialty Start Date End Date Brooks Rodarte MD [address] [place] [address] PCP - General Family Medicine 07/04/23 documented as of this encounter
== END 2025-05-31 18:29 | disposition home or self-care (01) ==
PROVIDERS: Emergency Provider Student in an Organized Health Care Education/Training Program; PCP Family Medicine
DX: M25.561 Pain in right knee (principal); Z96.653 Presence of artificial knee joint, bilateral; Z87.891 Personal history of nicotine dependence
CPT/HCPCS: 73562; 99283

== ENCOUNTER 2025-06-22 10:57 | Outpatient (RCR) | payer MEDICARE, SELFPAY | END 2025-07-14 10:14 | disposition home or self-care (01) | LOC: PT 10:57 | PROVIDERS: PCP Family Medicine; Visit Provider Orthopaedic Surgery | DX: M25.461 Effusion, right knee (principal); Z96.651 Presence of right artificial knee joint | CPT/HCPCS: 97110; 97112; 97161 ==

== ENCOUNTER 2025-07-05 12:48 | Outpatient (OUT) | payer MEDICARE, SELFPAY ==
--- OUTSIDE RECORDS SUMMARY | 2025-07-05 12:52 | XMS_ITS | CCD ---
Author Organization [facility] CliniSyme Care Team Providers Care [employer] Club Repairer Name Role Phone ANAM COVINGTON Unavailable Unavailable ANAM COVINGTON Unavailable Unavailable ANAM COVINGTON Unavailable Unavailable COLERIDGE, BROOKS Unavailable Unavailable COLERIDGE, DR POZO Primary Care Unavailable COLERIDGE, DR POZO Admitting Unavailable [place], DR JAXSON Jefferson Consulting Unavailable HOUSE, DR POZO Attending Unavailable HOUSE, DR POZO Consulting Unavailable HOUSE, DR POZO Primary Care Unavailable HOUSE, DR POZO Admitting Unavailable COLERIDGE, DR POZO Attending Unavailable COLERIDGE, DR POZO Consulting Unavailable [facility], DR SCOOTER Blank Consulting Unavailable COLERIDGE, DR POZO Consulting Unavailable COLERIDGE, DR POZO Primary Care Unavailable HOUSE, DR POZO Admitting Unavailable COLERIDGE, DR POZO Attending Unavailable Prince Bradford II Unavailable [phone] MD Prince Bradford II Attending Provider DO Brooks Thomson Primary Care Provider Mary Allen Unavailable MD Prince Bradford II Attending Provider [phone] DO Brooks Thomson Primary Care Provider FELICIA KRAMER Attending Unavailable JR. AGUILLON GEORGE C Attending Unav[facility] FELICIA KRAMER Attending Unavailable BROOKS THOMSON Referring Unavailable Prince Bradford MD Attending Provider House Brooks GIRARD Primary Care Provider Prince Bradford MD Attending Provider House Brooks GIRARD Primary Care Provider Brooks Thomson DO Primary Care Provider [phone] Elaine Crook MD Attending Provider House Brooks GIRARD Primary Care Provider [phone] Elaine Crook MD Attending Provider Prince Bradford MD Attending Provider [phone] [place] IRMA, Ann-Marie Niño Attending U navailable [place] II, Prince Muller Attending Unavailabl e [place] II, Prince Muller Admitting Unavailabl e House, Brooks Primary Care Unavailable [place] II, Prince Muller Attending Unavailabl e House, Brooks Primary Care Unavailable [place] II, Prince Muller Admitting Unavailabl e Sanchez II, Prince Muller Attending Unavailabl e House, Brooks Primary Care Unavailable Sanchez II, Prince Muller Admitting Unavailabl e [place] II, Prince Muller Attending Unavailabl e [place] II, Prince Muller Admitting Unavailabl e House, Brooks Primary Care Unavailable [place] II, Prince Muller Attending Unavailabl e [place] II, Prince Muller Admitting Unavailabl e House, Brooks Primary Care Unavailable HOUSE, BROOKS P Primary [...] Unavailable HOUSE, BROOKS P Primary Care Unavailable [place], Ann-Marie Muller Admitting Unavailable [place], Ann-Marie Muller Attending Unavailable HOUSE, BROOKS P Primary Care Unavailable HOUSE, DO BROOKS P Attending Unavailable HOUSE, BROOKS P Primary Care Unavailable HOUSE, BROOKS P Primary Care Unavailable HOUSE, DO BROOKS P Attending Unavailable HOUSE, DO BROOKS P Attending Unavailable HOUSE, BROOKS P Primary Care Unavailable Allergies Allergy ClassificationReported Allergen(s)Allergy TypeDate of OnsetReaction(s) Facility (7 sources)Sulfamethoxazole / TrimethoprimDrug AllergySam[facility] Hospital AdultSpace Other (16 sources)Sulfamethoxazole; Translations: [sulfamethoxazole]Drug Allergy 35-55-8003XhgrTdkbsxbtlE[facility] (16 sources)Trimethoprim; Translations: [trimethoprim]Drug Fhfirkf77-29-2078HmrbSelect [facility] (1 source)Sulfamethoxazole / Trimethoprim; Translations: [Bactrim]Drug Allergy [facility] Medications Current Medications MedicationDrug Class(es)DatesSig (Normalized)Sig (Original)acetaminophen 500 mg oral tablet (20 sources)Start: 53-55-7050wahv 1000 mg by mouth every eight hours Acetaminophen Active 1000 MG PO Q8H 0 September 17, 2023 1:00amStart: 09-03-2023 take 2 tablets by mouth every eight hourscholecalciferol 0.125 mg oral tablet (20 sources)Vitamin DStart: 26-07-8997mpob 1 tablet by mouth once daily in the morningStart: 94-11-6239gwlj 1 capsule by mouth once dailyCholecalciferol 125 MCG (5000 UT) 1 capsule Orally Once a day for 30 days Sep, Active cyclobenzaprine hydrochloride 5 mg oral tablet (2 sources)Muscle RelaxantStart: 41-69-9385swmephmjqu sodium 75 mg delayed release oral tablet (8 sources)Nonsteroidal Anti-inflammatory DrugStart: 63-39-0772flgcrgzufztpln 1.25 mg oral capsule (4 sources)Provitamin D2 CompoundStart: 51-49-0517reok 1 capsule by mouth every weekErgocalciferol 1.25 MG (17691 UT) 1 capsule Orally Once a Week for 60 days Sep, Activeesomeprazole 20 mg delayed release oral capsule (15 sources)Proton Pump InhibitorStart: 61-61-6945dcdl 1 capsule by mouth once daily in the morninglevothyroxine sodium 0.1 mg oral tablet (20 sources)l-ThyroxineStart: 86-06-4852eynj 1 tablet by mouth onceStart: 61-05-1482whyh 1 tablet by mouth onceLevothyroxine Sodium Active methylPREDNISolone 4 mg oral tablet (7 sources)CorticosteroidStart: 87-08-9749Ldsjc: 11-11-2024 End: 76-59-6682Rylqtosxzqdijcqpbc (Medrol (Shane)) 4 mg tablets,dose pack Discontinued 4 MG PO as directed 2024 12:00am December 16, 2024 1:43pm24 hr metoprolol succinate 50 mg extended release oral tablet (20 sources)beta-Adrenergic BlockerStart: 93-96-6769Yvxub: 69-14-7639mojp 75 mg by mouth once daily in the morningMetoprolol Succinate Active 75 MG PO Every morning September 04, 2023 1:00amMetoprolol Succinate ER Activeondansetron 8 mg oral tablet (6 sources)Serotonin-3 Receptor AntagonistStart: 11-77-7104nnbz 1 tablet by mouth three times daily as needed for nauseaOndansetron HCl 8 MG 1 tablet as needed for nausea Orally Three times a day for 10 days MED TO BED UPON DISCHARGE 09/16/23 Sep, Activerivaroxaban 10 mg oral tablet (6 sources)Factor Xa InhibitorStart: 23-41-9675qmwt 1 tablet by mouth every twenty-four hoursXarelto 10 MG 1 tablet with food Orally Once a day for 35 days MED TO BED UPON DISCHARGE 09/16/232023 Activetemazepam 30 mg oral capsule (20 sources)BenzodiazepineStart: 34-55-0712tgwt 1 capsule by mouth once daily at bedtimeTemazepam ActiveTriamterene-HCTZ (7 sources)Triamterene-HCTZ Active Completed/Discontinued Medications MedicationDrug Class(es)DatesSig (Normalized)Sig (Original)aspirin 81 mg delayed release oral tablet (14 sources)Platelet Aggregation Inhibitor, Nonsteroidal Anti-inflammatory Drug Start: 09-17-2023 End: 99-38-7843icuq 1 tablet by mouth twice dailyAspirin 81 mg Tablet,Delayed Release (Dr/Ec) Discontinued 81 MG PO Twice daily 0 September 17, 2023 1:00am October 29, 2023 2:09pmcefadroxil 500 mg oral capsule (20 sources)Cephalosporin AntibacterialStart: 09-17-2023 End: 28-24-8913iwfw 1 capsule by mouth twice dailyCefadroxil 500 mg Capsule Discontinued 500 MG PO Twice daily 0 September 17, 2023 1:00am 2023 2:08pmStart: 83-69-8967vzmw 1 capsule by mouth every twelve hoursCefadroxil 500 MG 1 tablet Orally every 12 hrs for 7 days MED TO BED UPON DISCHARGE 09/16/23 Activedocusate sodium 50 mg / sennosides, snf 8.6 mg oral tablet (20 sources)Start: 09-03-2023 End: 20-80-2475sijd 2 tablets by mouth once dailySennosides-Docusate Sodium 8.6- 50 mg Tablet Discontinued 2 TAB PO Daily 0 September 17, 2023 1:00am October 29, 2023 2:08pmKetorolac (7 sources)Nonsteroidal Anti-inflammatory Drug, Cyclooxygenase InhibitorStart: 18-48-6218Nypfpdy per 15 mg Mar, 30 mgmeloxicam 15 mg oral tablet (15 sources)Nonsteroidal Anti-inflammatory DrugStart: 09-04-2023 End: 94-86-7900rbxa 1 tablet by mouth once daily in the morningMeloxicam 15 mg Tablet Discontinued 15 MG PO Every morning September 04, 2023 1:00am September 18, 2023 12:02pmoxyCODONE hydrochloride 5 mg oral tablet (20 sources)Opioid AgonistStart: 09-03-2023 End: 90-66-4531cjnb 1 tablet by mouth every four hours as needed for pain Oxycodone 5 mg Tablet Discontinued 5 MG PO Every 4 hours as needed for Pain Scale 6 - 10 0 0 September 17, 2023 November 03, 2024 12:06pmpolyethylene glycol 3350 44927 mg powder for oral solution (20 sources)Osmotic LaxativeStart: 09-03-2023 End: 59-03-6865Xtpktsgvvvhd Glycol 3350 (Healthylax) 17 gram Powder In Packet Discontinued 17 GM PO Daily 0 0 September 17, 2023 1:00am October 29, 2023 2:08pm ConstipationpredniSONE 10 mg oral tablet (20 sources)Start: 09-03-2023 End: 61-62-7214twvl 1 tablet by mouth once dailyPrednisone 10 mg tablet Discontinued 10 MG PO Daily 10 0 September 18, 2023 1:00am October 29, 2023 2:08pmtraMADol hydrochloride 50 mg oral tablet (20 sources)Opioid AgonistStart: 09-03-2023 End: 74-57-7163tvmk 1 tablet by mouth every six hours as needed for painTramadol 50 mg Tablet Discontinued 50 MG PO Q6H as needed for Pain Scale 1 - 5 0 0 September 17, 2023 1:00am June 17, 2025 8:46amTriamcinolone (7 sources)CorticosteroidStart: 43-85-6714EVRWKLF - 10 mg Mar, 40 mg Problems Active Problems Problem ClassificationProblemDateDocumented DateEpisodic/ChronicComplication of device; implant or graft (3 sources)Pain due to internal orthopedic prosthetic devices, implants and grafts, initial encounterEpisodicEssential hypertension (19 sources)Hypertensive disorder; Translations: [Essential (primary) hypertension]Onset: 906211-33-0497RpzlwwkXwzqsu and vomiting (1 source)Nausea with vomiting, unspecified; Translations: [NAUSEA WITH VOMITING UNSPECIFIED]Onset: 51-60-6180XjpsmrdtAlannqrmreccgj (4 sources)Primary osteoarthritis, left wrist; Translations: [Primary osteoarthritis, left elbow]Onset: 65-70-3305EfvbjhfDrdsfgapyvbx (8 sources)Primary osteoporosis; Translations: [Age-related osteoporosis without current pathological fracture]ChronicOther aftercare (1 source)Patient encounter status; Translations: [Aftercare following joint replacement surgery]ChronicOther aftercare (18 sources)Aftercare following joint replacement surgery; Translations: [Aftercare following joint replacement]Onset: 14-93-6089NxyiuolArsnt aftercare (1 source)Other long distance operator (current) drug therapyEpisodicOther connective tissue disease (20 sources)History of total knee arthroplasty; Translations: [Presence of right artificial knee joint]31-21-4638OwzxaqaWaxme connective tissue disease (7 sources)Artificial knee joint present; Translations: [Presence of right artificial knee joint]ChronicOther connective tissue disease (7 sources)Presence of right artificial knee joint; Translations: [Knee joint replacement]Onset: 29-48-1235NglwrddCatft connective tissue disease (14 sources)History of revision of right total knee arthroplasty; Translations: [Presence of right artificial knee joint]30-90-3117XqaqaeoGuuom connective tissue disease (16 sources)Presence of unspecified artificial knee joint; Translations: [Knee joint replacement]99-71-5974ZllqoslNfnzq connective tissue disease (9 sources)Dupuytren's disease of palm; Translations: [Palmar fascial fibromatosis [Dupuytren]]03-27-8756GhlrrykuJrslz gastrointestinal disorders (4 sources)Diarrhea, unspecified; Translations: [DIARRHEA UNSPECIFIED]Onset: 12-15-2312JziegeldBhdnr nervous system disorders (9 sources)Carpal tunnel syndrome of left wrist; Translations: [Carpal tunnel syndrome, left upper limb]24-56-4788AvudokiRcavl non-traumatic joint disorders (4 sources)Swollen knee region; Translations: [Effusion, right knee]06-17-2025 EpisodicOther non-traumatic joint disorders (1 source)Pain in right knee; Translations: [Pain in right knee]Onset: 13-34-5982QmrjvxwxWxadd nutritional; endocrine; and metabolic disorders (6 sources)Morbid obesity; Translations: [Morbid (severe) obesity due to excess calories]ChronicOther nutritional; endocrine; and metabolic disorders (1 source)Morbid (severe) obesity due to excess caloriesChronicResidual codes; unclassified (5 sources)Insomnia, unspecified; Translations: [INSOMNIA UNSPECIFIED]Onset: 31-87-4903DvevdgwtAbkfcauldin; intervertebral disc disorders; other back problems (1 source)Pain in thoracic spine; Translations: [Pain in thoracic spine]Onset: 40-21-9867GzqjamtbHeipign disorders (20 sources)Hypothyroidism, unspecified; Translations: [Hypothyroidism]Onset: 773574-42-7551VtspveoLklckumugzob (2 sources)Unknown / UNK(Unknown)Onset: 08-14-2649Jsyoabqyyogt (1 source)Low back pain, unspecified; Translations: [Low back pain, unspecified] Onset: 05-23-2025 Past or Other Problems Problem ClassificationProblemDateDocumented DateEpisodic/ChronicFracture of upper limb (4 sources)Nondisplaced transverse fracture of shaft of left ulna, subsequent encounter for closed fracture with nonunion; Translations: [NONDISP TRANSVERSE FX SHAFT OF L ULNA, 7THK]Onset: 92-19-2161DxbpvxiaJnsad connective tissue disease (4 sources)Pain in left foot; Translations: [PAIN IN LEFT FOOT]Onset: 05-10-2022 EpisodicOther connective tissue disease (1 source)Neuralgia and neuritis, unspecified; Translations: [NEURALGIA AND NEURITIS UNSPECIFIED]Onset: 05-33-5198KtddytfcNdkcf screening for suspected conditions (not mental disorders or infectious disease) (1 source)Encounter for screening mammogram for malignant neoplasm of breast; Translations: [ENC SCR MAMMO MALIG NEOPLASM BREAST]Onset: 11-48-7334Dsorhigp Residual codes; unclassified (1 source)Family history of malignant neoplasm of breast; Translations: [FAMILY HX MALIG NEOPLASM OF BREAST]Onset: 31-69-1687ElfypsfbWjeyplnj codes; unclassified (1 source)Family history of malignant neoplasm of ovary; Translations: [FAM HX MALIGNANT NEOPLASM OVARY]Onset: 37-71-4319Dcgonxnu Results Test NameValueInterpretationReference RangeFacilityConsent Formson 06-27-2025 Consent [id number]#1.00[facility] HospitalControlled Substances Agreementson 05-39-4710Tpnmkfmxlr Substances [id number]#1.00[facility] HospitalProgress Note - Provideron 83-66-1257Gfqekjra Note - Provider [id number]#1.00[facility] Consultation/Specialist Noteon 61-07-1905Mbvhrhosahwk/Specialist Note [id number]#1.00[facility] Coding Summaryon 03-44-8463Wzaoab SummaryHTMLBase 64 DxdqtjlpEJq4hUi+PGhlYWQ+VV9RCPJuO86mbHOcpU4mF1LUXPjGUoykQHUEYQtSYrNimuHvXC1mbQMy ZXJu [file] IGN (more content not included)...[facility] HospitalOutside Recordson 55-85-5273Fcprohw [id number]#1.00OTGTIFF [facility] HospitalOutside Records [id number]#1.00OTGTIFFNoTriHealth Good [facility]itan Hospital HospitalCT knee RT wo conon 25-73-8687PV knee RT wo [address] Scan Report Signed Patient: Janet Mccormack MR#: [id number] : 1960 Acct:[id number] Age/Sex: 64 / F ADM Date: 06/01/25 Loc: CT Room: Type: [facility] Attending Dr: Prince Bradford II, MD Copies to: Prince Bradford MD Ordering Provider: Prince Bradford MD Date of Service: 06/01/25 CT/CT knee RT wo con: M25.561 - Pain in right knee CT of the right knee without contrast TECHNIQUE: The CT exam was performed using one or more the following dose reduction techniques: Automated exposure control, adjustment of the MA and/or Kv according to patient size, or use of the iterative reconstruction technique. COMPARISON: Plain film imaging 05/31/2025 HISTORY: Fell yesterday. Knee replacement 18 months ago. Stiffness and pain with walking. Right knee arthroplasty. Adequate alignment of hardware. No hardware complication. No displaced fracture identified. Moderate joint effusion. No soft tissue hematoma. No subcutaneous air. CT/CT knee RT wo con IMPRESSION: Uncomplicated right knee arthroplasty. No acute displaced fracture. Large joint effusion. Impression dictated by: Noé Beck M.D. 06/01/2025 7:09 PM Dictation Location: [place] [address] Transcribed By: [facility] 06/01/251908 Dictated By: Noé Beck DO 06/01/251902 Signed By: 06/01/251908[facility] Physician GroupRad - Other Radiology Reporton 49-80-3888Nuo - Other Radiology Report [id number]#1.00[facility] Controlled Substances Agreementson 14-49-4480Rcjhebhwgi Substances Agreements [id number]#1.00[facility] Consultation/Specialist Noteon 76-52-0438Zmpxbiyzkjxz/Specialist Note [id number]#1.00[facility] Consultation/Specialist [id number]#1.00OTGTIFF [facility] RehabilitationX-ray reportOrdered By: Leonel Emmanuel on 11-11-2024 [facility] [address] [place] [address] XRay Report Signed Patient: Janet Mccormack MR#: [id number] : 1960 Acct:[id number] Age/Sex: 64 / F ADM Date: 5 Loc: SOXD Room: Type: REG CLI Attending Dr: Prince Bradford II, MD [...] Emmanuel Jr., D.OIsaiah11/11/2024 1:06 PM Dictation Location: [place] [address] Transcribed By: [facility] 11/11/24 1306 Dictated By: Leonel Emmanuel Jr, DO 11/11/24 1306 Signed By: 11/11/24 1306 [facility] HospitalXR knee RT 3V - NOT FOR ER USEon 69-00-0391FA knee RT 3V - NOT FOR ER USEGRANT HOSPITAL [facility] [address] [place] [address] XRay Report Signed Patient: Janet Mccormack MR#: [id number] : 1960 Acct:[id number] Age/Sex: 64 / F ADM Date: 11/11/24 Loc: SOXD Room: Type: REG CLI Attending Dr: Prince Bradford II, MD [...] Emmanuel Jr., D.OIsaiah11/11/2024 1:06 PM Dictation Location: [facility]--23 Transcribed By: [facility] 11/11/24 1306 Dictated By: Leonel Emmanuel Jr, DO 11/11/24 1306 Signed By: 11/11/24 1306[facility] Physician GroupBasophils Auto (Bld) [#/Vol] Ordered By: Prince Bradford on 60-18-9242Bpgnuovjj (Bld) [#/Vol]Automated basophil count0.0-0.2FGreene Memorial HospitalBasophils/100 WBC Auto (Bld)Ordered By: Prince Bradford on 55-69-6625Dtfbnlkua/100 WBC (Bld)Automated basophil %.[facility] HospitalC reactive protein [Mass/volume] in Serum or PlasmaOrdered By: Prince Bradford on 65-22-2448NWX [Mass/Vol]C reactive protein [Mass/volume] in Serum or PlasmaHigh0.0-0.5FGreene Memorial HospitalC-Reactive Proteinon 16-13-0866G-Reactive Protein0.7 mg/dLHigh0.0-0.5The [facility] Physician GroupComment on above:Result Comment: PERFORMED BY: [place] [address] PATHOLOGIST CHIP UNLOADER JOSS JEONG M.D.Performed By: #### CBC, CRP, DDIMER, ESR #### [place] [address] USAComplete Blood Count Auto Diffon 43-18-5205Ldannymgy (Bld) [#/Vol]0.0 10*3/uLNormal0.0-0.2The [facility] Physician GroupComment on above: Performed By: #### CBC, CRP, DDIMER, ESR #### [place] [address] USABasophils/100 WBC (Bld)1.3 %Normal.The [facility] Physician GroupComment on above:Performed By: #### CBC, CRP, DDIMER, ESR #### [place] [address] USAEosinophils (Bld) [#/Vol]0.2 10*3/uLNormal0.0-0.45The [facility] Physician GroupComment on above:Performed By: #### CBC, CRP, DDIMER, ESR #### [place] [address] USAEosinophils/100 WBC (Bld)5.6 %Normal.[facility] Physician GroupComment on above:Performed By: #### CBC, CRP, DDIMER, ESR #### [place] [address] USAErythrocyte distribution width (RBC) [Ratio]13.3 %Normal 11.9-15.3The [facility] Physician GroupComment on above:Performed By: #### CBC, CRP, DDIMER, ESR #### [place] [address] USAHematocrit (Bld) [Volume fraction]35.8 %Kqfonu99.0-46.4The [facility] Physician GroupComment on above:Performed By: #### CBC, CRP, DDIMER, ESR #### [place] [address] USAHemoglobin (Bld) [Mass/Vol]12.8 g/aREjcrns83.8-15.4The [facility] Physician GroupComment on above:Performed By: #### CBC, CRP, DDIMER, ESR #### [place] [address] USALymphocytes (Bld) [#/Vol]0.9 10*3/uLLow1.00-4.8The [facility] Physician GroupComment on above:Performed By: #### CBC, CRP, DDIMER, ESR #### [place] [address] USALymphocytes/100 WBC (Bld)24.0 %Normal.[facility] Physician GroupComment on above:Performed By: #### CBC, CRP, DDIMER, ESR #### [address] (RBC) [Entitic mass]31.3 xtMsiiid37.7-34.3The [facility] Physician GroupComment on above:Performed By: #### CBC, CRP, DDIMER, ESR #### [address] (RBC) [Entitic vol]87.7 mVWkhjit51-202Elt [facility] Physician GroupComment on above:Performed By: #### CBC, CRP, DDIMER, ESR #### [place] [address] USAMean Corpuscular HGB Conc35.7 g/dUHdft75.0-35.0The [facility] Physician GroupComment on above:Performed By: #### CBC, CRP, DDIMER, ESR #### [place] [address] USAMonocytes (Bld) [#/Vol]0.3 10*3/uLNormal0.0-0.8The [facility] Physician GroupComment on above:Performed By: #### CBC, CRP, DDIMER, ESR #### [place] [address] USAMonocytes/100 WBC (Bld)8.8 %Normal.[facility] Physician GroupComment on above:Performed By: #### CBC, CRP, DDIMER, ESR #### [place] [address] USANeutrophils (Bld) [#/Vol]2.4 10*3/uLNormal1.8-7.7The [facility] Physician GroupComment on above:Performed By: #### CBC, CRP, DDIMER, ESR #### [place] [address] USANeutrophils/100 WBC (Bld)60.3 %Normal.[facility] Physician GroupComment on above:Performed By: #### CBC, CRP, DDIMER, ESR #### [place] [address] USANRBC%0.1 /100{WBC}Normal0-0.5The [facility]ician Group Comment on above:Performed By: #### CBC, CRP, DDIMER, ESR #### [place] [address] USAPlatelet mean volume (Bld) [Entitic vol]8.1 fLNormal 6.3-10.7The [facility] Physician GroupComment on above:Performed By: #### CBC, CRP, DDIMER, ESR #### [place] [address] USAPlatelets (Bld) [#/Vol]240 10*3/yLGlqaiq368-834Aiv [facility] Physician GroupComment on above:Performed By: #### CBC, CRP, DDIMER, ESR #### [place] [address] USARBC (Bld) [#/Vol]4.08 10*6/uLNormal3.60-5.00The [facility] Physician GroupComment on above:Performed By: #### CBC, CRP, DDIMER, ESR #### [place] [address] USAWBC (Bld) [#/Vol]3.9 10*3/uLNormal3.8-11.6The [facility] Physician GroupComment on above:Performed By: #### CBC, CRP, DDIMER, ESR #### [place] [address] USAD-Dimer High Sensitivityon 60-79-4822M-Dimer High Euodqwshgap779 ng/mLHigh0-243The [facility] Physician GroupComment on above: Result Comment: The reference range [...] coagulation studies. Please contact the laboratory at [phone] for redraw instructions. PERFORMED BY: [place] [address] PATHOLOGIST CHIP UNLOADER JOSS JEONG M.D.Performed By: #### CBC, CRP, DDIMER, ESR #### [address] [address] USAEosinophils Auto (Bld) [#/Vol]Ordered By: Prince Bradford on 01-17-3037Lyipezqujeq (Bld) [#/Vol]Automated eosinophil count0.0-0.45 [facility] HospitalEosinophils/100 WBC Auto (Bld)Ordered By: Prince Bradford on 49-37-3226Uyrhylzpcmr/100 WBC (Bld)Automated eosinophil %. [facility] HospitalErythrocyte Sedimentation Rateon 75-59-1396HDP (Bld) [Velocity]23 mm/hNormal0-29The [facility] Physician GroupComment on above: Result Comment: PERFORMED BY: [place] [id number] PATHOLOGIST CHIP UNLOADER JOSS JEONG M.D.Performed By: #### CBC, CRP, DDIMER, ESR #### [address] [address] USAErythrocyte distribution width Auto (RBC) [Ratio]Ordered By: Prince Bradford on 88-62-1971Qfnjwajslsb distribution width (RBC) [Ratio] Erythrocyte distribution width [Ratio] by Automated count11.9-15.3FGreene Memorial HospitalErythrocyte sedimentation rate by Photometric method Ordered By: Prince Bradford on 81-91-4713FVP Photometric method (Bld) [Velocity] Erythrocyte sedimentation rate by Photometric method0-29Mansfield HospitalFibrin D-dimer [Presence] in Platelet poor plasma by Latex agglutinationOrdered By: Prince Bradford on 19-54-3619Orkngw D-dimer LA Ql (PPP) Fibrin D-dimer [Presence] in Platelet poor plasma by Latex agglutinationHigh 0-243M[facility]field HospitalComment on above:The reference range for D-dimer is <243 ng/mL D-dimer units.D-dimer results must be used in conjunction with a clinicalpretest probability (PTP) assessment model for deep veinthrombosis (DVT) and pulmonary embolism (PE). Results <230ng/mL d-dimer units can be used as a negative predictor inpatients with low or moderate probability for DVT/PE.Results above the exclusion threshold of 230 ng/ml D- dimerunits for DVT/PE may indicate the need for furtherdiagnostic testing.D- Dimer can be increased in hospitalized patients due toco-morbid conditions.A hematocrit value greater than 55% may lead to inaccurate results in coagulation testing. Patients having hematocrit values >55% require a special collection tube for coagulation studies. Please contact the laboratory at [phone] for redraw instructions.Hematocrit Auto (Bld) [Volume fraction]Ordered By: Prince Bradford on 88-85-0085Udwaxcmtjs (Bld) [Volume fraction]Hematocrit [Volume Fraction] of Blood by Automated count34.0-46.4FGreene Memorial Hospital Hemoglobin [Mass/volume] in BloodOrdered By: Prince Bradford on 11-03-2024 Hemoglobin (Bld) [Mass/Vol]Hemoglobin [Mass/volume] in Blood11.8-15.4FGreene Memorial HospitalLeukocytes [#/volume] corrected for nucleated erythrocytes in Blood by Automated counOrdered By: Prince Bradford on 11-03-2024 WBC corrected for nucl RBC Auto (Bld) [#/Vol]Leukocytes [#/volume] corrected for nucleated erythrocytes in Blood by Automated coun3.8-11.6FGreene Memorial HospitalLymphocytes Auto (Bld) [#/Vol]Ordered By: Prince Bradford on 48-06-7042Qamzggvcjnr (Bld) [#/Vol]Lymphocytes [#/volume] in Blood by Automated countLow1.00-4.8M[facility]field HospitalLymphocytes/100 WBC Auto (Bld) Ordered By: Prince Bradford on 82-92-9194Pscnblivvnk/100 WBC (Bld) Lymphocytes/100 leukocytes in Blood by Automated count.[facility] HospitalMCH Auto (RBC) [Entitic mass]Ordered By: Prince Bradford on 10-44-7692FCQ (RBC) [Entitic mass]MCH [Entitic mass] by Automated count24.7-34.3 [facility] HospitalMCHC Auto (RBC) [Mass/Vol]Ordered By: Prince Bradford on 88-02-1672ZIPN (RBC) [Mass/Vol]MCHC [Mass/volume] by Automated count High32.0-35.0M[facility] HospitalMCV Auto (RBC) [Entitic vol] Ordered By: Prince Bradford on 37-27-1184QGX (RBC) [Entitic vol]MCV [Entitic volume] by Automated -181EhlehtzgkMansfield HospitalMonocytes Auto (Bld) [#/Vol]Ordered By: Prince Bradford on 68-13-6534Lsyuhwvyh (Bld) [#/Vol] Automated blood monocyte count0.0-0.8[facility] Monocytes/100 WBC Auto (Bld)Ordered By: Prince Bradford on 11-03-2024 Monocytes/100 WBC (Bld)Automated monocyte %.[facility] Neutrophils Auto (Bld) [#/Vol]Ordered By: Prince Bradford on 11-03-2024 Neutrophils (Bld) [#/Vol]Neutrophils [#/volume] in Blood by Automated count 1.8-7.7FGreene Memorial HospitalNeutrophils/100 WBC Auto (Bld)Ordered By: Prince Bradford on 58-20-2349Kzxqqjhopvt/100 WBC (Bld)Automated neutrophil % .M[facility]field HospitalNucleated erythrocytes [Presence] in Blood by Automated countOrdered By: Prince Bradford on 36-69-1499Mtrrqifdw RBC Auto Ql (Bld)Nucleated erythrocytes [Presence] in Blood by Automated count0-0.5FGreene Memorial HospitalPlatelet mean volume Auto (Bld) [Entitic vol]Ordered By: Prince Bradford on 67-35-2089Aqtdsjik mean volume (Bld) [Entitic vol]Platelet mean volume [Entitic volume] in Blood by Automated count6.3-10.7FGreene Memorial HospitalPlatelets Auto (Bld) [#/Vol]Ordered By: Prince Bradford on 29-55-7626Ozlnyqktb (Bld) [#/Vol]Platelets [#/volume] in Blood by Automated dliwz330-944LvbdsbzhsMansfield HospitalRBC Auto (Bld) [#/Vol]Ordered By: Prince Bradford on 02-59-4599KVG (Bld) [#/Vol]Erythrocytes [#/volume] in Blood by Automated count3.60-5.00M[facility] HospitalWBC Auto (Bld) [#/Vol]Ordered By: Prince Bradford on 50-85-5140UOY (Bld) [#/Vol]Leukocytes [#/volume] in Blood by Automated count3.8-11.6FGreene Memorial Hospital Consultation/Specialist Noteon 13-65-8388Bpgltpzistny/Specialist Note [id number]#1.00OTCherrington HospitalX- ray reportOrdered By: Leonel Emmanuel on 66-77-4984Vyocc reportGRANT HOSPITAL [facility] [address] [place] [address] XRay Report Signed Patient: Janet Mccormack MR#: [id number] : 1960 Acct:[id number] Age/Sex: 64 / F ADM Date: 5 Loc: SOXD Room: Type: [facility] Attending Dr: Prince Bradford II, MD Copies [...] 6:29 PM Dictation Location: [id number]-[id number] Transcribed By: WILTON 09/08/241828 Dictated By: Leonel Emmanuel Jr DO 09/08/241827 Signed By: 09/08/241828 [facility] HospitalXR knee RT 2Von 30-79-3095ET knee RT 2V [facility] [address] [place] [address] XRay Report Signed Patient: Janet Mccormack MR#: [id number] : 1960 Acct:[id number] Age/Sex: 64 / F ADM Date: 09/08/24 [place] [facility] [place]: Type: [facility] Attending Dr: Prince Bradford II, MD Copies [...] Leonel Emmanuel Jr, DO 09/08/241827 Signed By: 09/08/[address] [place] [address] Physician GroupAutomated epithelial cells count in urine sediment (number/area)Ordered By: Prince Bradford on 09-04-2023 Epithelial cells Auto (Urine sed) [#/Area]0-1 [HPF]0-2FGreene Memorial HospitalAutomated erythrocytes count in urine sediment (number/area)Ordered By: Prince Bradford on 52-65-7231RKG Auto (Urine sed) [#/Area]0-1 [HPF]0-4FGreene Memorial HospitalAutomated leukocytes count in urine sediment (number/area)Ordered By: Prince Bradford on 49-56-7538TGU Auto (Urine sed) [#/Area]0-1 [HPF]0-4FGreene Memorial HospitalAutomated urine hyaline casts count (number/volume)Ordered By: Prince Bradford on 94-83-3393Kfgjqro casts Auto (U) [#/Vol]None seen [LPF]0-1FGreene Memorial Hospital Basophils Auto (Bld) [#/Vol]Ordered By: Prince Bradford on 49-60-2221Yijxyravt (Bld) [#/Vol]0.0 10*3/uL0.0-0.2FGreene Memorial HospitalBasophils/100 WBC Auto (Bld)Ordered By: Prince Bradford on 95-99-8429Adpdqmqbf/100 WBC (Bld) 0.8 %.M[facility]field HospitalBilirubin Test strip Ql (U)Ordered By: Prince Bradford on 53-33-5434Bggfklgvy Ql (U)NegativeNegativeMansfield HospitalCalcium [Mass/volume] in Serum or PlasmaOrdered By: Prince Bradford on 29-38-7254Kbbcyre [Mass/Vol]9.0 mg/dL8.6-10.3FGreene Memorial HospitalCarbon dioxide, total [Moles/volume] in Serum or PlasmaOrdered By: Prince Bradford on 48-80-2530TH7 [Moles/Vol]26.4 mmol/L21.0-31.0M[facility] HospitalChloride [Moles/volume] in Serum or PlasmaOrdered By: Prince Bradford on 66-98-8750Arfjgvhz [Moles/Vol]95 mmol/C55-573QtqmnkntnMansfield HospitalColor Auto (U)Ordered By: Prince Bradford on 09-04-2023 Color (U)YellowYellowMansfield HospitalCreatinine [Mass/volume] in Serum or PlasmaOrdered By: Prince Bradford on 97-79-5204Sdretoqlsk [Mass/Vol] 0.85 mg/dL0.60-1.20M[facility]field HospitalEosinophils Auto (Bld) [#/Vol]Ordered By: Prince Bradford on 51-94-7781Vjmrfxxpuws (Bld) [#/Vol]0.1 10*3/uL0.0-0.45M[facility]field HospitalEosinophils/100 WBC Auto (Bld) Ordered By: Prince Bradford on 07-41-2310Hloeegxjpjm/100 WBC (Bld)3.1 %. [facility]field HospitalErythrocyte distribution width Auto (RBC) [Ratio]Ordered By: Prince Bradford on 58-15-4125Suzfapyfuuq distribution width (RBC) [Ratio]12.5 %11.9-15.3FGreene Memorial HospitalFructosamine [Moles/volume] in Serum or PlasmaOrdered By: Prince Bradford on 09-04-2023 Fructosamine [Moles/Vol]207 umol/L0-285Mansfield HospitalComment on above:Published reference interval for apparently healthysubjects between age 20 and 60 is 205 - 285 umol/L and in apoorly controlled diabetic population is 228 - 563 umol/Lwith a mean of 396 umol/L.Performed at: [facility] [id number] Director: Walter Prince PhD, Phone: [phone] [Mass/volume] in Serum or PlasmaOrdered By: Prince Bradford on 55-75-3681Zockxbp [Mass/Vol]107 mg/nD33-966QmejetbnkMansfield Hospital Comment on above:ADA recommended reference rangeRandom Glucose Reference Range is dependent on time and content of last meal. Glucose of more than 200 mg/dL in a nonstressed, ambulatory subject supports the diagnosisof Diabetes Mellitus. Hematocrit Auto (Bld) [Volume fraction]Ordered By: Prince Bradford on 09-04-2023 Hematocrit (Bld) [Volume fraction]40.1 %34.0-46.4FGreene Memorial HospitalHemoglobin [Mass/volume] in BloodOrdered By: Prince Bradford on 09-04-2023 Hemoglobin (Bld) [Mass/Vol]14.0 g/dL11.8-15.4FGreene Memorial Hospital Ketones Auto test strip (U) [Mass/Vol]Ordered By: Prince Bradford on 09-04-2023 Ketones (U) [Mass/Vol]NegativeNegativeMansfield Hospital Leukocytes [#/volume] corrected for nucleated erythrocytes in Blood by Automated counOrdered By: Prince Bradford on 46-50-8651UFW corrected for nucl RBC Auto (Bld) [#/Vol]4.2 10*3/uL3.8-11.6FGreene Memorial HospitalLymphocytes Auto (Bld) [#/Vol]Ordered By: Prince Bradford on 97-77-7589Ghzvrlafkzi (Bld) [#/Vol]1.3 10*3/uL1.00-4.8M[facility]field HospitalLymphocytes/100 WBC Auto (Bld)Ordered By: Prince Bradford on 42-22-0052Axadwhifymh/100 WBC (Bld)31.8 %.[facility] Auto (RBC) [Entitic mass]Ordered By: Prince Bradford on 89-30-0643YDJ (RBC) [Entitic mass]30.3 pg24.7-34.3FGreene Memorial HospitalMCHC Auto (RBC) [Mass/Vol]Ordered By: Prince Bradford on 35-17-9821WVVW (RBC) [Mass/Vol]34.9 g/dL32.0-35.0M[facility]field HospitalMCV Auto (RBC) [Entitic vol]Ordered By: Prince Bradford on 68-24-7309BHM (RBC) [Entitic vol]86.8 tY75-311UrqxnkkecMansfield HospitalMonocytes Auto (Bld) [#/Vol]Ordered By: Prince Bradford on 48-12-4577Scsyocijv (Bld) [#/Vol]0.4 10*3/uL0.0-0.8M[facility] HospitalMonocytes/100 WBC Auto (Bld) Ordered By: Prince Bradford on 51-07-1951Wjmglnmzs/100 WBC (Bld)8.8 %.M[facility]field HospitalNeutrophils Auto (Bld) [#/Vol]Ordered By: Prince Bradford on 18-84-3260Htpsivnrjzd (Bld) [#/Vol]2.4 10*3/uL1.8-7.7FGreene Memorial HospitalNeutrophils/100 WBC Auto (Bld)Ordered By: Prince Bradford on 15-33-4519Vmrqvsplvje/100 WBC (Bld)55.5 %.[facility] Nitrite Test strip Ql (U)Ordered By: Prince Bradford on 95-88-2866Wbsdsfg Ql (U) NegativeNegativeMansfield HospitalNo Panel InformationOrdered By: Prince Bradford on 90-08-4734Bzkbhxihc GFR (CKD-EPI)> 60.0 mL/MinMansfield HospitalPharmacy Creatinine Clearance (ChemN/AFGreene Memorial HospitalNucleated erythrocytes [Presence] in Blood by Automated count Ordered By: Prince Bradford on 54-86-8330Qegynczrf RBC Auto Ql (Bld)0.1 /100{WBC}0-0.5FGreene Memorial HospitalPlatelet mean volume Auto (Bld) [Entitic vol]Ordered By: Prince Bradford on 96-38-7513Qbjssjwe mean volume (Bld) [Entitic vol]8.3 fL6.3-10.7FGreene Memorial HospitalPlatelets Auto (Bld) [#/Vol]Ordered By: Prince Bradford on 62-98-0227Wiyrvcuaf (Bld) [#/Vol]267 10*3/qI462-540BlxheygxvMansfield HospitalPotassium [Moles/volume] in Serum or PlasmaOrdered By: Prince Bradford on 43-05-6921Ohqmuuojq [Moles/Vol]4.3 mmol/L3.5-5.1FGreene Memorial HospitalProtein Auto test strip (U) [Mass/Vol]Ordered By: Prince Brdaford on 15-78-8524Zeuzxhg (U) [Mass/Vol] NegativeNegativeMansfield HospitalRBC Auto (Bld) [#/Vol]Ordered By: Prince Bradford on 15-67-7253EVI (Bld) [#/Vol]4.62 10*6/uL3.60-5.00Paulding County Hospitalerum or plasma anion gap determinationOrdered By: Prince Bradford on 35-36-7560Zobmw gap [Moles/Vol]10.9 mmol/L6.0-15.0Paulding County Hospitalodium [Moles/volume] in Serum or PlasmaOrdered By: Prince Bradford on 95-24-8609Pcvhnw [Moles/Vol]128 mmol/G553-246BrkvjbhqoPaulding County Hospitalpecific gravity Auto test strip (U) [Rel density]Ordered By: Prince Bradford on 28-28-9932Hubowocn gravity (U) [Rel density]1.006 1.001-1.030M[facility]field HospitalUrea nitrogen [Mass/volume] in Serum or PlasmaOrdered By: Prince Bradford on 00-03-5175Tokg nitrogen [Mass/Vol]9 mg/dL7-25Mansfield HospitalUrine bacteria detection by automated methodOrdered By: Prince Bradford on 34-69-1406Fdciiclz Auto Ql (U)None seenNone SeenMansfield HospitalUrine clarity by refractometry automated Ordered By: Prince Bradford on 98-35-9817Donyems Refractometry automated (U) ClearCleMemorial Health SystemUrine glucose measurement by automated test strip (mass/volume)Ordered By: Prince Bradford on 09-04-2023 Glucose Auto test strip (U) [Mass/Vol]Normal mg/dLNormalMansfield HospitalUrine hemoglobin detection by automated test stripOrdered By: Prince Bradford on 27-57-6585Xfgxytlimj Auto test strip Ql (U)NegativeNegative Mansfield HospitalUrine leukocyte esterase detection by automated test stripOrdered By: Prince Bradford on 32-97-8486Ovyjujrkm esterase Auto test strip Ql (U)1+NegativeMansfield HospitalUrobilinogen Auto test strip (U) [Mass/Vol]Ordered By: Prince Bradford on 38-10-3161Ikccwonqzlxr (U) [Mass/Vol]Normal mg/dLNormalMansfield HospitalWBC Auto (Bld) [#/Vol]Ordered By: Prince Bradford on 27-00-8219CLR (Bld) [#/Vol]4.2 10*3/uL 3.8-11.6FGreene Memorial HospitalpH Auto test strip (U)Ordered By: Prince Bradford on 92-65-5619qI (U)6.5 [pH]5.0-9.0M[facility]field HospitalAlbumin [Mass/volume] in Serum or Plasma by Bromocresol green (BCG) dye binding methoOrdered By: Prince Bradford on 42-48-1040Udymsdc BCG dye [Mass/Vol] 4.2 g/dL3.5-5.7FGreene Memorial HospitalBasophils Auto (Bld) [#/Vol] Ordered By: Prince Bradford on 82-13-2907Zjhtbyysq (Bld) [#/Vol]0.0 10*3/uL 0.0-0.2FGreene Memorial HospitalBasophils/100 WBC Auto (Bld)Ordered By: Prince Bradford on 22-85-6468Wqjehywrw/100 WBC (Bld)1.0 %.M[facility]field HospitalC reactive protein [Mass/volume] in Serum or PlasmaOrdered By: Prince Bradford on 35-73-2606QWI [Mass/Vol]< 0.5 mg/dL0.0-0.5FGreene Memorial HospitalCotinine [Mass/volume] in Serum or PlasmaOrdered By: Prince Bradford on 58-31-0170Siaszisr [Mass/Vol]<1.0 ng/mL.Mansfield HospitalComment on above:This test was developed and its performance characteristicsdetermined by [facility] [facility]. It has not been cleared orapproved by the Food and Drug Administration.Cotinine levels greater than 20.0 are consistent with theuse of tobacco or tobacco cessation products.Performed at: [address] [id number] Director: Ritika Don MD, Phone: [phone] Auto (Bld) [#/Vol]Ordered By: Prince Bradford on 24-75-4384Nhuesevqwgr (Bld) [#/Vol]0.2 10*3/uL0.0-0.45M[facility]field HospitalEosinophils/100 WBC Auto (Bld)Ordered By: Prince Bradford on 27-84-8988Fkmexuyrihz/100 WBC (Bld)3.7 %.[facility] Erythrocyte distribution width Auto (RBC) [Ratio]Ordered By: Prince Bradford on 57-13-6721Sknlomxrorv distribution width (RBC) [Ratio]12.4 %11.9-15.3FGreene Memorial HospitalErythrocyte sedimentation rate by Photometric method Ordered By: Prince Bradford on 87-58-3501RTD Photometric method (Bld) [Velocity] 19 mm/hr0-29Mansfield HospitalFibrin D-dimer [Presence] in Platelet poor plasma by Latex agglutinationOrdered By: Prince Bradford on 84-75-2596Qmvoob D-dimer LA Ql (PPP)313 ng/mL0-243M[facility]field HospitalComment on above:The reference range for D-dimer is <243 ng/mL [...] coagulation studies. Please contact the laboratory at [phone] for redraw instructions.Glucose mean value [Mass/volume] in Blood Estimated from glycated hemoglobinOrdered By: Prince Bradford on 30-80-3470Ukhazcr glucose Estimated from glycated hemoglobin (Bld) [Mass/Vol]117 mg/dLMansfield HospitalHematocrit Auto (Bld) [Volume fraction]Ordered By: Prince Bradford on 53-33-6864Ptiborhsom (Bld) [Volume fraction]40.6 %34.0-46.4FGreene Memorial HospitalHemoglobin A1c percentageOrdered By: Prince Bradford on 03-03-0851PmZ5d (Bld) [Mass fraction] 5.7 %4.3-5.6FGreene Memorial HospitalComment on above:Increased risk for diabetes: 5.7 - 6.4diabetes: >6.4glycemic control for adults with diabetes: &l t;7.0Hemoglobin [Mass/volume] in BloodOrdered By: Prince Bradford on 09-03-2023 Hemoglobin (Bld) [Mass/Vol]13.8 g/dL11.8-15.4FGreene Memorial Hospital Leukocytes [#/volume] corrected for nucleated erythrocytes in Blood by Automated counOrdered By: Prince Bradford on 18-99-1566XXP corrected for nucl RBC Auto (Bld) [#/Vol]4.3 10*3/uL3.8-11.6FGreene Memorial HospitalLymphocytes Auto (Bld) [#/Vol]Ordered By: Prince Bradford on 24-64-1471Dcfarlnmyoj (Bld) [#/Vol]1.4 10*3/uL1.00-4.8M[facility]field HospitalLymphocytes/100 WBC Auto (Bld)Ordered By: Prince Bradford on 27-51-2888Msrevdbowvp/100 WBC (Bld)33.5 %.[facility] DublinH Auto (RBC) [Entitic mass]Ordered By: Prince Bradford on 31-31-8810QXI (RBC) [Entitic mass]29.8 pg24.7-34.3FGreene Memorial HospitalMCHC Auto (RBC) [Mass/Vol]Ordered By: Prince Bradford on 82-89-7896GCMH (RBC) [Mass/Vol]34.0 g/dL32.0-35.0M[facility] HospitalMCV Auto (RBC) [Entitic vol]Ordered By: Prince Bradford on 38-63-5154WNI (RBC) [Entitic vol]87.4 yG47-877ZftoverayMansfield HospitalMonocytes Auto (Bld) [#/Vol]Ordered By: Prince Bradford on 31-78-9804Fdszplvrf (Bld) [#/Vol]0.4 10*3/uL0.0-0.8M[facility] HospitalMonocytes/100 WBC Auto (Bld) Ordered By: Prince Bradford on 71-93-2956Jfpvgnhpr/100 WBC (Bld)9.2 %.[facility]field HospitalNeutrophils Auto (Bld) [#/Vol]Ordered By: Prince Bradford on 64-05-4682Ooerszbpvwv (Bld) [#/Vol]2.3 10*3/uL1.8-7.7FGreene Memorial HospitalNeutrophils/100 WBC Auto (Bld)Ordered By: Prince Bradford on 13-16-4325Umeczmkhxnq/100 WBC (Bld)52.6 %.[facility] Nicotine [Mass/volume] in Serum or PlasmaOrdered By: Prince Bradford on 11-19-6445Nrbgdzne [Mass/Vol]<1.0 ng/mL.M[facility]field HospitalComment on above:This test was developed and its performance characteristicsdetermined by [employer]. It has not been cleared orapproved by the Food and Drug Administration.Nicotine levels greater than 2.0 are consistent with theuse of tobacco or tobacco cessation products.Nucleated erythrocytes [Presence] in Blood by Automated countOrdered By: Prince Bradford on 84-64-5006Nciiclzre RBC Auto Ql (Bld)0.3 /100{WBC}0-0.5FGreene Memorial HospitalPlatelet mean volume Auto (Bld) [Entitic vol]Ordered By: Prince Bradford on 70-02-6957Ajcpbsaq mean volume (Bld) [Entitic vol]8.9 fL6.3-10.7FGreene Memorial Hospital Platelets Auto (Bld) [#/Vol]Ordered By: Prince Bradford on 15-26-9544Oysvjxtty (Bld) [#/Vol]264 10*3/rV039-462NnbcjlwnvMansfield HospitalRBC Auto (Bld) [#/Vol]Ordered By: Prince Bradford on 33-66-2571OOC (Bld) [#/Vol]4.65 10*6/uL 3.60-5.00M[facility]field HospitalVitamin D+Metabolites [Mass/volume] in Serum or PlasmaOrdered By: Prince Bradford on 68-47-7536Vjoegkn D+Metabolites [Mass/Vol]30.4 ng/aQ38-573JejjchtflMansfield HospitalComment on above: VITAMIN D STATUS 25(OH)VITAMIN D RANGE (ng/mL) Deficient <20 Insufficient 20 to <63Udaeyjaqtv78 to 100Reference: Tobi MF,Marbella NC, Rosales RIVERS, et al. Evaluation,treatment, and prevention of vitamin D deficiency; an Endocrine Society clinical practice guideline. JCEM. 2010; 96(7):1911-30.WBC Auto (Bld) [#/Vol]Ordered By: Prince Bradford on 52-14-1366DFS (Bld) [#/Vol]4.3 10*3/uL3.8-11.6FGreene Memorial HospitalWound methicillin resistant Staphylococcus aureus (MRSA) cultureOrdered By: Prince Bradford on 09-03-2023 MRSA isol Org specific cx Ql (Unsp spec)M[facility]field HospitalXR tibia fibula RT 2V*on 77-10-4526KZ tibia fibula RT 2V*[facility] [employer] Other XR tibia fibula RT 2V*[facility] [employer] Other XR tibia fibula RT 2V*[address] [place] [address] [employer] Other XR tibia fibula RT 2V*[place], [place] [address] Other XR tibia fibula RT 2V*[facility] [employer] Other XR tibia fibula RT 2V*[facility] [employer] Other XR tibia fibula RT 2V*Patient: Janet Mccormack MR#: [id number] [employer] Other XR tibia fibula RT 2V*4123[facility] [employer] Other XR tibia fibula RT 2V*: 1960 Acct:[id number] [employer] Other XR tibia fibula RT 2V*Age/Sex: 63 / F ADM Date: 09/03/23[employer] Other XR tibia fibula RT 2V*[place] [facility] [place]: Type: [facility] [employer] Other XR tibia fibula RT 2V*Attending Dr: Prince Bradford II, MDLe Claire [facility] Other XR tibia fibula RT 2V*Copies to: Prince Bradford MD [employer] Other XR tibia fibula RT 2V*Ordering Provider: Prince Bradford MDLe Claire [facility] Other XR tibia fibula RT 2V*Date of Service: 09/03/23[place] [employer] Other XR tibia fibula RT 2V* XR/XR tibia fibula RT 2V*: History of total right knee replacementLe Claire AdultSpace Other XR tibia fibula RT 2V*([id number]) XR/XR femur RT 2V*: History of total right knee replacementProbity AdultSpace Other XR tibia fibula RT 2V*RIGHT FEMUR AND TIB-FIB - one viewLe Claire [employer] Other XR tibia fibula RT 2V*CLINICAL DATA: Follow-up right knee replacement[employer] Other XR tibia fibula RT 2V*COMPARISON: Right knee 08/15/20235 [employer] Other XR tibia fibula RT 2V*AP standing view to include the femur and tib-fib bilaterally was obtained using a long cassette.[employer] Other XR tibia fibula RT 2V*Patient has bilateral knee prostheses. These appear intact and in appropriate position.[employer] Other XR tibia fibula RT 2V*The femurs shows no acute fracture or dislocation. There is no prominent degenerative change atLe Claire [facility] Other XR tibia fibula RT 2V*either hip. There is minor sclerosis at the SI joints.[employer] Other XR tibia fibula RT 2V*The tibia and fibula on both sides show no acute fracture or dislocation. No soft tissueNoKrave-N Other XR tibia fibula RT 2V*abnormalities are present.[employer] Other xr tibia fibula RT 2V* XR/XR femur RT 2V*[employer] Other XR tibia fibula RT 2V*IMPRESSION:[employer] Other XR tibia fibula RT 2V*SATISFACTORY SINGLE VIEW ASSESSMENT OF KNEE REPLACEMENTS.[employer] Other XR tibia fibula RT 2V*NO ACUTE BONY FINDINGS INVOLVING THE FEMUR, TIBIA OR FIBULA.[employer] Other XR tibia fibula RT 2V*Impression dictated by: Gunjan Fletcher M.D.09/03/2023 2:38 PMNcarondelet health [employer] Other XR tibia fibula RT 2V*Dictation Location: [place] [address] [employer] Other XR tibia fibula RT 2V*Transcribed By: WILTON 09/03/[address] [place], [place] [address] Other xr tibia fibula RT 2V*Dictated By: Gunjan Fletcher MD 09/03/[address] [place], [place] [address] Other xr tibia fibula RT 2V*Signed By:[employer] Other xr tibia fibula RT 2V*09/03/23 1438[place] [employer] Other XR knee RT 3Von 50-65-1175ID knee RT 3VAccession #: ([id number]) XR/XR knee RT 3V - NOT FOR ER USE: History of total right knee [employer] Other XR knee RT 3VreplacementNotexas county memorial hospital [employer] Other XR knee RT 3V3 views right knee plain filmLe Claire [employer] Other XR knee RT 3VHISTORY: Right knee pain and swelling since June.[employer] Other XR knee RT 3VACUTE FINDINGS: No acute findingsLe Claire [employer] Other XR knee RT 3VDEGENERATIVE CHANGE: Unremarkable5 [employer] Other XR knee RT 3VSOFT TISSUE FINDINGS: UnremarkableWestern Missouri Mental Health CenterKrave-N Other XR knee RT 3VJOINT EFFUSION: Moderate joint effusion [employer] Other XR knee RT 3VPOSTOP CHANGES: No hardware abnormality. [employer] Other XR knee RT 3VBONE MINERALIZATION: AdequateLe Claire [employer] Other XR knee RT 3VORDER #: [id number] XR/XR knee RT 3V - NOT FOR ER USELe Claire [employer] Other XR knee RT 3VIMPRESSION: Uncomplicated right knee arthroplasty. Moderate joint effusion.[employer] Other XR knee RT 3VImpression dictated by: Noé Beck M.D.08/15/2023 12:12 [facility] [employer] Other XR knee RT 3VTranscribed By: PWS 08/15/23 1212[place] [employer] Other XR knee RT 3VDictated By: Noé Beck DO 08/15/23 1204[place] [employer] Other XR knee RT 3V110/16/22 1212[place] [employer] Other XR pelvis 1-2Von 99-89-5987KP pelvis 1-2VKettering Health [facility] [employer] Other XR pelvis 1-2VFRAdventist Health Vallejo [employer] Other XR pelvis 1-7K9542 [facility] [employer] Other XR pelvis 1-2[place]SLas [place], [place] [address]Niycm [employer] Other XR pelvis 1-2VXRCampbellton-Graceville [facility] Other XR pelvis 1-2VSChildren's Mercy [facility] Other XR pelvis 1-2VPatient: Janet Mccormack MR#: [id number] [place] [facility] Other XR pelvis 1-8G4393Hbrzk [facility] Other XR pelvis 1-2VDOB: 1960 Acct:[id number] [facility] Other XR pelvis 1-2VAge/Sex: 63 / F ADM Date: 08/15/23[place] [facility] Other XR pelvis 1-2VLoc: SOXD Room: Type: [facility] Other XR pelvis 1-2VAttending Dr: Prince Bradford II, MD [employer] Other XR pelvis 1-2VCopies to: Prince Bradford MDLe Claire [facility] Other XR pelvis 1-2VOrdering Provider: Prince Bradford MD [employer] Other XR pelvis 1-2VDate of Service: 08/15/23[place] [facility] Other xr pelvis 1-2VAccession #: ([id number]) XR/XR pelvis 1-2V: History of total right knee replacementLe Claire AdultSpace Other XR pelvis 1-2VSingle view of the pelvis plain film [place] [facility] Other xr pelvis 1-2VHISTORY: Right knee pain and swelling since JuneLe Claire [facility] Other XR pelvis 1-2VCOMPARISON: [facility] Other XR pelvis 1-2VACUTE FINDINGS: None[place] [facility] Other XR pelvis 1-2VBONY ALIGNMENT: AdequateLe [place] [facility] Other xr pelvis 1-2VSOFT TISSUES: UnremarkableLe [place] [facility] Other XR pelvis 1-2VDEGENERATIVE CHANGE:Unremarkable hips. Mild SI joint degeneration. Moderate lower lumbarLe Claire AdultSpace Other XR pelvis 1-2Vdegenerative change.[place] [facility] Other XR pelvis 1-2VINTRAPELVIC STRUCTURES: Unremarkable [place] [facility] Other xr pelvis 1-2VPOSTSURGICAL CHANGES:None[place] [facility] Other xr pelvis 1-2VORDER #: [id number] XR/XR pelvis 1-2V [facility] Other XR pelvis 1-2VIMPRESSION:Unremarkable hips. SI joint and lower lumbar degenerative change.[place] [facility] Other xr pelvis 1-2VImpression dictated by: Noé Beck M.D.08/15/2023 12:14 [facility] Other xr pelvis 1-2VDictation Location: [id number] [facility] Other xr pelvis 1-2VTranscribed By: WILTON 08/15/23 [facility] CenterSpringpadtexas county memorial hospital [facility] Other xr pelvis 1-2VDictated By: Noé Beck DO 08/15/[address] [place] [address] [employer] Other xr pelvis 1-2VSigned By:[place] [facility] Other xr pelvis 1-2V110/16/22 [facility]0[place] [facility] Other cbC AUTO DIFFon 74-17-4565ZHFE #0.0 103/ulNormal 0.0-0.1The Park[facility] HealthComment on above:Performed By: #### CBC #### [facility] [address] [place] [address] Dr. Alyssa GusmanBasophils/100 WBC (Bld)1.0 %Normal0.2-2.0[facility] Comment on above:Performed By: #### CBC #### [facility] [address] [place] [address] Dr. Alyssa Franco #0.0 103/ulNormal0.0-0.7The Parkview HealthComment on above: Performed By: #### CBC #### [facility] [address] [place] [address] Dr. Alyssa Marieosinophils/100 WBC (Bld)1.0 %Normal0.9-7.0[facility] Comment on above:Performed By: #### CBC #### [facility] [address] [place] [address] Dr. Alyssa Marierythrocyte distribution width (RBC) [Ratio]11.4 %Iawxih90.0-15.0 [facility] SystemComment on above:Performed By: #### CBC #### [facility] [address] [place] [address] Dr. Alyssa GusmanHematocrit (Bld) [Volume fraction]37.9 %Vriwup94.0-48.0[facility] SystemComment on above:Performed By: #### CBC #### [facility] [address] [place] [address] Dr. Alyssa GusmanHemoglobin (Bld) [Mass/Vol]14.6 g/gUDefukb63.0-16.0The Parkview HealthComment on above:Performed By: #### CBC #### [facility] [address] [address] [address] Alyssa Abraham #0.02 10e3/ulNormal0.00-0.03The Parkview HealthComment on above:Performed By: #### CBC #### [facility] [address] [place] [address] Dr. Alyssa Abraham %0.5 %Normal0.0-0.5The Parkview HealthComment on above: Performed By: #### CBC #### [facility] [address] [place] [address] Dr. Alyssa Galdamez #1.0 103/ulCritically low1.2-3.8[facility] Comment on above:Performed By: #### CBC #### [facility] [address] [place] [address] Dr. Alyssa Posadashocytes/100 WBC (Bld)24.6 %Unvjsr13.5-60.0The [facility] HealthComment on above:Performed By: #### CBC #### [facility] [address] [place] [address] Dr. Alyssa CabreraUAL DIFF REQNONormalThe Parkview HealthComment on above: Performed By: #### CBC #### [facility] [address] [address] [address] Alyssa Key (RBC) [Entitic mass]29.7 qmZvuvgq42.7-34.0The [facility] HealthComment on above:Performed By: #### CBC #### [facility] [address] [place] [address] Dr. Alyssa Key (RBC) [Mass/Vol]38.5 g/dLCritically high29.9-35.2The Parkview HealthComment on above:Performed By: #### CBC #### [facility] [address] [place] [address] Dr. Alyssa KeyV (RBC) [Entitic vol]77.2 fLCritically low81.0-99.0The [facility] on above:Performed By: #### CBC #### [facility] [address] [place] [address] Dr. Alyssa Hwang #0.5 103/ulNormal0.3-0.8The Parkview HealthComment on above:Performed By: #### CBC #### [facility] [address] [place] [address] Dr. Alyssa Humphriesocytes/100 WBC (Bld)12.1 %Critically high1.7-12.0The [facility] on above:Performed By: #### CBC #### [facility] [address] [place] [address] Dr. Alyssa Dela Cruz #2.4 103/ulNormal1.4-6.5The [facility] on above:Performed By: #### CBC #### [facility] [address] [place] [address] Dr. Alyssa Vidalutrophils/100 WBC (Bld)60.8 %Vbtyqd18.0-75.0The [facility] on above:Performed By: #### CBC #### [facility] [address] [place] [address] Dr. Alyssa Ugartelet mean volume (Bld) [Entitic vol]9.7 fLNormal9.5-13.5The [facility] on above:Performed By: #### CBC #### [facility] [address] [place] [address] Dr. Alyssa GusmanPLT314 103/nlFvzljr122-264Uyg [facility] on above: Performed By: #### CBC #### [facility] [address] [place] [address] Dr. Alyssa GusmanRBC4.91 106/ulNormal4.20-5.40The [facility] on above:Performed By: #### CBC #### [facility] [address] [place] [address] Dr. Alyssa GusmanWBC3.9 103/ulCritically low4.0-11.0The Parkview HealthComment on above:Performed By: #### CBC #### [facility] [address] [place] [address] Dr. Alyssa GusmanMAGNESIUMon 38-29-7073Bvpftwonc [Mass/Vol]1.7 mg/dLCritically low 1.8-2.4The [facility] HealthComment on above:Performed By: #### MG, CMP #### [facility] [address] [place] [address] Dr. Alyssa GusmanPROF 14(COMP METB)on 66-97-1780Oflmraz [Mass/Vol]3.8 g/dLNormal 3.4-5.0The [facility] HealthComment on above:Performed By: #### MG, CMP #### [facility] [address] [place] [address] Dr. Alyssa GusmanAlbumin/Globulin [Mass ratio]1.2 {ratio}NormalThe Parkview HealthComment on above:Performed By: #### MG, CMP #### [facility] [address] [place] [address] Dr. Alyssa Richardson [Catalytic activity/Vol]74 U/BNmyhtc94-279Tgo [facility] Hospitalment on above:Performed By: #### MG, CMP #### [facility] [address] [place] [address] Dr. Alyssa Mcbride [Catalytic activity/Vol]46 U/PXqxdko66-23Mwt [facility] Hospitalment on above:Performed By: #### MG, CMP #### [facility] [address] [place] [address] Dr. Alyssa Burleson gap [Moles/Vol]10.4 mmol/LNormalThe [facility] on above:Performed By: #### MG, CMP #### [facility] [address] [place] [address] Dr. Alyssa Blanca [Catalytic activity/Vol]33 U/VRrcrca12-81Yrg Bob HospitalComment on above:Performed By: #### MG, CMP #### [facility] [address] [place] [address] Dr. Alyssa GusmanBilirubin [Mass/Vol]0.8 mg/dLNormal0.2-1.0[facility] Comment on above:Performed By: #### MG, CMP #### [facility] [address] [place] [address] Dr. Alyssa GusmanCalcium [Mass/Vol]9.2 mg/dLNormal8.5-10.1The [facility] Comment on above:Performed By: #### MG, CMP #### [facility] [address] [place] [address] Dr. Alyssa GusmanChloride [Moles/Vol]82 mmol/LCritically ron85-475Eft [facility] HealthComment on above:Performed By: #### MG, CMP #### [facility] [address] [place] [address] Dr. Alyssa GusmanCO2 [Moles/Vol]32.4 mmol/LCritically high21.0-32.0The [facility] HealthComment on above:Performed By: #### MG, CMP #### [facility] [address] [place] [address] Dr. Alyssa GusmanCreatinine [Mass/Vol]1.42 mg/dLCritically high0.55-1.02The [facility] HealthComment on above:Performed By: #### MG, CMP #### [facility] [address] [place] [address] Dr. Alyssa MarieGFR-AF HJNLJRCT99 mL/min/1.09l6Utwynpzxzu low>=60The [facility] HealthComment on above:Performed By: #### MG, CMP #### [facility] [address] [place] [address] Dr. Alyssa MarieGFR-NON AF NCTDJFJU18 mL/min/1.54p7Bwgyodezls low>=60The [facility] HealthComment on above:Performed By: #### MG, CMP #### [facility] [address] [place] [address] Dr. Alyssa GusmanGlobulin (S) [Mass/Vol]3.3 g/dLNormKeenan Private HospitalComment on above:Performed By: #### MG, CMP #### [facility] [address] [place] [address] Dr. Alyssa GusmanGlucose [Mass/Vol]112 mg/dLCritically hcgt62-755Mkx [facility] HealthComment on above:Performed By: #### MG, CMP #### [facility] [address] [place] [address] Dr. Alyssa GusmanPotassium [Moles/Vol]2.8 mmol/LCritically low3.5-5.1The [facility] HealthComment on above:Performed By: #### MG, CMP #### [facility] [address] [place] [address] Dr. Alyssa GusmanProtein [Mass/Vol]7.1 g/dLNormal6.4-8.2The [facility] Comment on above:Performed By: #### MG, CMP #### [facility] [address] [place] [address] Dr. Alyssa GusmanSodium [Moles/Vol]122 mmol/LCritically kuq306-354Rzn [facility] HealthComment on above:Performed By: #### MG, CMP #### [facility] [address] [place] [address] Dr. Alyssa GusmanUrea nitrogen [Mass/Vol]15.0 mg/dLNormal7.0-18.0The [facility] HealthComment on above:Performed By: #### MG, CMP #### [facility] [address] [place] [address] Dr. Alyssa GusmanUrea nitrogen/Creatinine [Mass ratio]10.6 mg/mgNoBethesda North HospitalComment on above:Performed By: #### MG, CMP #### [facility] [address] [place] [address] Dr. Alyssa GusmanT4 LABCORPon 10-03-8846T0 [Mass/Vol]11.1 ug/dLNormal4.5-12.0The [facility] HealthComment on above:Performed By: #### T4LC #### [facility] [address] [place] [address] Dr. Alyssa Larson AUTO DIFFon 63-43-1842VRCV #0.0 103/ulNormal0.0-0.1The [facility] HealthComment on above:Performed By: #### CBC #### [facility] [address] [place] [address] Dr. Alyssa GusmanBasophils/100 WBC (Bld)0.9 %Normal0.2-2.0The [facility] Comment on above:Performed By: #### CBC #### [facility] [address] [place] [address] Dr. Alyssa Franco #0.1 103/ulNormal0.0-0.7The [facility] HealthComment on above: Performed By: #### CBC #### [facility] [address] [place] [address] Dr. Alyssa Marieosinophils/100 WBC (Bld)3.4 %Normal0.9-7.0[facility] Comment on above:Performed By: #### CBC #### [facility] [address] [place] [address] Dr. Alyssa aMrierythrocyte distribution width (RBC) [Ratio]12.4 %Rzhcce28.0-15.0 The [facility] HealthComment on above:Performed By: #### CBC #### [facility] [address] [place] [address] Dr. Alyssa GusmanHematocrit (Bld) [Volume fraction]39.3 %Beldum11.0-48.0The [facility] HealthComment on above:Performed By: #### CBC #### [facility] [address] [place] [address] Dr. Alyssa GusmanHemoglobin (Bld) [Mass/Vol]13.2 g/wFRhulhx60.0-16.0The [facility] HealthComment on above:Performed By: #### CBC #### [facility] [address] [place] [address] Dr. Alyssa Abraham #0.00 10e3/ulNormal0.00-0.03The [facility] HealthComment on above:Performed By: #### CBC #### [facility] [address] [place] [address] Dr. Alyssa Abraham %0.0 %Normal0.0-0.5The [facility] HealthComment on above: Performed By: #### CBC #### [facility] [address] [place] [address] Dr. Alyssa Galdamez #1.2 103/ulNormal1.2-3.8The [facility] HealthComment on above:Performed By: #### CBC #### [facility] [address] [place] [address] Dr. Alyssa Posadashocytes/100 WBC (Bld)34.1 %Yxnxdv83.5-60.0The [facility] HealthComment on above:Performed By: #### CBC #### [facility] [address] [place] [address] Dr. Alyssa CabreraUAL DIFF REQNONormalThe [facility] HealthComment on above: Performed By: #### CBC #### [facility] [address] [place] [address] Dr. Alyssa Wilson (RBC) [Entitic mass]30.2 jpUsnxoh53.7-34.0The [facility] HealthComment on above:Performed By: #### CBC #### [facility] [address] [place] [address] Dr. Alyssa Key (RBC) [Mass/Vol]33.6 g/nMFzvknb38.9-35.2The [facility] HealthComment on above:Performed By: #### CBC #### [facility] [address] [place] [address] Dr. Alyssa Key (RBC) [Entitic vol]89.9 kILgjazh43.0-99.0The [facility] HealthComment on above:Performed By: #### CBC #### [facility] [address] [place] [address] Dr. Alyssa Hwang #0.4 103/ulNormal0.3-0.8The [facility] HealthComment on above:Performed By: #### CBC #### [facility] [address] [place] [address] Dr. Alyssa Humphriesocytes/100 WBC (Bld)11.4 %Normal1.7-12.0[facility] Comment on above:Performed By: #### CBC #### [facility] [address] [place] [address] Dr. Alyssa Dela Cruz #1.8 103/ulNormal1.4-6.5The [facility] HealthComment on above:Performed By: #### CBC #### [facility] [address] [place] [address] Dr. Alyssa Vidalutrophils/100 WBC (Bld)50.2 %Upxqbg70.0-75.0The [facility] HealthComment on above:Performed By: #### CBC #### [facility] [address] [place] [address] Dr. Alyssa Ugartelet mean volume (Bld) [Entitic vol]10.5 fLNormal9.5-13.5The [facility] HealthComment on above:Performed By: #### CBC #### [facility] [address] [place] [address] Dr. Alyssa GusmanPLT241 103/qoLvzjdb135-414Nbh [facility] HealthComment on above: Performed By: #### CBC #### [facility] [address] [place] [address] Dr. Alyssa GusmanRBC4.37 106/ulNormal4.20-5.40The [facility] HealthComment on above:Performed By: #### CBC #### [facility] [address] [place] [address] Dr. Alyssa GusmanWBC3.5 103/ulCritically low4.0-11.0The [facility] HealthComment on above:Performed By: #### CBC #### [facility] [address] [place] [address] Dr. Yilan ChangMG MAMM SCREEN 3D DEX CADon 90-57-1477SA MAMM SCREEN 3D DEX CAD Patient: JANET MCCORMACK Exam Date: 02/07/2022 : 1960 Gender:F Ordering : DR BROOKS THOMSON D.O. Admission #: [id number] Family : Order #: [id number] CLICK HERE TO VIEW EXAM RADIOLOGY REPORT [...] ovarian cancer at age 35. LOCATION: [facility] BREAST COMPOSITION: Scattered areas fibroglandular density. FINDINGS: [...] by: Jaxson Foster MD on 02/07/2022 at 10:22NoBethesda North HospitalPROF 14(COMP METB)on 44-38-1065Iufaxjh [Mass/Vol]3.5 g/dLNormal3.4-5.0The [facility] HealthComment on above:Performed By: #### TSH, CMP #### [facility] [address] [address] [address] Alyssa GusmanAlbumin/Globulin [Mass ratio]1.0 {ratio}NormalThe Parkview HealthComment on above:Performed By: #### TSH, CMP #### [facility] [address] [place], [place] [address] Dr. Alyssa CastilloP [Catalytic activity/Vol]68 U/SWruohg64-382Qns [facility] HealthComment on above:Performed By: #### TSH, CMP #### [facility] [address] [address] [address] Alyssa Mcbride [Catalytic activity/Vol]39 U/WCuoivm98-29Tvr [facility] HealthComment on above:Performed By: #### TSH, CMP #### [facility] [address] [address] [address] Alyssa Schillingon gap [Moles/Vol]13.7 mmol/LNormalHolzer Health System Comment on above:Performed By: #### TSH, CMP #### [facility] [address] [place] [address] Dr. Alyssa GusmanAST [Catalytic activity/Vol]22 U/LHsiony21-09Kyc [facility] HealthComment on above:Performed By: #### TSH, CMP #### [facility] [address] [place] [address] Dr. Alyssa GusmanBilirubin [Mass/Vol]0.4 mg/dLNormal0.2-1.0[facility] Comment on above:Performed By: #### TSH, CMP #### [facility] [address] [place] [address] Dr. Alyssa GusmanCalcium [Mass/Vol]8.5 mg/dLNormal8.5-10.1[facility] Comment on above:Performed By: #### TSH, CMP #### [facility] [address] [place] [address] Dr. Alyssa GusmanChloride [Moles/Vol]100 mmol/LPscest37-423KugHolzer Health System Comment on above:Performed By: #### TSH, CMP #### [facility] [address] [place] [address] Dr. Alyssa GusmanCO2 [Moles/Vol]27.5 mmol/WMpbwtg18.0-32.0[facility] Comment on above:Performed By: #### TSH, CMP #### [facility] [address] [place] [address] Dr. Alyssa GusmanCreatinine [Mass/Vol]0.79 mg/dLNormal0.55-1.02The [facility] HealthComment on above:Performed By: #### TSH, CMP #### [facility] [address] [place] [address] Dr. Alyssa MarieGFR-AF RWANDAN>60Normal>=60The [facility] HealthComment on above:Performed By: #### TSH, CMP #### [facility] [address] [place] [address] Dr. Alyssa MarieGFR-NON AF RWANDAN>60Normal>=60[facility] SystemComment on above:Performed By: #### TSH, CMP #### [facility] [address] [place] [address] Dr. Alyssa GusmanGlobulin (S) [Mass/Vol]3.4 g/dLNormalThe [facility] HealthComment on above:Performed By: #### TSH, CMP #### [facility] [address] [place] [address] Dr. Alyssa GusmanGlucose [Mass/Vol]110 mg/dLCritically kjnf29-765CuzHolzer Health SystemComment on above:Performed By: #### TSH, CMP #### [facility] [address] [place] [address] Dr. Alyssa GusmanPotassium [Moles/Vol]4.2 mmol/LNormal3.5-5.1[facility] Comment on above:Performed By: #### TSH, CMP #### [facility] [address] [place] [address] Dr. Alyssa GusmanProtein [Mass/Vol]6.9 g/dLNormal6.4-8.2[facility] Comment on above:Performed By: #### TSH, CMP #### [facility] [address] [place] [address] Dr. Alyssa GusmanSodium [Moles/Vol]137 mmol/FPdcqod754-082Loj [facility] Comment on above:Performed By: #### TSH, CMP #### [facility] [address] [place] [address] Dr. Alyssa GusmanUrea nitrogen [Mass/Vol]15.0 mg/dLNormal7.0-18.0The [facility] HealthComment on above:Performed By: #### TSH, CMP #### [facility] [address] [place] [address] Dr. Alyssa Peng nitrogen/Creatinine [Mass ratio]18.9 mg/mgUniversity Hospitals Parma Medical CenterComment on above:Performed By: #### TSH, CMP #### [facility] [address] [place] [address] Dr. Alyssa Wilson 99-16-5825ZBB2.298 uIU/mLNormal0.358-3.740[facility] Health SystemComment on above:Performed By: #### TSH, CMP #### [facility] [address] [place] [address] Dr. Alyssa [facility]clure [facility] BELOWUniversity Hospitals Parma Medical CenterComment on above: Result Comment: <0.34 UIU/ml HYPERTHYROID 0.34-5.60 UIU/ml EUTHYROID >5.60 UIU/ml HYPOTHYROIDPerformed By: #### TSH, CMP #### [facility] [address] [place] [address] Dr. Alyssa Gusman Vital Signs Date TimeVital SignValuePerforming ZesotumobKcnhqzcz88-57-4779 09:08-0400 Diastolic blood rxwpqmcy87 mm[Hg]Brooks [employer] DO Work Phone: [phone] [place], [place] 9722310-17-2025 09:08-0400 Systolic blood yhqgkqjs614 mm[Hg]Brooks House DO Work Phone: [phone] [place], [place] 9722306-17-2025 13:02-0400 Body pdxerw087.4 [facility]oteauharyony House DO Work Phone: [phone]-[facility]06-17-2025 13:02-0400 Body mass index (BMI) [Ratio]36.7 kg/k1Psbswxy House DO Work Phone: [phone] [place], [place] 9722306-17-2025 13:02-0400 Body dwlkig97.27 kgChavamshi House DO Work Phone: [facility]01-18-2024 07:40-0500 Body pkwrwinziwq08.4 [degF]MD Prince Bradford II Work Phone: [facility]01-18-2024 07:40-0500 Diastolic blood amwfbgre60 mm[Hg]MD Prince Bradford II Work Phone: [facility]01-18-2024 07:40-0500 Heart rate86 /minMD Prince Rustle II Work Phone: [facility]01-18-2024 07:40-0500 Respiratory rate20 /minMD Prince Mataisle II Work Phone: [facility]01-18-2024 07:40-0500 SaO2% (BldA) [Mass fraction]93 %MD Prince Bradford II Work Phone: [facility]01-18-2024 07:40-0500 Systolic blood pgpatayq941 mm[Hg]MD Prince Bradford II Work Phone: [facility]01-17-2024 12:27-0500 Body iajeoz529.4 cmMD Prince Sanchez II Work Phone: [facility]01-16-2024 18:05-0500 Inhaled oxygen flow rate1 L/minMD Prince [place] II Work Phone: [facility]01-16-2024 11:52-0500 Body mass index (BMI) [Ratio]38.7 kg/m2MD Prince [place] II Work Phone: [facility]01-16-2024 11:52-0500 Body veceei18.9 kgMD Prince Sanchez II Work Phone: [facility]12-15-2023 09:00-0500 Body lprikp284.4 cmRtorrey Mataisle II Other [place] [facility] Other 12-15-2023 09:00-0500Body mass index (BMI) [Ratio]37.1 kg/m2Wmeqql Sanchez II Other [employer] [facility] Other 12-15-2023 09:00-0500Body rxrmti50.18 kgRobert [place] II Other [employer] Other Encounters Encounter DateEncounter TypeCare ProviderFacilityStart: 06-22-2025 End: 91-32-3044uxswadcpvrKFZZYJS P HOUSEFacility:[facility] ClinicStart: 06-17-2025 End: 66-74-4299vvedwncnmlKphldnu House DO Work Phone: -[facility] [place]vueStart: 06-17-2025 End: 28-27-6485Jglwpgd encounter procedureRobdanish Muller MD-[facility] [place] Work Phone: Start: 06-16-2025 End: 89-72-3769kbrpceqngkOxgyqsn Yohana AuxierFacility:[facility] Centertart: 06-16-2025 End: 15-42-2561garrzcbuhmWxpsfai Marie Auxier PLASTIC CNC MACHINE OPERATOR-CNPFacility:[facility] CenterderStart: 06-01-2025 End: 14-76-6327Eyqaade encounter procedureRobdanish Muller MD-CT [facility] [place] Work Phone: Start: 06-01-2025 End: 58-01-8034bnjulthqdwVswhgcm House DO Work Phone: [facility] Work Phone: Start: 05-23-2025 End: 14-73-2817jidxpooacdFMFFHBZ P HOUSEFacility:[facility] ClinicStart: 05-18-2025 ambulatoryDO BROOKS P HOUSEFacility:[facility] ClinicStart: 04-21-2025 End: 95-50-9586zpehqesbngYUEYVPN P HOUSEFacility:[facility] ClinicStart: 03-31-2025 End: 66-85-2532drfuawvlncPezfhwr House DO Work Phone: [facility] Work Phone: Start: 03-31-2025 End: 63-61-3986Yaaczfp encounter procedureCoqian Crook MDLower [facility] Work Phone: Start: 03-21-2025 End: 04-32-6900jvnoalnyrdFSKGCUD P HOUSEFacility:[facility] ClinicStart: 02-16-2025 ambulatoryDO BROOKS P HOUSEFacility:[facility] ClinicStart: 02-15-2025 End: 39-36-4919Waumqkn encounter procedureCoqian Crook MDLower [facility]ucks Hospital Work Phone: Start: 02-14-2025 End: 47-12-2078wzibatkgbhLUMZHDR P HOUSEFacility:[facility] ClinicStart: 01-20-2025 End: 29-34-4766sbucyhezyyOTWHAMT P HOUSEFacility:[facility] ClinicStart: 12-20-2024 End: 35-57-4521pixtpmenhtCLOGCFY P HOUSEFacility:[facility] CENTER ClinicStart: 11-17-2024 ambulatoryCHARLES P HOUSEFacility:[facility] ClinicStart: 11-11-2024 End: 94-68-2366njndafvdkwOmmszmg House DO Work Phone: [facility] Work Phone: Start: 11-11-2024 End: 40-58-4607Kknmxhs encounter procedureCharles House DO Work Phone: [facility] Work Phone: Start: 11-03-2024 End: 64-23-4588eylwjcaelsZxbpdlq House DO Work Phone: [facility] Work Phone: Start: 11-03-2024 End: 88-83-6482Zjkizfn encounter procedureCharles House DO Work Phone: [facility] Work Phone: Start: 10-22-2024 End: 64-27-7392vdnxwmkrsyOJCCHHC P HOUSEFacility:[facility] ClinicStart: 09-22-2024 End: 15-77-8603kpkcajsjcpBSNNIXG P HOUSEFacility:[facility] ClinicStart: 09-08-2024 End: 95-32-5408Lkmnzzh encounter procedureCharles House DO Work Phone: [facility] Work Phone: Start: 09-08-2024 End: 07-57-5044omwvqyzgvrZzmqzbi House DO Work Phone: [facility] Work Phone: Start: 61-41-9866zcxadcmzrgLA BROOKS P HOUSE Facility:[facility] ClinicStart: 07-21-2024 End: 68-12-4540yemkzhuwcwCORWFUX P HOUSEFacility:[facility] GroupStart: 03-03-2024 End: 61-64-0350tfpiugzwtjMQJBKYH A NIANot AvailableStart: 12-30-2023 End: 90-77-0868cagzwncggbMMERMOH A ORIONILLNot AvailableStart: 12-10-2023 End: 88-14-9851csmrftxcsxTC Brooks Pennington Work Phone: [facility] Work Phone: Start: 12-10-2023 End: 63-06-8491Hpvzxgz encounter procedureDO Brooks Pennington Work Phone: [facility] Work Phone: Start: 12-10-2023 End: 22-94-8446hnbmrlptfxZO Brooks Pennington Work Phone: [facility] Work Phone: Start: 12-10-2023 End: 43-74-3324Wzpwlba encounter procedureDO Brooks Pennington Work Phone: [facility] Start: 10-29-2023 End: 05-14-9706Cmgdzex encounter procedureMD Prince [place] II Work Phone: [facility] Work Phone: Start: 10-01-2023 End: 75-98-3169pqdflhyopbQrrsgnkx [place] Other [employer] Other Start: 04-36-8833Bwzwfd follow up visit related to original pxMary AllenFPG [facility] OrthopedicsStart: 93-13-9292Ltq-patient / Non-visitMD Prince Mataisle II Work Phone: [facility] Work Phone: Start: 09-12-2023(Prolonged) Prolonged ServicesRobert [place] IIFPG [facility] OrthopedicsStart: 09-12-2023 End: 11-52-2617dryjfgygvsGjkaak [place] Other [employer] Other Start: 30-93-7423Neglwqfwj encounterRobert [place] II [facility] OrthopedicsStart: 09-08-2023 End: 71-94-2329pypklwdukaYhmows Sanchez II Other [employer] Other Start: 38-10-5136Znabrqeed encounterRobert [place] II [facility] OrthopedicsStart: 24-65-6528Wlygnsburo RecurringMD Prince [place] II Work Phone: [facility]-Physical Therapy [place] CreekStart: 09-04-2023 End: 87-22-3151eccmqxbkepVB Brooks Thomson Work Phone: [facility] Work Phone: Start: 09-04-2023 End: 12-36-4550Psjtznj encounter procedureDO Brooks Thomson Work Phone: [facility]-Kvi-Lghjmmns Testing Work Phone: Start: 64-41-8413Piablb outpatient visit 40 minutes Prince Sanchez IIFPG [facility] OrthopedicsStart: 12-87-7797Cghjfbwnu encounter Prince [place] IIFPG [facility] OrthopedicsStart: 09-03-2023 End: 85-15-6007votxzyvhrhRQ Brooks Thomson Work Phone: [facility] Work Phone: Start: 09-03-2023 End: 14-69-6498Jfnpudh encounter procedureDO Brooks Thomson Work Phone: [facility] CenterStart: 53-47-3389Vocwqt outpatient new 45 minutesRobert Sanchez IIFPG [place] OrthopedicsStart: 08-15-2023 End: 16-82-4018zxaexfjgswNyehfl [place] Other [employer] Other Start: 08-15-2023 End: 08-79-6576Hznjxzw encounter procedureMD Prince [place] II Work Phone: [facility] Start: 08-04-2023 End: 14-48-4938icenkdthngNWFLORIAN VALDEZ AvailableStart: 09-09-2022 End: 76-05-6534jcgftxyowkPI CHARLES HOUSEFacility:Y1Mejks: 05-10-2022 End: 64-82-3264wvwhvxcvebMJ CHARLES HOUSEFacility:X8Ieknt: 02-07-2022 End: 02-64-3087oltyrgwiyaKJ CHARLES HOUSEFacility:R5Yppum: 02-04-2017 End: 69-43-7416KxojebqzgsWLBXF M JOHNSONFacility:[facility] Procedures DateProcedureProcedure DetailPerforming ClinicianStart: 68-32-0656PC of right kneeCharmanchester memorial hospital House DO Work Phone: Start: 93-24-5187R-ray of right knee, three views Brooks House DO Work Phone: Start: 46-90-0166F-ray of right knee, two viewsCharmanchester memorial hospital House DO Work Phone: Start: 96-24-9296Sescj X-ray of right femurDO [facility] Work Phone: Start: 59-99-5380P-ray of right kneeDO [facility] Work Phone: Start: 99-63-6746Aoyat X-ray of right tibia and right fibulaDO [facility] Work Phone: Start: 99-34-9753X-ray of right kneeMD Prince Mataesteban KELLY Work Phone: Start: 54-59-0972Hlxvcotdehy resistant Staphylococcus aureus cultureMD Prince Sanchez KELLY Work Phone: Start: 81-16-9370Veqfa X-ray of right femurDO [facility] Work Phone: Start: 83-83-6526Uqmlu X-ray of right tibia and right fibulaDO [facility] Work Phone: Start: 53-79-4770T-ray of right kneeMD Prince Mataesteban KELLY Work Phone: H/O: artificial jointAftercare following joint replacementMD Prince Mataisle II Work Phone: History of operative procedure on kneeHistory of right knee joint replacementCharmanchester memorial hospital House DO Work Phone: History of operative procedure on kneeHistory of right knee joint replacementPrince Muller MD Plan of Treatment DateCare ActivityDetailAuthorStart: 39-23-8426P-ray of left knee, four viewsXR knee LT 4V*[facility]: 96-93-3063YH Knee - left 4 ViewsPaulding County Hospitaltart: 12-91-3282K-ray of right knee, three viewsXR knee RT 3V - NOT FOR ER USEPaulding County Hospitaltart: 15-12-6910KK Knee - right 3 ViewsPaulding County Hospitaltart: 49-88-8018E-ray of right knee, two viewsXR knee RT 2VPaulding County Hospitaltart: 35-59-4735AI Knee - right 2 [facility] Start: 97-18-1282Lhmdc X-ray of right femurXR femur RT 2V*[facility]: 93-75-7374W-ray of right kneeXR knee RT 2VPaulding County Hospitaltart: 14-19-0901LO Femur - right 2 [facility]: 44-72-1506QE Knee - right 2 [facility]: 14-93-3161Hvvti X-ray of right tibia and right fibulaXR tibia fibula RT 2V*[facility]: 13-07-8425UM Tibia and Fibula - right 2 [facility]: 26-32-6187NkjoetumqPaulding County Hospitaltart: 52-03-3485Aqozmcjl to rehabilitation physicianPaulding County Hospitaltart: 09-16-2023 Referral to clinical allergistPaulding County Hospitaltart: 09-16-2023 Hospital admissionPaulding County Hospitaltart: 59-58-0926GohxpgcqjPaulding County Hospitaltart: 38-29-3830CohsyjuenPaulding County Hospitaltart: 11-88-3784Krnrahfxrqx resistant Staphylococcus aureus cultureMRSA Culture [facility]: 83-13-3496QXUG CultureMRSA Culture [facility] HospitalCotinine [Mass/volume] in Serum or Plasma [facility] HospitalFungus identified in Unspecified specimen by CultureMansfield HospitalMethicillin resistant Staphylococcus aureus [Presence] in Unspecified specimen by Organism specificcultureMansfield HospitalNicotine [Mass/volume] in Serum or PlasmaMansfield HospitalPatient Jxkaafydu7Q Prevana Plus 125 TherapyL[facility] Work Phone: Patient [facility] Work Phone: Immunizations Immunization DateImmunizationNotesCare EsfskjpxZoihdayl06-60-4294AHPKL-55 (MODERNA) [phone] 12Y and olderDO Brooks House Work Phone: [phone] [place], [place] 9722311-01-2022COVID-19 mRNA Bivalent Booster (Moderna)DO Brooks House Work Phone: [phone] [place], [place] 9722311-30-2021COVID-19 mRNA-1273 (Moderna)DO Brooks House Work Phone: [phone] [place], [place] 9722304-10-2021COVID-19 mRNA-1273 (Moderna)DO Brooks House Work Phone: [phone])[facility] [place], [place] 9722303-13-2021COVID-19 mRNA-1273 (Moderna)DO Brooks House Work Phone: [phone] [place] [address] Payers DatePayer CategoryPayerPolicy [id number]-[id number] Health [id number] 2.0.1.256215.3.57[id number] 2..1.322921.3.57[id number] 2..1.579481.3.57[id number] 2.0.1.128202.3.57[id number] 2.840.1.987673.3.57[id number] 2.840.1.856730.3.57[id number] 2.16.840.1.205194.3.57[id number] 2.16.840.1.352293.3.57[id number] 2.16.840.1.565236.3.57[id number] 2.16.840.1.041736.3.57[id number] 2.16.840.1.041745.3.57[id number] 2.16.840.1.016386.3.57[id number] 2.16.840.1.99[id number] i6c77vz4-09d0-9d96-[id number] 2.16.840.1.6[id number] 2.16.840.1.933452.3.579.2.531 [id number] 2.16.840.1.3[id number] 2.16.840.1.5[id number] 2.16.840.1.178552.3.579.2.531 Social History DateTypeDetailFacilityUnknown if ever smokedLe [place] [employer] Other Start: 09-01-1966 End: 98-64-7605Cnk Assigned At [facility] Other Start: 25-93-1394Jli Assigned At [facility]: 09-04-2023 End: 15-50-9259Hllqyjt smoking status NHISEx-smoker (finding)[facility]: 09-08-2024 End: 81-18-0909XkqMlveej (finding)[facility] Medical Equipment Procedure CodeEquipment CodeEquipment Original TextEquipment IdentifierDates Revision total knee arthroplastyOrthopaedic cement, non-medicated ()[id number] FDAStart: 81-84-6161Zmtfrrsw total knee arthroplastyKnee arthroplasty wedge()[id number] FDAStart: 26-85-7798Ykqqjrpw total knee arthroplastyUncoated knee femur prosthesis, metallic()[id number] FDAStart: 24-45-3014Wubrtnpc total knee arthroplastyUncoated knee tibia prosthesis, metallic()[id number])[id number] FDAStart: 73-58-0035Tddfcstj total knee arthroplastyKnee femur stem prosthesis ()[id number] FDAStart: 84-09-3589Dwpxqcee total knee arthroplastyKnee femur stem prosthesis()[id number])[id number] FDAStart: 76-23-7257Dlhougjr total knee arthroplastyTibial insert ()[id number] FDAStart: 49-57-6431Eoxwsslf total knee arthroplastyKnee arthroplasty wedge()[id number](17)[id number])[id number] FDA Start: 84-95-2340Wsdtdofe total knee arthroplastyKnee arthroplasty wedge ()[id number]()[id number] FDAStart: 09-16-2023 Clinical Notes 05-10-2022 to 07-02-2025 Note Date & ArapEqmqMxmgjmgi36-68-8033 NoteEntered by BROOKS HTOMSON DO on July 02, 2025 16:58:56 EDT From: BROOKS THOMSON DO [id number] Sent: 07/02/2025 16:58:56 EDT Subject: Medication Management Submitted: Complete:levothyroxine (levothyroxine 88 mcg (0.088 mg) oral tablet) Signed by BROOKS THOMSON DO 07/02/2025 16:58:00 EDT Approved with modifications: levothyroxine (LEVOTHYROXINE 100 MCG TABLET) TAKE 1 TABLET BY MOUTH ON FRIDAY,FRIDAY,FRIDAY,FRIDAY Qty: 90 tab(s) Days Supply: 90 Refills: 1 Substitutions Allowed [id number] From: [facility] [address] To: BROOKS THOMSON DO Sent: July 01, 2025 11:41:07 PM CDT Subject: Medication Management Due: July 02, 2025 12:16:19 AM CDT On Hold Pending Signature Dispensed Drug: levothyroxine (levothyroxine 100 mcg (0.1 mg) oral tablet), TAKE 1 TABLET BY MOUTH ON FRIDAY,FRIDAY,FRIDAY,FRIDAY Quantity: 90 tab(s) Days Supply: 90 Refills: 1 Substitutions [facility]owed [facility] Note Entered by BROOKS THOMSON DO on June 08, 2025 08:23:18 EDT From: BROOKS THOMSON DO To: [facility]/pharmacy #[id number] Sent: 06/08/2025 08:23:18 EDT Subject: Medication Management Submitted: Complete:hydrochlorothiazide-triamterene (hydrochlorothiazide-triamterene 25 mg- 37.5 mg oral tablet) Signed by BROOKS THOMSON DO 06/08/2025 08:23:00 EDT Approved with modifications: hydrochlorothiazide-triamterene (TRIAMTERENE-HCTZ 37.5-25 MG TB) TAKE 1 TABLET BY MOUTH EVERY DAY Qty: 90 tab(s) Days Supply: 90 Refills: 1 Substitutions Allowed Route To Pharmacy - [facility]/pharmacy #[id number] From: [id number] To: BROOKS THOMSON DO Sent: June 07, 2025 11:52:00 PM CDT Subject: Medication Management Due: June 08, 2025 12:11:16 AM CDT On Hold Pending Signature Dispensed Drug: hydrochlorothiazide-triamterene (hydrochlorothiazide-triamterene 25 mg-37.5 mg oraltablet), TAKE 1 TABLET BY MOUTH EVERY DAY Quantity: 90 tab(s) Days Supply: 90 Refills: 1 Substitutions Allowed Notes from [facility]: [facility]ronXoykorse14-19-3876 [place] [address] CT Scan Report Signed Patient: Janet Mccormack MR#: [id number] : 1960 Acct:[id number] Age/Sex: 64 / F ADM Date: 5 Loc: CT Room: Type: [facility] Attending Dr: Prince Bradford II, MD Copies to: Prince Bradford MD~ Ordering Provider: Prince Bradford MD Date of Service: 06/01/25 CT/CT knee RT wo con: M25.561 - Pain in right knee CT of the right knee without contrast TECHNIQUE: The CT exam was performed using one or more the following dose reduction techniques: Automated exposure control, adjustment of the MA and/or Kvaccording to patient size, or use of the iterative reconstruction technique. COMPARISON: Plain film imaging 05/31/2025 HISTORY: Fell yesterday. Knee replacement 18 months ago. Stiffness and pain with walking. Right knee arthroplasty. Adequate alignment of hardware. No hardware complication. No displaced fracture identified. Moderate joint effusion. No soft tissue hematoma. No subcutaneous air. CT/CT knee RT wo con IMPRESSION: Uncomplicated right knee arthroplasty. No acute displaced fracture. Large joint effusion. Impression dictated by: Noé Beck M.D. 06/01/2025 7:09 PM Dictation Location: RADIO-PC-20 Transcribed By: [facility] 06/01/251908 Dictated By: Noé Beck DO 06/01/251902 Signed By: 06/01/251908 [facility]09-02-2025 NoteEntered by BROOKS THOMSON DO on May 03, 2025 07:41:33 EDT From: BROOKS THOMSON DO To: [facility]/pharmacy #[id number] Sent: 05/03/2025 07:41:33 EDT Subject: Medication Management Submitted: Complete:diclofenac (diclofenac sodium 75 mg oral delayed release tablet) Signed by BROOKS THOMSON DO 05/03/2025 07:41:00 EDT Approved with modifications: diclofenac (DICLOFENAC SOD EC 75 MG TAB) TAKE 1 TABLET BY MOUTH TWICE A DAY Qty: 60 tab(s) Days Supply: 30 Refills: 5 Substitutions Allowed Route To Pharmacy - [facility]/pharmacy #[id number] From: [facility] To: BROOKS THOMSON DO Sent: May 02, 2025 11:27:46 PM CDT Subject: Medication Management Due: May 03, 2025 12:02:36 AM CDT On Hold Pending Signature Dispensed Drug: diclofenac (diclofenac sodium 75 mg oral delayed release tablet), TAKE 1 TABLET BY MOUTH TWICE A DAY Quantity: 60 tab(s) Days Supply: 30 Refills: 5 Substitutions Allowed Notes [facility]ronYyzzclec68-78-9716 Note Entered by BROOKS THOMSON DO on April 17, 2025 09:25:30 EDT From: BROOKS THOMSON DO To: [id number] Sent: 04/17/2025 09:25:30 EDT Subject: Medication Management Submitted: Complete:levothyroxine (levothyroxine 100 mcg (0.1 mg) oral tablet) Signed by BROOKS THOMSON DO 04/17/2025 09:25:00 EDT Approved with modifications: levothyroxine (LEVOTHYROXINE 88 MCG TABLET) TAKE 1 TABLET BY MOUTH ON FRIDAY, FRIDAY & FRIDAY Qty: 36 tab(s) Days Supply: 84 Refills: 5 Substitutions [id number] From: [id number] To: BROOKS THOMSON DO Sent: April 16, 2025 11:41:30 PM CDT Subject: Medication Management Due: April 17, 2025 12:25:07 AM CDT On Hold Pending Signature Dispensed Drug: levothyroxine (levothyroxine 88 mcg (0.088 mg) oral tablet), TAKE 1 TABLET BY MOUTHON FRIDAY, FRIDAY & FRIDAY Quantity: 36 tab(s) Days Supply: 84 Refills: 4 Substitutions Allowed Notes from [facility]ronGkwkkkbx99-77-5420 Note Entered by BROOKS THOMSON DO on April 10, 2025 17:16:19 EDT From: BROOKS THOMSON DO To: [facility]/pharmacy #[id number] Sent: 04/10/2025 17:16:19 EDT Subject: Medication Management Submitted: Complete:cyclobenzaprine (cyclobenzaprine 5 mg oral tablet) Signed by BROOKS THOMSON DO 04/10/2025 17:16:00 EDT Approved with modifications: cyclobenzaprine (CYCLOBENZAPRINE 5 MG TABLET) TAKE 1 TABLET BY MOUTH TWICE A DAY Qty: 60 tab(s) Days Supply: 30 Refills: 5 Substitutions Allowed Route To Pharmacy - [facility]/pharmacy #[id number] From: [id number] To: BROOKS THOMSON DO Sent: April 09, 2025 12:12:21 AM CDT Subject: Medication Management Due: April 10, 2025 12:12:21 AM CDT On Hold Pending Signature Dispensed Drug: cyclobenzaprine (cyclobenzaprine 5 mg oral tablet), TAKE 1 TABLET BY MOUTH TWICE A DAY Quantity: 60 tab(s) Days Supply: 30 Refills: 1 Substitutions Allowed Notes from [facility]: [facility]ronOhxudfwc76-45-4651 Evaluation note* Diagnosis Onset Date Resolution Status Admit Date Left carpal tunnel syndrome acuteJuly 2024 9:43amPalmar fibromatosisacuteJuly 2024 9:43am [facility] Work Phone: 1(670) 632-342207-31-2025 Evaluation note* Diagnosis Onset Date Resolution Status Admit Date Left carpal tunnel syndrome acuteJuly 2024 9:43amPalmar fibromatosisacuteJuly 2024 9:43amHistory of right knee joint replacementacuteOctober 2024 8:43amSwelling of right kneeacuteOctober 2024 8:43am [facility] Work Phone: 1(391) 995-183506-17-2025 Evaluation note* Diagnosis Onset Date Resolution Status Admit Date Left carpal tunnel syndrome acuteJune 2024 12:53pmPalmar fibromatosisacuteJune 2024 12:53pmLeft carpal tunnel syndromeacuteJuly 2024 9:43amPalmar fibromatosisacuteJuly 2024 9:43am [facility] Work Phone: 1(131) 637-906606-16-2025 NoteEntered by BROOKS THOMSON DO on February 14, 2025 07:37:22 EDT From: BROOKS THOMSON DO To: [facility]/pharmacy #[id number] Sent: 02/14/2025 07:37:22 EDT Subject: Medication Management Submitted: Complete:metoprolol (Metoprolol Succinate ER 50 mg oral tablet, extended release) Signed by BROOKS THOMSON DO 02/14/2025 07:37:00 EDT Approved with modifications: metoprolol (METOPROLOL SUCC ER 50 MG TAB) TAKE 1 AND 1/2 TABLETS BY MOUTH EVERY DAY Qty: 135 tab(s) Days Supply: 90 Refills: 1 Substitutions Allowed Route To Pharmacy - [facility]/pharmacy #[id number] Patient matched by BROOKS THOMSON DO on 02/14/2025 07:37:01 EDT From: [id number] To: BROOKS THOMSON DO Sent: February 12, 2025 11:41:39 PM CDT Subject: Medication Management Due: February 13, 2025 12:20:41 AM CDT On Hold Pending Signature Dispensed Drug: metoprolol (Metoprolol Succinate ER 50 mg oral tablet, extended release), TAKE 1 AND 1/2 TABLETS BY MOUTH EVERY DAY Quantity: 135 tab(s) Days Supply: 90 Refills: 3 Substitutions Allowed Notes from Pharm[facility]: [facility]ronVgxcqqvh44-10-4787 Note Entered by BROOKS THOMSON DO on January 31, 2025 07:34:13 EDT From: BROOKS THOMSON DO To: [facility]/pharmacy #[id number] Sent: 01/31/2025 07:34:13 EDT Subject: Medication [...] 2 Substitutions Allowed Route To Pharmacy - [facility]/pharmacy #[id number] From: [id number] To: BROOKS THOMSON DO Sent: January 28, 2025 11:41:48 PM CDT Subject: Medication Management Due: January 29, 2025 12:07:55 AM CDT On Hold Pending Signature Dispensed Drug: levothyroxine (levothyroxine 100 mcg (0.1 mg) oral tablet), TAKE 1 TABLET BY MOUTH ON FRIDAY,FRIDAY,FRIDAY,FRIDAY Quantity: 48 tab(s) Days Supply: 84 Refills: 3 Substitutions Allowed Notes from Pharm[facility]: [facility]ronHzeygmqk32-93-4707 Note Entered by BROOKS THOMSON DO on December 13, 2024 07:29:49 EDT From: BROOKS THOMSON DO To: [facility]/pharmacy #[id number] Sent: 12/13/2024 07:29:49 EDT Subject: Medication Management Submitted: Complete:hydrochlorothiazide-triamterene (hydrochlorothiazide-triamterene 25 mg- 37.5 mg oral tablet) Signed by BROOKS THOMSON DO 12/13/2024 07:29:00 EDT Approved with modifications: hydrochlorothiazide-triamterene (TRIAMTERENE-HCTZ 37.5-25 MG TB) TAKE 1 TABLET BY MOUTH EVERY DAY Qty: 90 tab(s) Days Supply: 90 Refills: 1 Substitutions Allowed Route To Pharmacy - [facility]/pharmacy #[id number] From: [facility] [address] To: BROOKS THOMSON DO Sent: December 11, 2024 11:40:02 PM CDT Subject: Medication Management Due: December 12, 2024 12:21:24 AM CDT On Hold Pending Signature Dispensed Drug: hydrochlorothiazide-triamterene (hydrochlorothiazide-triamterene 25 mg-37.5 mg oraltablet), TAKE 1 TABLET BY MOUTH EVERY DAY Quantity: 90 tab(s) Days Supply: 90 Refills: 1 Substitutions Allowed Notes from [facility]: [facility]ronVxridvyk04-09-4557 Note Entered by BROOKS THOMSON DO on November 10, 2024 07:29:19 EDT From: BROOKS THOMSON DO To: [facility]/pharmacy #[id number] Sent: 11/10/2024 07:29:19 EDT Subject: Medication Management Submitted: Complete:diclofenac (diclofenac sodium 75 mg oral delayed release tablet) Signed by BROOKS THOMSON DO 11/10/2024 07:29:00 EDT Approved with modifications: diclofenac (DICLOFENAC SOD EC 75 MG TAB) TAKE 1 TABLET BY MOUTH TWICE A DAY Qty: 60 tab(s) Days Supply: 30 Refills: 5 Substitutions Allowed Route To Pharmacy - [facility]/pharmacy #[id number] From: [id number] To: BROOKS THOMSON DO Sent: November 09, 2024 11:27:23 PM CDT Subject: Medication Management Due: November 10, 2024 12:03:01 AM CDT On Hold Pending Signature Dispensed Drug: diclofenac (diclofenac sodium 75 mg oral delayed release tablet), TAKE 1 TABLET BY MOUTH TWICE A DAY Quantity: 60 tab(s) Days Supply: 30 Refills: 2 Substitutions Allowed Notes [facility]ronBwlyzunf81-88-0211 Evaluation note* Diagnosis Onset Date Resolution Status Admit Date Aftercare following joint replacement acuteJanuary 2024 12:36pmStatus post revision of total knee replacement acuteJanuary 2024 12:36pm [facility] Work Phone: 1(370) 927-819801-08-2025 Evaluation note* Diagnosis Onset Date Resolution Status Admit Date Aftercare following joint replacement acuteJanuary 2024 12:36pmStatus post revision of total knee replacement acuteJanuary 2024 12:36pmAftercare following joint replacementacuteMarch 2024 11:03amStatus post revision of total knee replacementacuteMarch 2024 11:03am [facility] Work Phone: 1(155) 355-383401-08-2025 Evaluation note* Diagnosis Onset Date Resolution Status Admit Date Aftercare following joint replacement acuteJanuary 2024 12:36pmStatus post revision of total knee replacement acuteJanuary 2024 12:36pmAftercare following joint replacementacuteMarch 2024 11:03amStatus post revision of total knee replacementacuteMarch 2024 11:03amAftercare following joint replacementacuteMarch 2024 10:50am Status post revision of total knee [facility]acuteK[facility] 2024 10:50am [facility] Work Phone: [phone] [id number] NoteEntered by BROOKS THOMSON DO on August 18, 2024 07:28:35 EST From: BROOKS THOMSON DO To: [facility]pharmacy #[id number] Sent: 08/18/2024 07:28:35 EST Subject: Medication Management Submitted: Complete:meloxicam (meloxicam 15 mg oral tablet) Signed by BROOKS THOMSON DO 08/18/2024 07:28:00 EST Approved with modifications: meloxicam (MELOXICAM 15 MG TABLET) TAKE 1 TABLET BY MOUTH EVERY DAY Qty: 30 tab(s) Days Supply: 30 Refills: 5 Substitutions Allowed Route To Pharmacy - [facility]/pharmacy #[id number] From: [id number] To: BROOKS THOMSON DO Sent: August 17, 2024 11:46:21 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 Dr. Bradford ispresent in the office today and providing supervision. Sep,resence of right artificial knee joint (ICD-10 - Z96.651) [facility] Other 01-12-2024 Evaluation note* Encounter Date Diagnosis Assessment Notes Treatment Notes Treatment Clinical Notes Sep, Other Prolonged Services 1. H and P date: 09/03/2023 2. Diagnosis: Right total knee aseptic loosening 3. Counseling: Patient received counseling at their history and physical. 4. Coordination of care: The patient was discussed at today's total joints meeting with anesthesia,OR staff, and implant reps in an effort to coordinate the patient's care during the perioperative period. The anesthesiologist was involved in discussions regarding the patient's pain management suchas regional blocks, anesthesia plans the day of surgery such as general versus spinal, as well as afinal review of lab work to ensure the patient could proceed with surgery safely. The property manager was vital for surgery timing and scheduling purposes. The implant rep was also available for necessarydiscussions regarding preoperative templates that were created on preoperative x-rays to ensure the appropriate implants and sizes of implants would be available the day of surgery. The patient's discharge plan was also discussed and the final decision was confirmed. 5. Medication Changes: None 6. Lab Tests: The patient's screening tests including albumin levels, vitamin D levels, hemoglobin,hemoglobin A1c, cotinine serum level, and MRSA nasal [...] plans. Prolonged services time spent: 32 minutes [facility] Other 01-08-2024 Evaluation note* Encounter Date Diagnosis Assessment Notes Treatment Notes Treatment Clinical Notes Sep, Age-related osteopor osis without current pathological fracture (ICD-10 - M81.0) [facility] Other 01-03-2024 Evaluation note* Encounter Date Diagnosis Assessment Notes Treatment Notes Treatment Clinical Notes Sep, Pain due to internal orthopedic prosthetic devices, implants and grafts, initial encounter (ICD-10 - T84.84XA) [facility] Other 01-03-2024 Evaluation note* Encounter Date Diagnosis Assessment Notes Treatment Notes Treatment Clinical Notes Sep, History of total right knee repl acement (ICD-10 - Z96.651) Sep,ain due to internal orthopedic prosthetic devices, implants and grafts, initial encounter (ICD-10 - T84.84XA) Sep,resence of right artificial knee joint (ICD-10 - Z96.651) Sep,ge-related osteoporosis without current pathological fracture (ICD- 10 - M81.0) Sep,Obesity, morbid, BMI 50 or higher (ICD-10 - E66.01) Sep,Other alf (current) drug therapy (ICD-10 - Z79.899) Sep,OtherAspiration Date: 08/15/2023 Alpha-defensin: Negative Synovial CRP: 1.0 Cell [...] 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 Patient does have stairs to get into her home. I think that she be an excellent inpatient candidate as well as acute inpatient rehab candidate. [facility] Other 12-15-2023 Evaluation note* Encounter Date Diagnosis Assessment Notes Treatment Notes Treatment Clinical Notes Aug, History of total right knee repl acement (ICD-10 - Z96.651) Aug,ain due to internal orthopedic prosthetic devices, implants and grafts, initial encounter (ICD-10 - T84.84XA) Aug,resence of right artificial knee joint (ICD-10 - Z96.651) Aug,OtherWe had a long discussion today regarding her right knee presentation as well as x-rays/bone scan. Iexplained that the x-rays and bone scan suggest [...] if this is septic versus aseptic loosening. [facility] Other 09-09-2022 NotePROCEDURE: XR FOOT LT MIN [...] Electronically authenticated by: SCOOTER HO Date: 2022-05-10 16:13[facility]No assessment information [facility] Work Phone: Evaluation note* Diagnosis Onset Date Resolution Status Hypertension acuteHypothyroidismacuteStatus post revision of total replacement of right knee acute [facility] Work Phone: Evaluation noteNo InformationNortPenn High[facility]icate[facility] Other Evaluation note* Diagnosis Onset Date Resolution Status Hypertension acuteHypothyroidismacuteAftercare following joint replacementacuteStatus post revision of total knee replacementacute [facility] Work Phone: Evaluation note* Diagnosis Onset Date Resolution Status Hypertension acuteHypothyroidismacuteAftercare following joint replacementacuteStatus post revision of total knee replacementacuteAftercare following joint replacement acuteStatus post revision of total knee replacementacute [facility] Work Phone: Evaluation note* Diagnosis Onset Date Resolution Status Admit Date Aftercare following joint replacement acuteJanuary 2024 12:36pmStatus post revision of total knee replacement acuteJanuary 2024 12:36pm [facility] Work Phone: History general Narrative - Reported* Type Description Date Medical History Hypothyroidism Medical HistoryArthritisMedical Historyirregular heart beatSurgical Historyboth knees replacedSurgical Historybilateral shoulder surgery [facility] Other Hospital Discharge instructions Additional Instructions Joint Replacement Discharge Instructions Your safety during your recovery process is important to us. Please seek immediate emergency care if you have sudden chest pain or shortness of breath. Additionally, please call our office at [phone] should any of the following occur: wound [...] over time or it could last forever. BILLIE gregorio (peggy): Wear them for 4 weeks on the [...] to walk without your walker and your hospice home care coordinator until the therapist checks you the following [...] and/or laxatives as directed. You may take cyns-coo-jrtyhqy Benadryl if itching occurs without a rash or hives. Icing and elevation will help relieve pain as well, do not underestimate the power of ice and elevation. We do recommend that you stop taking narcotic pain medications by 4-6 weeks after surgery and if necessary, continue to use anti-inflammatory medications such as Mobic (meloxicam), Celebrex (celecoxib), or an voob-dip-itizdii medication (Aleve, Motrin, Ibuprofen, etc). Driving an [...] feel free to call our office at [phone]. You are a priority of ours and we will not be upset with you if you call. We would much rather you call to confirm aspects of your recovery process as opposed to possibly hindering your recovery with inappropriate care. We are committed to providing you with the best care possible. Prince Bradford II, MD Updated 11/15/2022[facility] Work Phone: Reason for referral (narrative)No reason for referral information availableLicking Memorial Hospital Work Phone: Summary Purpose Family History No Family History Records Found Relationship Condition Age at Onset Recorded Date/T christo Not Specified Malignant neoplasm of ovary Unknown HypertensionUnknownfatherMalignant neoplasm of urinary bladderUnknownChronic obstructive pulmonary diseaseUnknownbrotherObstructive sleep apnea syndrome UnknownsisterObstructive sleep apnea syndromeUnknown Relationship Condition Age at Onset Recorded Date/T christo Not Specified Malignant neoplasm of ovary Unknown HypertensionUnknownfatherMalignant neoplasm of urinary bladderUnknownChronic obstructive pulmonary diseaseUnknownbrotherObstructive sleep apnea syndrome UnknownsisterObstructive sleep apnea syndromeUnknownfatherDeceasedUnknownNot SpecifiedHypertensionUnknownMalignant neoplasmUnknownDeceasedUnknown Relationship Condition Age at Onset Recorded Date/T christo mother Malignant neoplasm of ovary Unknown HypertensionUnknownfatherMalignant neoplasm of urinary bladderUnknownChronic obstructive pulmonary diseaseUnknownbrotherObstructive sleep apnea syndrome UnknownsisterObstructive sleep apnea syndromeUnknownfatherDeceasedUnknownmother HypertensionUnknownMalignant neoplasmUnknownDeceasedUnknown Advance Directives No Advanced Directives Records Found [...] Pain Revision RTK Pre Op Right Knee PainReason for VisitHypertension Hypothyroidism Status post revision of total replacement of right knee Chief Complaint Right Knee Pain Z96.659 - Presence of unspecified artificial knee 4 WEEKSReason for VisitHypertension Hypothyroidism Aftercare following joint replacement Status post revision of total knee replacement Chief Complaint Right Knee Pain Z96.659 - Presence of unspecified artificial knee 4 WEEKS Z47.1 - Aftercare following joint replacement surg 6 weeksReason for VisitHypertension Hypothyroidism Aftercare following joint replacement Status post [...] 08, 2024 12:36pm Aftercare following joint replacement [facility] 2024 11:03am Status post revision of [...] Admit Date Aftercare following joint replacement Donte judy 2024 12:36pm Status post revision of total knee repla cement September 08, 2024 12:36pm Aftercare following joint replacement [facility] 2024 11:03am Status post revision of total knee repla cement November 03, 2024 11:03am Aftercare following joint replacement [facility] 2024 10:50am Status post revision of total knee repla cement November 11, 2024 10:50am Chief Complaint Admit Date CONSULT DR. 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, 2025 12:5 3pm Left carpal tunnel syndrome March 31 9:43am Palmar fibromatosis March 31, 2025 9:43 am Chief Complaint Admit Date 1 MONTH March 31, 2025 9:43 am Z96.651 M25.561 June 01, 2025 6: 03pm Reason for Visit Admit Date Left carpal tunnel syndrome March 31 9:43am Palmar fibromatosis March 31, 2025 9:43 am Chief Complaint Admit Date 1 MONTH March 31, 2025 9:43 am Z96.651 M25.561 June 01, 2025 6: 03pm OP SP INCREASED RT KNEE PAIN June 8:43am Z96.651 - Presence of right artificial k nee joint June 17, 2025 8:50am Reason for Visit Admit Date Left carpal tunnel syndrome March 31 9:43am Palmar fibromatosis March 31, 2025 9:43 am History of right knee joint replacement June 17, 2025 8:43am Swelling of right knee June 17 8:43am Additional Source Comments INFORMATION SOURCE (unrecogn ized section and content) DATE CREATED AUTHOR 02/25/2018 [facility] DATE CREATED AUTHOR AUTHOR'S ORGANIZ ATION 09/12/2022 [facility] DATE CREATED AUTHOR AUTHOR'S ORGANIZ ATION 03/04/2024 [facility] EPIC DATE CREATED AUTHOR AUTHOR'S ORGANIZ ATION 06/22/2025 [facility] DATE CREATED AUTHOR AUTHOR'S ORGANIZ ATION 06/26/2025 [facility] DATE CREATED AUTHOR AUTHOR'S ORGANIZ ATION 07/03/2025 [facility] REASON FOR VISIT (unrecogniz ed section and [...] Active Start: September 08, 2024 End: September 08Kristi Walton ProviderActiveStart: September 08, 2024 End: September 08, 2024 Team Status: Inactive Member Role Status Dates Brooks Thomson DO Primary Care Provider Active Start: September 08, 2024 End: September 08, 2024Prince Bradford II, MDAttending ProviderActiveStart: September 08, 2024 End: September 08, 2024 Team Status: Active Member Role Status Dates Prince Bradford II, MD Admit Provider, Attending Provider, Other Provider Active Start: September 16, 2023 Kristi Briseno ProviderActiveStart: September 16, 2023 Seema Issa RNOther ProviderActiveStart: September 16, 2023 Carmita Jara , ANGELOOther ProviderActiveStart: September 16, 2023 Angelica Acevedo RNOther ProviderActiveStart: September 16, 2023 Galina Umaña RNOther ProviderActiveStart: September 16, 2023 Yara Mesa , ANGELOOther ProviderActiveStart: September 16, 2023 Kellie Salazar RNOther ProviderActiveStart: September 16, 2023 Rigoberto Lea MDOther ProviderActiveStart: September 16, 2023 Neeta Lilly APRNOther ProviderActiveStart: September 16, 2023 Jarrell Acevedo DOOther ProviderActiveStart: September 16, 2023 Christos Conrad MDOther ProviderActiveStart: September 16, 2023 Mani Quevedo , DOOther ProviderActiveStart: September 16, 2023 Archie Beasley MDOther ProviderActiveStart: September 16, 2023 Jolene Pedersen MDOther ProviderActiveStart: September 16, 2023 Carley Conway , APRNOther ProviderActiveStart: September 16, 2023 Lizbet Jin MDOther ProviderActiveStart: September 16, 2023 Jeff Evans MDOther ProviderActiveStart: September 16, 2023 Thu Wright MDOther ProviderActiveStart: September 16, 2023 Andres Macias MDOther ProviderActiveStart: September 16, 2023 Kin Alberts , DOOther ProviderActiveStart: September 16, 2023 Mohan Howard MDOther ProviderActiveStart: September 16, 2023 Min Kuo MDOther ProviderActiveStart: September 16, 2023 Nieves Jaquez , [employer]-COther ProviderActiveStart: September 16, 2023 Shon Shin MDOther ProviderActiveStart: September 16, 2023 Tadeo Hernandez MDOther ProviderActiveStart: September 16, 2023 John Russ MDOther ProviderActiveStart: September 16, 2023 Armaan Stovall MDOther ProviderActiveStart: September 16, 2023 Heather Landry , DOOther ProviderActiveStart: September 16, 2023 Jerry Barker , DOOther ProviderActiveStart: September 16, 2023 Manuel You , DOOther ProviderActiveStart: September 16, 2023 Teresa Walker , APRNOther ProviderActiveStart: September 16, 2023 Jamey Gil , DOOther ProviderActiveStart: September 16, 2023 Shant Kramer MDOther ProviderActiveStart: September 16, 2023 Meagan Cheatham , APRNOther ProviderActiveStart: September 16, 2023 Darline Renteria , APRNOther ProviderActiveStart: September 16, 2023 Jennifer Munguia MDOther ProviderActiveStart: September 16, 2023 Darien Correia MDOther ProviderActiveStart: September 16, 2023 Janetstanton Collado , DOOther ProviderActiveStart: September 16, 2023 Sofia Hilliard APRNOther ProviderActiveStart: September 16, 2023 Kp Houser , DOOther ProviderActiveStart: September 16, 2023 Amita Jerome RNOther ProviderActiveStart: September 16, 2023 Leonel Dinh MDOther ProviderActiveStart: September 16, 2023 Team Status: Inactive Member Role Status Dates Prince Bradford II, MD Attending Provider Active Start: October 29, 2023 End: October 29Kristi Walton Care ProviderActiveStart: October 29, 2023 End: October 29, 2023 Team Status: Inactive Member Role Status Dates Brooks Thomson DO Primary Care Provider Active Start: October 29, 2023 End: October 29Jermaine Ren II ProviderActiveStart: October 29, 2023 End: October 29, 2023 Team Status: Inactive Member Role Status Dates Prince Bradford II, MD Attending Provider Active Team Status: Inactive Member Role Status Dates Brooks Thomson DO Primary Care Provider Active Jermaine Calvo II ProviderActive Team Status: Inactive Member Role Status Dates Prince Bradford II, MD Attending Provider Active Kristi Briseno ProviderActive Team Status: Inactive Member Role Status Dates [...] Active Start: September 03, 2023 End: September 03Jermaine Ren II ProviderActiveStart: September 03, 2023 End: September 03, 2023 Team Status: Inactive Member Role Status Dates Prince Bradford II, MD Attending Provider Active Start: September 04, 2023 End: September 04Kristi Walton Care ProviderActiveStart: September 04, 2023 End: September 04, 2023 Team Status: Active Member Role Status Dates Prince Bradford II, MD Attending Provider Active Start: September 05, 2023 ELZBIETA Brisenoricecil Care ProviderActiveStart: September 05, 2023 Team Status: Active Member Role Status Brodie Bradford II, MD Attending Provider Active Start: December 10, 2023 ELZBIETA Brisenoritashiy Care ProviderActiveStart: December 10, 2023 Team Status: Inactive Member Role Status Brodie Thomson DO Primary Care Provider Active Start: December 10, 2023 End: December 09torrey Bradford II, MDAttending ProviderActiveStart: December 10, 2023 End: December 10, 2023 Team Status: Inactive Member Role Status Brodie Bradford II, MD Attending Provider Active Start: December 10, 2023 End: December 09ELZBIETA Waltonritashiy Care ProviderActiveStart: December 10, 2023 End: December 10, 2023 Team Status: Active Member Role Status Brodie Bradford II, MD Attending Provider Active Start: September 08, 2024 ELZBIETA Brisenorimary Care ProviderActiveStart: September 08, 2024 Team Status: Inactive Member Role Status Dates Brooks Thomson DO Primary Care Provider Active Start: November 03, 2024 End: November 03, 2024Prince Bradford II, MDAttending ProviderActiveStart: November 03, 2024 End: November 03, 2024 Team Status: Inactive Member Role Status Dates Brooks Thomson DO Primary Care Provider Active Start: November 11, 2024 End: November 11, 2024Robdanish Bradford II MDAttending ProviderActiveStart: November 11, 2024 End: November 11, 2024 Team Status: Active Member Role Status Brodie Bradford II, MD Attending Provider Active Start: November 11, 2024 ELZBIETA Brisenoritashiy Care ProviderActiveStart: November 11, 2024 Team Status: Inactive Member Role Status Brodie Bradford II, MD Attending Provider Active Start: November 11, 2024 End: November 11ELZBIETA Waltonritashiy Care ProviderActiveStart: November 11, 2024 End: November 11, 2024 Team Status: Inactive Member Role Status Brodie Thomson DO Primary Care Provider Active Start: February 15, 2025 End: February 15olljolene Crook , MDAttending ProviderActiveStart: February 15, 2025 End: February 15, 2025 Team Status: Inactive Member Role Status Dates Brooks Thomson DO Primary Care Provider Active Start: March 31, 2025 End: March 31olljolene Crook , MDAttending ProviderActiveStart: March 31, 2025 End: March 31, 2025 Team Status: Inactive Member Role Status Dates Brooks Thomson DO Primary Care Provider Active Start: June 01, 2025 End: June 01, 2025Prince Bradford II, MDAttending ProviderActiveStart: June 01, 2025 End: June 01, 2025 Team Status: Active Member Role/Relationship Status Brodie Thomson DO Primary Care Provider Active Team Status: Inactive Member Role/Relationship Status Brodie Thomson DO Primary Care Provider Active Start: March 31, 2025 End: March 31erin Crook , LUCRECIAttending ProviderActiveStart: March 31, 2025 End: March 31, 2025 Team Status: Inactive Member Role/Relationship Status Dates Brooks Thomson DO Primary Care Provider Active Start: June 01, 2025 End: June 01, 2025Robdanish Bradford II, MDAttending ProviderActiveStart: June 01, 2025 End: June 01, 2025 Team Status: Inactive Member Role/Relationship Status Brodie Thomson DO Primary Care Provider Active Start: June 17, 2025 End: June 17, 2025Robdanish Bradford II, MDAttending ProviderActiveStart: June 17, 2025 End: June 17, 2025 Team Status: Active Member Role/Relationship Status Dates Prince Bradford II, MD Attending Provider Active Start: June 17, 2025 Kristi Briseno ProviderActiveStart: June 17, 2025 Team Status: Inactive Member Role/Relationship Status Dates Prince Bradford II, MD Attending Provider Active Start: June 17, 2025 End: June 17Kristi Walton ProviderActiveStart: June 17, 2025 End: June 17, 2025 Goals (unrecognized section and content) Goals [...] BE BASED ON THE PRIMARY CLINICAL RECORDS. [facility] [employer] [facility]. provides no warranty or guarantee of the accuracy or completeness of information in this document.
--- OUTSIDE RECORDS SUMMARY | 2025-07-05 12:52 | XMS_ITS | Clinical Summary ---
Author Organization [facility] Address [id number] [place] [address] Care Team Providers Care Jelly Maker Name Role Phone Brooks Rodarte DO Primary Care Provider [phone] Immunizations ImmunizationAdministration DatesNext DueCovid-19,mrna, Lnp-s, Pf, 50mcg/0.5ml 12+ Fyxlyawg97/07/2023 Social History Tobacco UseTypesPacks/DayYears UsedDateSmoking Tobacco: Never AssessedChildcare AnswerDate RqkjexqkDcvtcjvolQxdrvzq04/12/2019EmploymentAnswerDate Recorded VzlzggsyzrTowxnot44/12/2019CommentsUnknownSex and Gender Information ValueDate RecordedSex Assigned at BirthNot on fileLegal HjdDeylbr68/06/2015 12:02 PM EDTGender IdentityNot on fileSexual OrientationNot on file Plan of Treatment Health MaintenanceDue DateLast DoneCommentsDepression Hvevsaiuj38/19/1971Tobacco Uknlfvewn65/19/1971Adult BMI Jxycedzzl18/19/1977DTaP,Tdap and Td Vaccines (1 - Tdap)1978Zoster (Shingles) Vaccine (1 of 2)2009Fall Risk Screening 4COVID-19 Vaccine ( - 2024- season)5109/07/2022, 07/02/2022, 07/31/2021, Additional history existsInfluenza Ozjwryz85/01/35752209/07/2022, 2RSV ( or age 60+ yrs)Uvmoeyjcw48/07/2023 Medical Devices Not on file Insurance Care Teams Team MemberRelationshipSpecialtyStart DateEnd Date Brooks Rodarte DO PCP - GeneralFamily Qmcqticw32/10/23
--- NOTE | 2025-07-05 12:54 | MR_ITS ---
The [address] [address] Patient Name: JANET ELIAS MRN: [id number] date: 1960 Sex: F Assigned Patient Location: MRI Current Patient Location: MRI Accession/Order Number: [id number] Exam Date: 07/05/2025 13:07 Report Date: 07/05/2025 15:43 At the request of: RONNIE OREILLY CNP Procedure: MR lumbar spine wo con MR lumbar spine wo con 07/05/2025 2:04 PM SIGNS AND SYMPTOMS: Chronic low back pain radiating into gluteal region PROTOCOL: Multiplanar multisequence MR images of the lumbar spine without IV contrast COMPARISON: 05/24/2025 FINDINGS: There is 3 mm of anterolisthesis of L3 upon L4. There is 5 mm of antral upon L5. The bones are , Alignment otherwise. There is preservation of vertebral body heights. There is severe disc height loss at T12-L1, L1-L2, L2-3 and L3-4, and L4-5. A type I endplate edema at T12-L1, L1-L2, L3-L4, and L4-5. The marrow signal is within normal limits otherwise. The conus terminates at the superior endplate of the L1 vertebral body level. No epidural or paraspinous fluid collection is appreciated. At T12-L1: There is a circumferential disc bulge with endplate osteophyte formation and facet hypertrophy. There is moderate to severe right and mild left neural foraminal narrowing without spinal canal stenosis. At L1-L2: There is a broad-based disc bulge with facet hypertrophy and endplate osteophyte formation. There is moderate left and mild right neural foraminal narrowing with mild spinal canal narrowing. At L2-L3: There is a broad-based disc bulge with facet hypertrophy and ligamentum flavum thickening. There is mild spinal canal stenosis with mild right and moderate left neural foraminal narrowing. At L3-L4: There is a broad-based disc bulge with facet hypertrophy. There is mild spinal canal narrowing with mild right and moderate left neural foraminal narrowing. At L4-L5: There is a circumferential disc bulge with facet hypertrophy and ligamentum flavum thickening. There is moderate to severe spinal canal stenosis with moderate bilateral neural foraminal narrowing. At L5-S1: Facet degenerative changes are present. There is accompanying facet hypertrophy. There is mild bilateral neural foraminal narrowing without significant spinal canal narrowing. MR/MR lumbar spine wo con IMPRESSION: At L4-L5: There is a circumferential disc bulge with facet hypertrophy and ligamentum flavum thickening. There is moderate to severe spinal canal stenosis with moderate bilateral neural foraminal narrowing. At L1-L2: There is a broad-based disc bulge with facet hypertrophy and endplate osteophyte formation. There is moderate left and mild right neural foraminal narrowing with mild spinal canal narrowing. At L2-L3: There is a broad-based disc bulge with facet hypertrophy and ligamentum flavum thickening. There is mild spinal canal stenosis with mild right and moderate left neural foraminal narrowing. At L3-L4: There is a broad-based disc bulge with facet hypertrophy. There is mild spinal canal narrowing with mild right and moderate left neural foraminal narrowing. Impression dictated by: Steve Loza M.D. 07/05/2025 3:43 PM Dictation Location: [place] [address] Electronically authenticated by: [id number] Y Date: 07/05/2025 15:43
== END 2025-07-05 12:49 | disposition home or self-care (01) ==
LOC: MRI 12:48
PROVIDERS: PCP Family Medicine; Visit Provider Nurse Practitioner Family
DX: M54.16 Radiculopathy, lumbar region (principal); M51.26 Other intervertebral disc displacement, lumbar region
CPT/HCPCS: 72148